=== PATIENT | male | born 1965 | race Hispanic/Latino ===

== ENCOUNTER 2018-10-11 18:26 | Emergency (ER) | payer SELFPAY ==
[2018-10-11] MEDS ORDERED: ONDANSETRON 4 MG/2 ML VIAL ONE (19:00)
[2018-10-11] MEDS ORDERED: FENTANYL CITR 100 MCG/2 ML ONE (19:00)
[2018-10-11] MEDS ORDERED: NA CHLORIDE 0.9% 1,000 ML ONE (19:00)
[2018-10-11 19:06] LABS: Basophils % 0.7 % (0-1.3); Hematocrit 38.7 % (39.6-49.0); Lymphocytes % 20.9 % (15.3-44.8); MPV 8.7 fL (7.6-11.3); RBC Red Blood Cell Count 3.93 M/uL (4.33-5.43)
[2018-10-11 19:10] LABS: Protime INR 1.05
[2018-10-11 19:21] LABS: Albumin 3.3 g/dL (3.4-5.0); Bilirubin Total 0.4 mg/dL (0.2-1.0); Potassium 3.7 mmol/L (3.5-5.1)
[2018-10-11 20:15] LABS: Urine Bacteria 20-50 /HPF (NONE SEEN); Urine Culture Reflex Order REFLEXED; Urine Mucus 1+ /HPF (NONE SEEN)
[2018-10-11 20:15] LABS: Urine Blood TRACE (NEG); Urine Glucose NEGATIVE (NEG); Urine Protein NEGATIVE (NEG); Urine pH 5.5 (5.0-7.0)
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
--- NOTE | 2018-10-12 11:22 | EKG ---
Test Date: 2018-10-11 Test Time: 18:58:08 Dining Services Director: SWG MEASUREMENT RESULTS: Intervals: Rate: 55 DC: 158 QRSD: 112 QT: 418 QTc: 399 [place]: P: 32 DC: 158 QRS: -34 T: 6 INTERPRETIVE STATEMENTS: Sinus bradycardia Left axis deviation Possible Lateral infarct, age undetermined Abnormal ECG Compared to ECG 07/13/2015 05:25:38 Left-axis deviation now present Myocardial infarct finding now present Sinus rhythm no longer present Electronically Signed On 10-12-18 11:19:23 CDT by Wenceslao Baez
== END 2018-10-11 21:24 | disposition home or self-care (01) ==
LOC: ER 18:26
DX: S61.031A Puncture wound without foreign body of right thumb without damage to nail, initial encounter (principal); T63.091A Toxic effect of venom of other snake, accidental (unintentional), initial encounter; R11.0 Nausea
CPT/HCPCS: 36415; 80053; 81003; 81015; 82550; 85025; 85379; 85384; 85610; 85730; 87086; 87088; 93005; 96361; 96374; 96375; 99284; J2405; J3010; J7030

== ENCOUNTER 2018-12-26 21:36 | Emergency (ER) | payer OTHER ==
[2018-12-26] MEDS ORDERED: LIDOCAINE 4% PATCH ONE (22:21)
[2018-12-26] MEDS ORDERED: KETOROLAC 30 MG/ML INJ ONE (22:21)
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
[2018-12-27 02:09] VITALS: BP 123/86; TEMP 97; O2SAT 97
== END 2018-12-26 23:37 | disposition home or self-care (01) ==
LOC: ER 21:36
DX: M25.562 Pain in left knee (principal); G89.29 Other chronic pain; F17.210 Nicotine dependence, cigarettes, uncomplicated
CPT/HCPCS: 96372; 99283

== ENCOUNTER 2020-06-10 15:06 | Inpatient (IN) | payer OTHER ==
[2020-06-10 22:39] LABS: Absolute Lymphocytes (CBC) 0.7 K/uL (0.7-4.9); Basophils % 0.1 % (0-1.3); Hematocrit 44.6 % (39.6-49.0); MPV 9.1 fL (7.6-11.3)
[2020-06-10] MEDS ORDERED: MORPHINE 4 MG/ML SYR ONE (22:39)
[2020-06-10] MEDS ORDERED: NA CHLORIDE 0.9% 1,000 ML ONE (22:39)
[2020-06-10] MEDS ORDERED: ACETAMINOPHEN 500 MG TAB ONE (22:39)
[2020-06-10] MEDS ORDERED: ONDANSETRON 4 MG/2 ML VIAL ONE (22:39)
[2020-06-10 22:50] LABS: ALT/SGPT 20 U/L (12-78); AST/SGOT 17 U/L (15-37); Albumin 2.7 g/dL (3.4-5.0); Alkaline Phosphatase 162 U/L (45-117); BUN Blood Urea Nitrogen 18 mg/dL (7-18); Bicarbonate 26 mmol/L (21-32); Bilirubin Direct 0.4 mg/dL (0-0.2); Bilirubin Total 0.8 mg/dL (0.2-1.0); Glucose Level 122 mg/dL (74-106); Lipase 119 U/L (73-393); Potassium 3.8 mmol/L (3.5-5.1); Protein, Total 8.3 g/dL (6.4-8.2); Sodium Level 135 mmol/L (136-145)
[2020-06-10 23:30] LABS: Blood Morphology Comment NOT SEEN (NOT SEEN); Platelet Estimate ADEQ
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
[2020-06-11 00:24] LABS: Urine Blood 2+ (Negative); Urine Glucose Negative (Negative); Urine Protein 2+ (Negative); Urine Specific Gravity <=1.005 (1.005-1.030); Urine pH 5.5 (5.0-7.0)
[2020-06-11] MEDS ORDERED: PIPER/TAZO/NS 3.375gm 3.375 GM/100 ML BAG ONE ×5 (00:25→17:14)
[2020-06-11 01:53] VITALS: BMI 35.9
[2020-06-11] MEDS: NA CHLORIDE 0.9% 1,000 ML IV SCH ×4 (02:01→20:29)
--- NOTE | 2020-06-11 03:31 | P.HP ---
Certification for Inpatient Patient admitted to: Inpatient With expected LOS: >2 Midnights Patient will require the following post-hospital care: None Practitioner: I am a practitioner with admitting privileges, knowledge of patient current condition, hospital course, and medical plan of care. Services: Services provided to patient in accordance with Admission requirements found in Title 42 Section 412.3 of the Code of Federal Regulations Patient History Date of Service: 06/11/20 Reason for admission: perforated diverticulitis History of Present Illness: Mr. 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 He said the pain has been excruciating and he has been unable to move since then. Pain radiates to his back and feels worse when he is lying on his back. Relief with pain medication and sitting upright. Reports night sweats, chills, bloating, nausea and vomiting. He smokes 1/2ppd. WBC 17.6. Alk Phos 162. CT scan suspicious for perforated diverticulitis. Allergies No Known Allergies Allergy (Verified 06/11/20 01:53) - Past Medical/Surgical History Has patient received pneumonia vaccine in the past: No Diabetic: No -: Chronic Knee Pain -: Knee Surgery -: Ankle Surgery - Family History Mother -: Heart disease Father -: Heart disease - Social History Smoking Status: Light Tobacco smoker (1-9 cigarettes/day) Alcohol use: No CD- Drugs: No Caffeine use: No Place of Residence: Home Review of Systems General: Chills, Sweats, As per HPI Eyes: Unremarkable ENT: Unremarkable Respiratory: Unremarkable Cardiovascular: Unremarkable Gastrointestinal: Nausea, Vomiting, Abdominal Pain, As per HPI Musculoskeletal: Unremarkable Integumentary: Unremarkable Neurological: Unremarkable Lymphatics: Unremarkable Physical Examination - Vital Signs Temperature: 98.4 F Blood Pressure: 142/81 Pulse: 89 Respirations: 18 Pulse Ox (%): 99 - Physical Exam General: Alert, In no apparent distress, Oriented x3, Cooperative HEENT: Atraumatic, Normocephalic, PERRLA, Mucous membr. moist/pink, EOMI, Sclerae nonicteric Neck: Supple, 2+ carotid pulse no bruit, JVD not distended, No Thyromegaly, No LAD Respiratory: Clear to auscultation bilaterally, Normal air movement Cardiovascular: No edema, Normal pulses, Regular rate/rhythm, Normal S1 S2, No gallops, No rubs, No murmurs Capillary refill: <2 Seconds Gastrointestinal: Normal bowel sounds, No ascites, No tenderness, No masses, No rebound, No guarding Musculoskeletal: No clubbing, No swelling, No contractures, No erythema, No tenderness, No warmth Integumentary: No rashes, No breakdown, No significant lesion, No tenderness/swelling, No erythema, No warmth, No cyanosis Neurological: Normal speech, Normal strength at 5/5 x4 extr, Normal tone, Sensation intact, Cranial nerves 3-12 intact, Normal affect Lymphatics: No axilla or inguinal lymphadenopathy - Studies Laboratory Data (last 24 hrs) 06/10/20 22:00: WBC 17.70 H, Hgb 14.3, Hct 44.6, Plt Count 257 06/10/20 22:00: Sodium 135 L, Potassium 3.8, BUN 18, Creatinine 0.85, Glucose 122 H, Total Bilirubin 0.8, AST 17, ALT 20, Alkaline Phosphatase 162 H, Lipase 119 Assessment and Plan - Plan Assessment perforated diverticulitis BMI >35 tobacco use disorder Plan Adri consulted NPO, Zosyn q6hr, Zofran and morphine PRN, IVF0 Urinalysis pending, 2+ blood on dipstick A1c, lipid panel, tsh/t4 pending Discharge Plan: Home Plan to discharge in: 48 Hours - Advance Directives Does patient have a Living Will: No Does patient have a Durable POA for Healthcare: No - Code Status/Comfort Care Code Status Assessed: Yes (full code ) Critical Care: No Time Spent Managing Pts Care (In Minutes): 70
[2020-06-11] MEDS ORDERED: NA CHLORIDE 0.9% 1,000 ML ONE ×2 (03:46→12:45)
[2020-06-11] MEDS: PIPER/TAZO/NS 3.375gm 3.375 GM/100 ML BAG IVPB SCH ×3 (05:51→17:03)
[2020-06-11 06:22] LABS: Absolute Lymphocytes (CBC) 0.9 K/uL (0.7-4.9); Basophils % 0.5 % (0-1.3); Hematocrit 36.6 % (39.6-49.0); Lymphocytes % 5.3 % (15.3-44.8); MPV 8.8 fL (7.6-11.3); RBC Red Blood Cell Count 3.92 M/uL (4.33-5.43)
[2020-06-11 06:47] LABS: ALT/SGPT 16 U/L (12-78); AST/SGOT 15 U/L (15-37); Albumin 2.1 g/dL (3.4-5.0); Alkaline Phosphatase 127 U/L (45-117); BUN Blood Urea Nitrogen 18 mg/dL (7-18); Bicarbonate 26 mmol/L (21-32); Bilirubin Total 0.7 mg/dL (0.2-1.0); Glucose Level 102 mg/dL (74-106); HDL Cholesterol 10 mg/dL (40-60); LDL Cholesterol, Calculated 62 (<130); Phosphorus 2.8 mg/dL (2.5-4.9); Potassium 3.4 mmol/L (3.5-5.1); Protein, Total 6.4 g/dL (6.4-8.2); Sodium Level 138 mmol/L (136-145)
--- NOTE | 2020-06-11 10:28 | CON ---
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 He said he has had excruciating pain since then, but able to move since then. It radiated through the back, predominantly on the le ft side of his abdomen. It radiated through the entire abdomen shortly after his initial onset. He reported night sweats, chills, bloating, nausea, vomiting, but no similar episodes before or in the p ast. His last colonoscopy was over 20 years ago. He continues to have gas and bowel movement as of yesterday. His pain is mildly improved since being brought to the hospital. Past Medical History: Significant for tobacco use, chronic knee pain. Past Surgical History: Includes only knee surgery and ankle surgery. Social History: Smoking; he smokes half a pack to a pack per day. He denies alcohol or recreational drug use. He does use methadone. He has a history of chronic pain medication abuse. Home Medications: He cannot recall. Review of Systems: A 10-point review of systems other than HPI, denies. Physical Examination: Vital Signs: At the time of my examination; his vital signs were a BMI of 36, his blood pressure 125 /63, pulse 68, respiratory rate 17, temperature 98.1. General: He is awake, alert, oriented. Psychiatric: He is appropriate. Conversive. He appears in no apparent distress. HEENT: Normocephalic. His sclerae are anicteric. His mucous membranes are moist. His dentition is very poor with multiple teeth missing and broken. Neck: Supple without JVD. Chest: Normal expansion and excursion. Cardiovascular: Regular rate and rhythm. Pulmonary: Clear to auscultation bilaterally. Abdomen: Soft with global tenderness to palpation, worse in the left lower quadrant and suprapubic a aggie near the midline. He has mild rebound, mild voluntary guarding, and no peritonitis. Extremities: No clubbing, cyanosis, or edema. Skin: Warm and dry. Laboratory Data: Reveals a white blood count of 16.6, hemoglobin is 12.0, hematocrit 36.6, platelet count is 222. Neutrophils are 87%. His sodium is 138, potassium 3.4, chloride 105, carbon dioxide 2 6, BUN is 18, creatinine 0.64, glucose is 102. His calcium is 8.0, phosphorus 2.8, magnesium 2.0, to daysi bilirubin 0.7, direct bilirubin 0.4 on admission. AST 15, ALT 16, alkaline phosphatase 127. His lipase is 119 on admission. His urine had 2+ blood and ketones and protein on evaluation. He had a CT scan performed of the abdomen and pelvis, which was read by the [facility] as per forated acute sigmoid colonic diverticulitis, a [id number] amount of intraperitoneal free air, and formation of 2 nearby gas and fluid containing collections measuring 6.3 and 7.3 cm, both of the se mostly contained gas. Assessment And Plan: This is a 55-year-old male, who presents with signs and symptoms of perforated diverticulitis. 1.IV fluid hydration. 2.Antibiotic coverage with Zosyn 3.375 IV q.6. 3.Continue medical management, electrolyte correction. 4.Continue medical management for his history of drug abuse and methadone usage. 5.I have evaluated the patient and have indicated the patient would benefit from IV therapy and pote ntial interventional radiologic drainage of these collections should they progress and should his sym ptoms not improve significantly. If this is not an option, I have also explained that the patient co uld potentially require surgery should his symptoms worsen and that would entail an exploratory lapar otomy, possible bowel resection, possible colostomy creation and indicated procedures. The patient agrees to proceed with the above stated roma nDella PLEITEZ/GREY Voice ID: [id number] Report ID: [id number]
--- NOTE | 2020-06-11 11:52 | RAD REPORT ---
EXAM DESCRIPTION: CT ABDOMEN PELVIS WITH IV CONTRAST CLINICAL HISTORY: ABD PAIN. COMPARISON: None. TECHNIQUE: CT of the abdomen and pelvis was performed following intravenous administration of iodina jhonny contrast. Arterial phase images through the abdomen, and portal venous phase images through the a bdomen and pelvis were obtained. Oral contrast was not administered. Axial, coronal, and sagittal sof t tissue window reconstructions were created and sent to PACS. This exam was performed according to our departmental dose-optimization program, which includes autom ated exposure control, adjustment of the mA and/or kV according to patient size and/or use of iterati ve reconstruction technique. FINDINGS: Thoracic: No significant abnormality. Hepatobiliary: Punctate hypodense lesion in the superior left hepatic lobe, possibly a cyst. No aliza rning hepatic lesion identified. The hepatic and portal veins are patent. The gallbladder is unremark able. No biliary ductal dilatation. Pancreas: Unremarkable. Spleen: Unremarkable. Gastrointestinal: There is an inflamed diverticulum in the proximal sigmoid colon with mild surroundi ng fat stranding, and a small to moderate amount of free air extending into the anterior upper abdome n. There are two gas and fluid containing collections which contain mostly gas, which are located in the left mid abdomen (5.4 x 6.3 cm), and in the midline central abdomen (7.3 x 4.5 cm). No evidence o f bowel obstruction. The appendix is normal. Adrenals: No abnormality identified in either adrenal gland. Renal: No concerning parenchymal abnormality in either kidney. No hydronephrosis or urolithiasis. Bladder/Reproductive: Unremarkable appearance of the urinary bladder by CT technique. Vascular/Lymphatics: No lymphadenopathy identified by CT size criteria. Abdominal aorta is normal in caliber. Trace calcific atherosclerosis. The major visceral vessels are patent. Musculoskeletal: No concerning osseous lesion identified. Disc degenerative changes in the lower lumb ar spine. Fluid / peritoneum: No significant free fluid. No free intraperitoneal air identified. IMPRESSION Perforated acute sigmoid colonic diverticulitis a small to moderate amount of intraperito leesa free air, and formation of two nearby gas and fluid containing collections, measuring 6.3 cm and 7.3 cm (both of these mostly contains gas). THIS REPORT CONTAINS FINDINGS THAT MAY BE CRITICAL TO PATIENT CARE: The findings were verbally discu ssed via telephone conference with Dr. Jose Angel Randolph on 06/10/2020 11:49 PM CDT. The results were ack nowledged and understood. Electronically signed by: Jolynn Garcia MD 06/10/2020 11:53 PM CDT Due to temporary technical issues with the PACS/Fluency reporting system, reports are being signed by the in house radiologist without review as a courtesy to ensure prompt reporting. The interpreting r adiologist is fully responsible for the content of the report.
[2020-06-11] MEDS ORDERED: MORPHINE 2 MG/ML SYR ONE (13:16)
[2020-06-11] MEDS: MORPHINE 2 MG/ML SYR IV PRN ×2 (13:20→21:50)
--- NOTE | 2020-06-11 16:39 | P.PN ---
Subjective Date of Service: 06/11/20 Chief Complaint: perforated diverticulitis Subjective: Improving Physical Examination - Vital Signs Temperature: 98.7 F Blood Pressure: 131/66 Pulse: 87 Respirations: 17 Pulse Ox (%): 97 - Studies Laboratory Data (last 24 hrs) 06/10/20 22:00: WBC 17.70 H, Hgb 14.3, Hct 44.6, Plt Count 257 06/10/20 22:00: Sodium 135 L, Potassium 3.8, BUN 18, Creatinine 0.85, Glucose 122 H, Total Bilirubin 0.8, AST 17, ALT 20, Alkaline Phosphatase 162 H, Lipase 119 Assessment & Plan Discharge Plan: Home Plan to discharge in: Greater than 2 days Physician Review Additional Text: Physical exam: Patient alert, cooperative. Still with mild pain. Heart: Regular rate and rhythm heart Lungs: Clear to auscultation Abdomen: Tender to the abdominal region. Impression: Perforated acute sigmoid colonic diverticulitis with small to moderate amount of enteral peritoneal free air and formation of 2 nearby gas and fluid containing collections measuring 6.3 cm and 7.3 cm mostly containing gas Prediabetes Plan: Patient remains n.p.o. at this time. Continue antibiotic therapy. Continue DVT prophylaxis. Continue pain medication. Case discussed with surgery. Continue to monitor the patient closely. Serial exams to follow. If worse patient may require surgical intervention. Patient still may require intervention including interventional radiology but this will be determined in the next couple of days. Patient will likely require repeat CT scan to further evaluate. Patient with prediabetes. We will monitor this closely. Continue to reassess. We will discuss case further with surgery tomorrow. Time Spent Managing Pts Care (In Minutes): 55
[2020-06-11] MEDS: ENOXAPARIN 40 MG/0.4 ML SQ SCH (17:00)
[2020-06-11] MEDS ORDERED: ENOXAPARIN 40 MG/0.4 ML SQ ONE (17:14)
[2020-06-11] MEDS ORDERED: PIPER/TAZO/NS 3.375gm 6.750 GM/200 ML BAG ONE (20:17)
[2020-06-11 22:04] LABS: Urine Appearance CLOUDY (Clear); Urine Blood 2+ (Negative); Urine Color DK YELLOW (Yellow); Urine Glucose NEGATIVE (Negative); Urine Protein 2+ (Negative); Urine Specific Gravity >=1.030 (1.005-1.030)
[2020-06-11 22:06] LABS: Urine Bilirubin 1+ (Negative); Urine Microscopic Reflex ORDER UMIC
[2020-06-11 22:15] LABS: Urine Bacteria <20 /HPF (NONE SEEN); Urine Mucus 1+ /HPF (NONE SEEN)
[2020-06-12] MEDS: PIPER/TAZO/NS 3.375gm 3.375 GM/100 ML BAG IVPB SCH ×5 (00:38→18:30)
[2020-06-12] MEDS: MORPHINE 2 MG/ML SYR IV PRN ×4 (04:21→22:37)
[2020-06-12 04:48] LABS: Absolute Lymphocytes (CBC) 0.8 K/uL (0.7-4.9); Basophils % 0.3 % (0-1.3); Hematocrit 35.8 % (39.6-49.0); MPV 8.8 fL (7.6-11.3); RBC Red Blood Cell Count 3.88 M/uL (4.33-5.43)
[2020-06-12] MEDS: NA CHLORIDE 0.9% 1,000 ML IV SCH ×3 (05:02→20:19)
[2020-06-12 05:13] LABS: ALT/SGPT 20 U/L (12-78); AST/SGOT 26 U/L (15-37); Albumin 2.1 g/dL (3.4-5.0); Alkaline Phosphatase 158 U/L (45-117); BUN Blood Urea Nitrogen 18 mg/dL (7-18); Bicarbonate 28 mmol/L (21-32); Bilirubin Total 0.8 mg/dL (0.2-1.0); Glucose Level 88 mg/dL (74-106); HDL Cholesterol 10 mg/dL (40-60); LDL Cholesterol, Calculated 77 (<130); Phosphorus 2.7 mg/dL (2.5-4.9); Potassium 3.3 mmol/L (3.5-5.1); Protein, Total 6.5 g/dL (6.4-8.2); Sodium Level 141 mmol/L (136-145)
[2020-06-12] MEDS: KCL 20 MEQ/100 mL IVPB 20 MEQ/100 ML BAG IV SCH ×2 (08:18→11:00)
--- NOTE | 2020-06-12 10:02 | RAD REPORT ---
EXAM DESCRIPTION: CT - Abdomen Pelvis W Contrast - 06/12/2020 9:20 am CLINICAL HISTORY: follow up perforated diverticulitis COMPARISON: Abdomen Pelvis W Contrast dated 06/10/2020; CT ABD PELVIS W CONTRAST dated 09/09/2008 TECHNIQUE: Biphasic, helical CT imaging of the abdomen and pelvis was performed following 100 ml non -ionic IV contrast. No oral contrast administered. All CT scans are performed using dose optimization technique as appropriate and may include automated exposure control or mA/KV adjustment according to patient size. FINDINGS: No suspicious findings in the lung bases. The liver, spleen, and pancreas show no suspicious findings. Gallbladder and biliary tree are also wi thout suspicious finding. Symmetric renal function is seen with no hydronephrosis or suspicious renal mass. No pyelonephritis o r acute parenchymal process. Gallbladder is fully contracted. No gross abnormality seen. No adrenal a bnormalities. No stomach or small bowel abnormality seen. No appendicitis findings. Cecum through descending colon continues to show no acute finding. Sigmoid diverticulosis is present. Diverticulitis changes of the sigmoid colon seen June 10 are still present. The amount of free intraperitoneal air has increased. A 9 centimeter sized thin-walled air fluid collection is present in the anterior left mid abdomen adj acent to multiple small bowel loops. There is a second 7 x 5 cm air in fluid thin-walled collection i n the anterior mid abdomen surrounded by small bowel loops. Both of these collections are similar in size to June 10. No new air-fluid collection seen. No suspicious bony findings. IMPRESSION: Increasing quantity of free intraperitoneal air since the June 10 study. Thin-walled air fluid collections in the anterior mid abdomen and left anterior mid abdomen are stabl e from prior imaging. The sigmoid diverticulitis changes are similar to 06/10/2020 imaging.
[2020-06-12] MEDS ORDERED: Ringers Lactate 1,000 ML IV ONE ×2 (12:31→16:12)
[2020-06-12] MEDS: BUPIVACAINE 0.25% PF 30 ML VIAL ONE ×2 (13:52→14:22)
[2020-06-12] MEDS ORDERED: propofoL 200 MG/20 ML VIAL IV ONE (13:59)
[2020-06-12] MEDS ORDERED: LIDOCAINE 1% MPF 5 ML VIAL ONE (14:00)
[2020-06-12] MEDS ORDERED: FENTANYL CITR 250 MCG/5 ML ONE (14:01)
[2020-06-12] MEDS ORDERED: ROCURONIUM 50 MG/5 ML VIAL IV ONE ×2 (14:02→15:24)
[2020-06-12] MEDS ORDERED: SUCCINYLCHOLINE 20 MG/ML (10 ML) IV ONE (14:07)
[2020-06-12] MEDS ORDERED: ONDANSETRON 4 MG/2 ML VIAL ONE ×2 (14:50→17:14)
[2020-06-12] MEDS ORDERED: KETOROLAC 30 MG/ML INJ ONE (14:50)
[2020-06-12] MEDS ORDERED: FENTANYL CITR 100 MCG/2 ML ONE (15:24)
--- NOTE | 2020-06-12 15:48 | P.PN ---
Subjective Date of Service: 06/12/20 Chief Complaint: perforated diverticulitis Subjective: Worsening Physical Examination - Vital Signs Temperature: 96.6 F Blood Pressure: 157/83 Pulse: 93 Respirations: 20 Pulse Ox (%): 96 Assessment & Plan Discharge Plan: Home Plan to discharge in: Greater than 2 days Physician Review Additional Text: Physical exam: Patient had more abdominal pain and distention overnight. Heart: Regular rate and rhythm heart Lungs: Clear to auscultation Abdomen: Moderate distention noted. Abdominal pain noted. Extremities: Good range of motion to upper lower extremities. Impression: Perforated acute sigmoid colonic diverticulitis with small to moderate amount of enteral peritoneal free air and formation of 2 nearby gas and fluid containing collections measuring 6.3 cm and 7.3 cm mostly containing gas Prediabetes Plan: More pain and distention noted. Repeat CT scan shows more intraperitoneal air. Continue IV antibiotic therapy. Continue IV pain medication. Case discussed with surgery. Surgical intervention will be required. Surgery plans for intervention today. Await after intervention. Continue current plan of care. We will continue to monitor closely. Time Spent Managing Pts Care (In Minutes): 55
[2020-06-12] MEDS ORDERED: GLYCOPYRROLATE 0.2 MG/ML SYR ONE (16:00)
[2020-06-12] MEDS ORDERED: NEOSTIGMINE 1 MG/ML -5 ML ONE (16:02)
[2020-06-12] MEDS ORDERED: EPHEDRINE SULF 50 MG/ML VIAL ONE (16:10)
--- NOTE | 2020-06-12 16:19 | P.OP ---
Preoperative diagnosis: Perforated Sigmoid Diverticulitis Postoperative diagnosis: Perforated Sigmoid Diverticulitis Primary procedure: Exploratory Laparotomy Secondary procedure: Hartmanns Procedure Anesthesia: GETA Estimated blood loss: 75cc Specimen: none Findings: Mutliple intra-abdominal abscesses with perforation of sigmoid Complications: None Drain(s): Nasogastric, Urinary catheter, RADHA drain (10 mm Flat) Transferred to: Recovery Room Condition: Good
[2020-06-12] MEDS: HYDROMORPHONE HCL 1 MG/ML INJ ONE ×6 (16:58→17:41)
[2020-06-12] MEDS: ENOXAPARIN 40 MG/0.4 ML SQ SCH (17:00)
[2020-06-12] MEDS ORDERED: HYDROMORPHONE HCL 1 MG/ML INJ ONE (17:52)
--- NOTE | 2020-06-12 19:44 | OP ---
Date of Procedure: 06/12/2020 Surgeon: Jhonny Rush MD, Preoperative Diagnosis: Perforated sigmoid diverticulitis. Postoperative Diagnosis: Perforated sigmoid diverticulitis. Procedures Performed: 1.Exploratory laparotomy and Meenu procedure. 2.Abdominal washout and colostomy creation with maturation. Anesthesia: General endotracheal. Estimated Blood Loss: 75 mL. Specimen: None. Findings: Multiple intraabdominal abscesses, perforation of sigmoid colon noted and stage IV feculen t peritonitis. Complications: None. Drains: Nasogastric, urinary catheter, and a 10 mm flat RADHA drain placed in the abdomen. Disposition: The patient was transferred to recovery room in good condition. Brief History Of Present Illness: The patient is a 55-year-old male, who came to the hospital with a bdominal pain that got progressively worse. CT imaging performed in the emergency room showed eviden ce of sigmoid diverticulitis with perforation. He had a moderate amount of free air. He was treated with IV antibiotics and serial exams. On subsequent examination, he was noted to be more distended and as such, a repeat CT scan was performed and personally reviewed by myself. I found that the cheryl ent had a large amount of free intraabdominal gas and what appeared to be increased fluid collection consistent with intraabdominal abscess and worsening peritonitis. As such, I spoke with our radiolog ist to see if the patient was amenable to percutaneous drainage, which was felt to be too high risk d ue to the intestinal proximity. As such, I discussed the surgical options with the patient and opted for an open exploratory laparotomy. I discussed risks, benefits, and alternatives and discussed jeannine t I would likely place a colostomy in the patient as the patient had feculent peritonitis likely give n his worsening clinical picture. Informed consent was obtained and the patient had all his question s answered and agreed to proceed. Procedure In Detail: After informed consent was obtained, the patient was brought to the operating r oom, prepped and draped in the usual sterile fashion after adequate anesthesia achieved. I performed a midline laparotomy incision down through the subcutaneous tissues with a 10-blade. I then used el ectrocautery to dissect through subcutaneous fat and expose the midline linea alba and fascia. This was grasped, elevated, and entered sharply. Dissection continued out through the preperitoneal fat t o expose the peritoneum. This was grasped, elevated, and sharply entered at this time safely without any injury. Immediately encountered was a large amount of gas. At this point, the abdomen was open ed in its entirety through the midline laparotomy incision. At this point, an exploration was initia jhonny and multiple intraabdominal abscesses were encountered with gas and purulent fluid. Exploration continued down to the left lower quadrant where feculent peritonitis was noted and a small opening in the sigmoid colon. At this point, I opted to wash the abdomen out to remove all feculent material a nd ultimately irrigated out the abdomen until it was completely clear at this point. I located a pro ximal piece of sigmoid colon, which was soft and pliable. I created a small mesenteric window after dissecting down the white line of Toldt on the left colic gutter up to near the splenic flexure. Aft er this was mobilized, I created the window as described above using electrocautery through the mesen kori and ultimately fired the TA-60 green load across the sigmoid colon at this time. The colon was then divided and clipped with [place] clamps to ensure its sealing at this time to allow for manipula tion. I mobilized both medial and lateral medially and laterally after deploying the Bookwalter and after mobilizing the colon and placing it in a tension-free manner to the abdominal wall. I opted to perform a colostomy and matured at the end of the procedure after the exploration was complete. Sig nificant intraabdominal adhesions were countered down in the pelvis and as such, I opted not to aggre ssively expose this area. The patient has a various large amount of intraperitoneal adiposity includ ing a very large pendulous omentum as well as very large epiploic appendages making dissection challe nging throughout the procedure due to repeated adipose obstruction. After the colon was mobilized ad equately, I located an area on the left lower abdomen and grasped, elevated the skin and cut a colost denise site through the subcutaneous tissues using a 10-blade scalpel. After this, I dissected down and removed the donut of adipose tissue as the patient has a very thick adipose abdominal wall. At this point, I exposed the fascia overlying the rectus muscle and dissected through the anterior rectus sh eath using a cruciate incision of electrocautery. I then the muscles bluntly using a combi nation of hemostats and Riddhi clamps to expose the peritoneum in the posterior rectus sheath. The po sterior rectus sheath and peritoneum were sharply entered using Metzenbaum scissors and hemostasis wa s achieved by widening the cruciate incision using electrocautery. At this point, 3 fingers were the n passed through the colonic abdominal wall, colostomy site and the fascia. At this point, I brought an Allis clamp through and grasped the end of the proximal colon and brought out through the future colostomy site in the left lower quadrant incision. At this point, I inspected the intraperitoneal c avity and found that there was no tension to the colostomy at this point. I then irrigated the abdom en once again and sucked out all effluent after irrigating the abdomen multiple times and suctioned o ut all the effluent. I placed a 10 mm flat RADHA drain in the pelvis where the largest abscess was enco untered and curled it cranially toward the second abscess cavity near the site of perforation on the sigmoid colon, Meenu pouch area. At this point, the drain was secured to the skin and the abdomen was inspected at this point. I then placed an abdominal FISH into the abdomen and closed the abdome n with a running #1 looped PDS suture with good apposition of the tissues. The FISH was removed just prior to complete closure and the abdomen was closed at this point. The skin was copiously irrigate d multiple times until completely clear and closed with interrupted michael at this time. I then tur luis enrique to mature the colostomy in the left lower quadrant and brought the colostomy up to the surface. There was some redundant colon at this point, which had a somewhat dusky appearance. As such, I rese cted this using Metzenbaum scissors until non-ischemic pink tissue was appreciated. The colon was op ened at this point and secured to the skin using a combination of interrupted 3-0 Vicryl and 3-0 nylo n sutures circumferentially around with good apposition of the tissues. I then digitally tested the colostomy and found good passage through the abdominal fascia. Then, an ostomy appliance was applied . The ostomy was pink and viable at this point at the end of the procedure and the patient had a melony rile dressing placed over top. The patient tolerated the procedure well without evidence of complica tion and transferred to PACU in good condition. All counts were correct at the end of the case. PRICILLA/GREY Voice ID: [id number] Report ID: [id number]
[2020-06-12] MEDS: HYDROMORPHONE HCL 1 MG/ML INJ IV PRN (20:18)
[2020-06-12] MEDS: INSULIN -REGULAR HUMAN 50 UNIT/0.5 ML ML SQ SCH (21:00)
[2020-06-12] MEDS: ONDANSETRON 4 MG/2 ML VIAL IV PRN (23:47)
[2020-06-13] MEDS: HYDROMORPHONE HCL 1 MG/ML INJ IV PRN ×3 (00:42→21:24)
[2020-06-13] MEDS: PIPER/TAZO/NS 3.375gm 3.375 GM/100 ML BAG IVPB SCH ×3 (01:00→15:56)
[2020-06-13] MEDS ORDERED: LORazepam 2 MG/ML VIAL IV ONE (03:42)
[2020-06-13] MEDS: NICOTINE 14 MG/PAT TD SCH ×2 (03:42→09:33)
[2020-06-13] MEDS ORDERED: LORazepam 2 MG/ML VIAL ONE (04:02)
[2020-06-13] MEDS ORDERED: NICOTINE 14 MG/PAT TD ONE (04:02)
[2020-06-13] MEDS: MORPHINE 2 MG/ML SYR IV PRN ×4 (04:22→23:11)
[2020-06-13] MEDS: NA CHLORIDE 0.9% 1,000 ML IV SCH ×3 (04:29→23:15)
[2020-06-13 05:30] LABS: Absolute Lymphocytes (CBC) 0.9 K/uL (0.7-4.9); Basophils % 0.3 % (0-1.3); Hematocrit 39.2 % (39.6-49.0); Lymphocytes % 6.1 % (15.3-44.8); MPV 8.6 fL (7.6-11.3); RBC Red Blood Cell Count 4.25 M/uL (4.33-5.43)
[2020-06-13 05:36] LABS: BUN Blood Urea Nitrogen 19 mg/dL (7-18); Bicarbonate 27 mmol/L (21-32); Glucose Level 130 mg/dL (74-106); Magnesium 2.1 mg/dL (1.8-2.4); Phosphorus 2.9 mg/dL (2.5-4.9); Potassium 3.4 mmol/L (3.5-5.1); Sodium Level 141 mmol/L (136-145)
[2020-06-13] MEDS: INSULIN -REGULAR HUMAN 50 UNIT/0.5 ML ML SQ SCH ×4 (07:30→21:00)
[2020-06-13] MEDS: KCL 20 MEQ/100 mL IVPB 20 MEQ/100 ML BAG IV SCH ×2 (09:34→12:15)
[2020-06-13] MEDS: ONDANSETRON 4 MG/2 ML VIAL IV PRN (12:15)
--- NOTE | 2020-06-13 12:25 | P.PN ---
Subjective Date of Service: 06/13/20 Chief Complaint: perforated diverticulitis Subjective: Improving (Patient feels better, sitting in chair.) Physical Examination - Vital Signs Temperature: 97.3 F Blood Pressure: 126/69 Pulse: 110 Respirations: 18 Pulse Ox (%): 96 - Physical Exam General: Alert, In no apparent distress, Cooperative Respiratory: Clear to auscultation bilaterally, Normal air movement Gastrointestinal: Other (soft, mild appropriate TTP, ND, obese, colostomy viable, minimal fluid in bag, RADHA serous) Assessment And Plan - Current Problems (Diagnosis) (1) Perforation of sigmoid colon due to diverticulitis Current Visit: Yes Status: Acute Plan: 55 year old super morbid obese man s/p Exploratory laparotomy, Hartmanns procedure for perforated sigmoid diverticulitis - continue current pain regime - continue IV hydration - incentive spirometry - serial abdominal exams, await bowel function, RADHA serous - DC oliveros - ambulate with assist - abdominal binder - continue NPO, will likely DC in AM - continue Zosyn - continue medical management - ok to start lovenox Physician Review Additional Text: Physical exam: Patient had more abdominal pain and distention overnight. Heart: Regular rate and rhythm heart Lungs: Clear to auscultation Abdomen: Moderate distention noted. Abdominal pain noted. Extremities: Good range of motion to upper lower extremities. Impression: Perforated acute sigmoid colonic diverticulitis with small to moderate amount of enteral peritoneal free air and formation of 2 nearby gas and fluid containing collections measuring 6.3 cm and 7.3 cm mostly containing gas Prediabetes Plan: More pain and distention noted. Repeat CT scan shows more intraperitoneal air. Continue IV antibiotic therapy. Continue IV pain medication. Case discussed with surgery. Surgical intervention will be required. Surgery plans for intervention today. Await after intervention. Continue current plan of care. We will continue to monitor closely.
--- NOTE | 2020-06-13 12:53 | EKG ---
Test Date: 2020-06-12 Test Time: 12:14:42 Correctional Counselor: ALDEN MEASUREMENT RESULTS: Intervals: Rate: 82 NV: 144 QRSD: 106 QT: 404 QTc: 472 [place]: P: 20 NV: 144 QRS: -33 T: 19 INTERPRETIVE STATEMENTS: Normal sinus rhythm Left axis deviation Abnormal ECG Compared to ECG 10/11/2018 18:58:08 Sinus bradycardia no longer present Myocardial infarct finding no longer present Electronically Signed On 06-13-20 12:52:12 CDT by Wenceslao Baez
--- NOTE | 2020-06-13 15:29 | P.PN ---
Subjective Date of Service: 06/13/20 Chief Complaint: perforated diverticulitis Subjective: Improving, Doing well Physical Examination - Vital Signs Temperature: 97.3 F Blood Pressure: 126/69 Pulse: 110 Respirations: 18 Pulse Ox (%): 96 Assessment & Plan Discharge Plan: Home Plan to discharge in: Greater than 2 days Physician Review Additional Text: Physical exam: Patient doing well postoperatively. Heart: Regular rate and rhythm heart Lungs: Clear to auscultation Abdomen: Binder in place. Colostomy in place. Postsurgical changes noted. Postsurgical pain noted Extremities: Good range of motion to upper lower extremities. Impression: Perforated acute sigmoid colonic diverticulitis with small to moderate amount of enteral peritoneal free air and formation of 2 nearby gas and fluid containing collections measuring 6.3 cm and 7.3 cm mostly containing gas status post exploratory laparotomy, Coffman's procedure Prediabetes Plan: Patient doing well postoperatively. Continue with IV hepatic therapy, pain control. Continue DVT prophylaxis. Encourage incentive spirometer. Continue binder. Continue n.p.o. at this time. Await further recommendations from surgery. Will monitor closely. We will teach on colostomy care. Likely home in the next 3 to 5 days. Time Spent Managing Pts Care (In Minutes): 55
[2020-06-13] MEDS: ENOXAPARIN 40 MG/0.4 ML SQ SCH (17:00)
[2020-06-14] MEDS: PIPER/TAZO/NS 3.375gm 3.375 GM/100 ML BAG IVPB SCH ×3 (00:34→16:52)
[2020-06-14] MEDS: HYDROMORPHONE HCL 1 MG/ML INJ IV PRN ×4 (03:00→22:17)
[2020-06-14] MEDS: MORPHINE 2 MG/ML SYR IV PRN ×2 (05:46→12:00)
[2020-06-14] MEDS: NA CHLORIDE 0.9% 1,000 ML IV SCH ×2 (05:47→12:29)
[2020-06-14 06:03] LABS: Absolute Lymphocytes (CBC) 1.1 K/uL (0.7-4.9); Basophils % 0.4 % (0-1.3); Lymphocytes % 8.2 % (15.3-44.8); MPV 8.8 fL (7.6-11.3); RBC Red Blood Cell Count 4.02 M/uL (4.33-5.43)
[2020-06-14 06:15] LABS: BUN Blood Urea Nitrogen 16 mg/dL (7-18); Bicarbonate 30 mmol/L (21-32); Glucose Level 121 mg/dL (74-106); Magnesium 2.5 mg/dL (1.8-2.4); Phosphorus 1.8 mg/dL (2.5-4.9); Potassium 3.1 mmol/L (3.5-5.1); Sodium Level 142 mmol/L (136-145)
[2020-06-14] MEDS: INSULIN -REGULAR HUMAN 50 UNIT/0.5 ML ML SQ SCH ×4 (07:30→21:00)
[2020-06-14] MEDS: KCL 20 MEQ/100 mL IVPB 20 MEQ/100 ML BAG IV SCH ×4 (08:33→23:00)
[2020-06-14] MEDS: NICOTINE 14 MG/PAT TD SCH (08:36)
[2020-06-14] MEDS ORDERED: POTASSIUM PHOS IN 0.9 % NACL 15 MMOL/250 ML BAG IV ONE (09:00)
[2020-06-14] MEDS ORDERED: SODIUM CHLORIDE 0.9% 10ML INJ IV PRN (11:27)
--- NOTE | 2020-06-14 15:47 | P.PN ---
Subjective Date of Service: 06/14/20 Chief Complaint: perforated diverticulitis Subjective: Improving, Doing well Physical Examination - Vital Signs Temperature: 97.5 F Blood Pressure: 135/78 Pulse: 93 Respirations: 18 Pulse Ox (%): 96 Assessment & Plan Discharge Plan: Home Plan to discharge in: 72 Hours Physician Review Additional Text: Physical exam: Patient doing well postoperatively. Heart: Regular rate and rhythm heart Lungs: Clear to auscultation Abdomen: Binder in place. Colostomy in place. Postsurgical changes noted. Postsurgical pain noted Extremities: Good range of motion to upper lower extremities. Impression: Perforated acute sigmoid colonic diverticulitis with small to moderate amount of enteral peritoneal free air and formation of 2 nearby gas and fluid containing collections measuring 6.3 cm and 7.3 cm mostly containing gas status post exploratory laparotomy, Coffman's procedure Prediabetes Plan: Patient doing well postoperatively. Continue with IV antibiotic therapy, pain control. Continue DVT prophylaxis. Encourage incentive spirometer. Continue binder. Will discuss with surgery on when he plans to adjust and advance diet. Await further recommendations from surgery. Will monitor closely. Wound care to evaluate colostomy and teach on colostomy care. Likely home in the next 3 to 5 days. Time Spent Managing Pts Care (In Minutes): 55
[2020-06-14] MEDS: NACHLORIDE 0.45% 1,000 ML IV SCH (16:52)
[2020-06-14] MEDS: ENOXAPARIN 40 MG/0.4 ML SQ SCH (16:53)
[2020-06-14] MEDS: PANTOPRAZOLE 40 MG INJ IVP SCH (21:31)
[2020-06-15] MEDS: PIPER/TAZO/NS 3.375gm 3.375 GM/100 ML BAG IVPB SCH ×4 (01:00→17:00)
[2020-06-15] MEDS: NACHLORIDE 0.45% 1,000 ML IV SCH ×2 (02:00→09:49)
[2020-06-15] MEDS: HYDROMORPHONE HCL 1 MG/ML INJ IV PRN ×4 (03:21→20:40)
[2020-06-15 06:09] LABS: Absolute Lymphocytes (CBC) 1.4 K/uL (0.7-4.9); Basophils % 0.4 % (0-1.3); Hematocrit 34.9 % (39.6-49.0); Lymphocytes % 11.2 % (15.3-44.8); MPV 8.4 fL (7.6-11.3); RBC Red Blood Cell Count 3.81 M/uL (4.33-5.43)
[2020-06-15 06:24] LABS: BUN Blood Urea Nitrogen 17 mg/dL (7-18); Bicarbonate 30 mmol/L (21-32); Glucose Level 95 mg/dL (74-106); Magnesium 2.4 mg/dL (1.8-2.4); Phosphorus 2.2 mg/dL (2.5-4.9); Sodium Level 143 mmol/L (136-145)
[2020-06-15 06:27] LABS: Potassium 2.9 mmol/L (3.5-5.1)
[2020-06-15] MEDS: INSULIN -REGULAR HUMAN 50 UNIT/0.5 ML ML SQ SCH ×4 (07:30→20:39)
[2020-06-15] MEDS ORDERED: POTASSIUM PHOS IN 0.9 % NACL 15 MMOL/250 ML BAG IV ONE ×2 (09:00→23:26)
[2020-06-15] MEDS: PANTOPRAZOLE 40 MG INJ IVP SCH ×2 (09:47→20:40)
[2020-06-15] MEDS: NICOTINE 14 MG/PAT TD SCH (09:47)
--- NOTE | 2020-06-15 10:01 | P.PN ---
Subjective Date of Service: 06/15/20 Chief Complaint: perforated diverticulitis Subjective: Improving (patient is hungry) Physical Examination - Vital Signs Temperature: 96.8 F Blood Pressure: 169/77 Pulse: 74 Respirations: 19 Pulse Ox (%): 91 - Physical Exam General: Alert, In no apparent distress, Cooperative Gastrointestinal: Other (soft, mild appropriate TTP, incision clean, colostomy viable, skin excoriation noted inferior to colostomy RADHA serous) Assessment And Plan - Current Problems (Diagnosis) (1) Perforation of sigmoid colon due to diverticulitis Current Visit: Yes Status: Acute Plan: 55 year old super morbid obese man s/p Exploratory laparotomy, Hartmanns procedure for perforated sigmoid diverticulitis - continue current pain regime - continue IV hydration - incentive spirometry - serial abdominal exams, await bowel function, RADHA serous - DC oliveros - ambulate with assist - abdominal binder - continue NPO - continue Zosyn - continue medical management - lovenox Physician Review Additional Text: Physical exam: Patient doing well postoperatively. Heart: Regular rate and rhythm heart Lungs: Clear to auscultation Abdomen: Binder in place. Colostomy in place. Postsurgical changes noted. Postsurgical pain noted Extremities: Good range of motion to upper lower extremities. Impression: Perforated acute sigmoid colonic diverticulitis with small to moderate amount of enteral peritoneal free air and formation of 2 nearby gas and fluid containing collections measuring 6.3 cm and 7.3 cm mostly containing gas status post exploratory laparotomy, Coffman's procedure Prediabetes Plan: Patient doing well postoperatively. Continue with IV antibiotic therapy, pain control. Continue DVT prophylaxis. Encourage incentive spirometer. Continue binder. Will discuss with surgery on when he plans to adjust and advance diet. Await further recommendations from surgery. Will monitor closely. Wound care to evaluate colostomy and teach on colostomy care. Likely home in the next 3 to 5 days.
--- NOTE | 2020-06-15 11:52 | P.PN ---
Subjective Date of Service: 06/15/20 Chief Complaint: perforated diverticulitis Subjective: Improving Physical Examination - Vital Signs Temperature: 96.8 F Blood Pressure: 169/77 Pulse: 74 Respirations: 19 Pulse Ox (%): 91 Assessment & Plan Discharge Plan: Home Plan to discharge in: Greater than 2 days Physician Review Additional Text: Physical exam: Patient doing well postoperatively. NG tube in place. Heart: Regular rate and rhythm heart Lungs: Clear to auscultation Abdomen: Binder in place. Colostomy in place. Postsurgical changes noted. Postsurgical pain noted Extremities: Good range of motion to upper lower extremities. Impression: Perforated acute sigmoid colonic diverticulitis with small to moderate amount of enteral peritoneal free air and formation of 2 nearby gas and fluid containing collections measuring 6.3 cm and 7.3 cm mostly containing gas status post exploratory laparotomy, Coffman's procedure Prediabetes Plan: Patient doing well postoperatively. Continue IV antibiotic therapy. Continue pain control. Continue DVT prophylaxis. Continue incentive spirometer and abdominal binder. Spoke with surgery. Surgery plans to remove NG tube tomorrow and start clear liquids. Patient reports passage of gas and stool. Encourage ambulation. Will order physical therapy. Continue wound care recommendations for colostomy care. Will need to teach on colostomy care as well. Anticipate discharge in the next 3 to 5 days. Time Spent Managing Pts Care (In Minutes): 55
[2020-06-15] MEDS: NACHLORIDE 0.45% 1,000 ML with POTASSIUM CL 10 MEQ IV SCH ×2 (13:11)
[2020-06-15] MEDS ORDERED: ACETIC ACID 0.25% IRRIG IRR ONE (13:30)
[2020-06-15] MEDS: ENOXAPARIN 40 MG/0.4 ML SQ SCH (17:00)
[2020-06-15 21:48] LABS: BUN Blood Urea Nitrogen 17 mg/dL (7-18); Bicarbonate 27 mmol/L (21-32); Glucose Level 89 mg/dL (74-106); Phosphorus 2.5 mg/dL (2.5-4.9); Potassium 3.4 mmol/L (3.5-5.1); Sodium Level 144 mmol/L (136-145)
[2020-06-15] MEDS ORDERED: NA CHLORIDE 0.9% 250 ML ONE (23:38)
[2020-06-16] MEDS ORDERED: POTASSIUM PHOS IN 0.9 % NACL 15 MMOL/250 ML BAG IV ONE
[2020-06-16] MEDS: PIPER/TAZO/NS 3.375gm 3.375 GM/100 ML BAG IVPB SCH ×2 (01:20→09:45)
[2020-06-16] MEDS: NACHLORIDE 0.45% 1,000 ML with POTASSIUM CL 10 MEQ IV SCH ×4 (01:24→17:09)
[2020-06-16] MEDS: HYDROMORPHONE HCL 1 MG/ML INJ IV PRN ×2 (01:42→09:46)
[2020-06-16] MEDS: INSULIN -REGULAR HUMAN 50 UNIT/0.5 ML ML SQ SCH ×4 (07:30→20:53)
[2020-06-16 08:27] LABS: Absolute Lymphocytes (CBC) 1.5 K/uL (0.7-4.9); Basophils % 0.3 % (0-1.3); Lymphocytes % 12.9 % (15.3-44.8); MPV 8.6 fL (7.6-11.3); RBC Red Blood Cell Count 3.93 M/uL (4.33-5.43)
[2020-06-16 08:41] LABS: BUN Blood Urea Nitrogen 17 mg/dL (7-18); Bicarbonate 29 mmol/L (21-32); Glucose Level 82 mg/dL (74-106); Magnesium 2.2 mg/dL (1.8-2.4); Phosphorus 3.2 mg/dL (2.5-4.9); Potassium 3.4 mmol/L (3.5-5.1); Sodium Level 141 mmol/L (136-145)
[2020-06-16] MEDS: NICOTINE 14 MG/PAT TD SCH (09:45)
[2020-06-16] MEDS: PANTOPRAZOLE 40 MG INJ IVP SCH ×2 (09:45→20:52)
--- NOTE | 2020-06-16 10:43 | P.PN ---
Subjective Date of Service: 06/16/20 Chief Complaint: perforated diverticulitis Subjective: Improving (pain much improved, colostomy functional bag full x 2) Physical Examination - Vital Signs Temperature: 98.2 F Blood Pressure: 137/73 Pulse: 88 Respirations: 20 Pulse Ox (%): 99 - Physical Exam General: Alert, In no apparent distress, Cooperative Respiratory: Clear to auscultation bilaterally, Normal air movement Gastrointestinal: Other (soft, mild appropriate TTP, ND, incision clean, colostmy bag filled with stool, GEOVANNA removed @ bedside today) Assessment And Plan - Current Problems (Diagnosis) (1) Perforation of sigmoid colon due to diverticulitis Current Visit: Yes Status: Acute Plan: 55 year old super morbid obese man s/p Exploratory laparotomy, Hartmanns procedure for perforated sigmoid diverticulitis - continue current pain regime - continue IV hydration - incentive spirometry - geovanna removed - DC oliveros - ambulate with assist - abdominal binder - DC NGT, start clears - dc zosyn - continue medical management - lovenox Physician Review Additional Text: Physical exam: Patient doing well postoperatively. NG tube in place. Heart: Regular rate and rhythm heart Lungs: Clear to auscultation Abdomen: Binder in place. Colostomy in place. Postsurgical changes noted. Postsurgical pain noted Extremities: Good range of motion to upper lower extremities. Impression: Perforated acute sigmoid colonic diverticulitis with small to moderate amount of enteral peritoneal free air and formation of 2 nearby gas and fluid containing collections measuring 6.3 cm and 7.3 cm mostly containing gas status post ex ploratory laparotomy, Coffman's procedure Prediabetes Plan: Patient doing well postoperatively. Continue IV antibiotic therapy. Continue pain control. Continue DVT prophylaxis. Continue incentive spirometer and abdominal binder. Spoke with surgery. Surgery plans to remove NG tube tomorrow and start clear liquids. Patient reports passage of gas and stool. Encourage ambulation. Will order physical therapy. Continue wound care recommendations for colostomy care. Will need to teach on colostomy care as well. Anticipate discharge in the next 3 to 5 days.
--- NOTE | 2020-06-16 11:11 | P.PN ---
Subjective Date of Service: 06/16/20 Chief Complaint: perforated diverticulitis Subjective: Improving, Doing well Physical Examination - Vital Signs Temperature: 98.2 F Blood Pressure: 137/73 Pulse: 88 Respirations: 20 Pulse Ox (%): 99 Assessment & Plan Discharge Plan: Home Plan to discharge in: 48 Hours Physician Review Additional Text: Physical exam: Patient doing well postoperatively. NG tube in place. Heart: Regular rate and rhythm heart Lungs: Clear to auscultation Abdomen: Binder in place. Colostomy in place. Postsurgical changes noted. Postsurgical pain noted Extremities: Good range of motion to upper lower extremities. Impression: Perforated acute sigmoid colonic diverticulitis with small to moderate amount of enteral peritoneal free air and formation of 2 nearby gas and fluid containing collections measuring 6.3 cm and 7.3 cm mostly containing gas status post exploratory laparotomy, Coffman's procedure Prediabetes Plan: Patient continues to do well postoperatively. Spoke with surgery at length. Surgery plans to remove NG tube and RADHA tube today. Surgery also plans to start clears. Surgery recommends to discontinue IV antibiotic therapy. Continue pain control. Continue incentive spirometer, abdominal binder and DVT prophylaxis. Continue ambulation. Possible discharge as early as tomorrow if tolerating diet but likely in the next 48 hours. Otherwise continue to monitor closely. Time Spent Managing Pts Care (In Minutes): 55
[2020-06-16] MEDS ORDERED: POTASSIUM CL SA 10 MEQ TAB PO ONE (14:00)
[2020-06-16] MEDS: HYDROCODONE/APAP 7.5/325 MG TAB PO PRN ×2 (15:10→20:53)
[2020-06-16] MEDS: ENOXAPARIN 40 MG/0.4 ML SQ SCH (17:09)
[2020-06-17] MEDS: HYDROMORPHONE HCL 1 MG/ML INJ IV PRN ×2 (00:50→20:42)
[2020-06-17] MEDS: NACHLORIDE 0.45% 1,000 ML with POTASSIUM CL 10 MEQ IV SCH ×6 (06:17→21:56)
[2020-06-17 06:30] LABS: Absolute Lymphocytes (CBC) 1.7 K/uL (0.7-4.9); Basophils % 0.5 % (0-1.3); Hematocrit 35.4 % (39.6-49.0); Lymphocytes % 16.8 % (15.3-44.8); MPV 9.1 fL (7.6-11.3); RBC Red Blood Cell Count 3.88 M/uL (4.33-5.43)
[2020-06-17 06:45] LABS: BUN Blood Urea Nitrogen 11 mg/dL (7-18); Bicarbonate 27 mmol/L (21-32); Glucose Level 88 mg/dL (74-106); Phosphorus 2.5 mg/dL (2.5-4.9); Potassium 3.3 mmol/L (3.5-5.1); Sodium Level 139 mmol/L (136-145)
[2020-06-17] MEDS: INSULIN -REGULAR HUMAN 50 UNIT/0.5 ML ML SQ SCH ×4 (07:30→20:41)
[2020-06-17] MEDS: PANTOPRAZOLE 40 MG INJ IVP SCH ×2 (08:27→20:40)
[2020-06-17] MEDS: NICOTINE 14 MG/PAT TD SCH (08:28)
[2020-06-17] MEDS: HYDROCODONE/APAP 7.5/325 MG TAB PO PRN ×3 (08:40→17:39)
[2020-06-17] MEDS ORDERED: POTASS/SODIUM PHOSPHATE 1 PKT POWD.PACK PO ONE (09:00)
[2020-06-17] MEDS ORDERED: POTASSIUM 25 MEQ EFFERV TAB PO ONE (09:00)
[2020-06-17] MEDS: POTASS/SODIUM PHOSPHATE 1 PKT POWD.PACK PO SCH ×2 (09:35→10:25)
--- NOTE | 2020-06-17 11:05 | P.PN ---
Subjective Date of Service: 06/17/20 Chief Complaint: perforated diverticulitis Subjective: Improving, Doing well Physical Examination - Vital Signs Temperature: 97.1 F Blood Pressure: 134/68 Pulse: 81 Respirations: 20 Pulse Ox (%): 99 Assessment & Plan Discharge Plan: Home Plan to discharge in: 72 Hours Physician Review Additional Text: Physical exam: Patient doing well postoperatively. NG tube in place. Heart: Regular rate and rhythm heart Lungs: Clear to auscultation Abdomen: Binder in place. Colostomy in place. Postsurgical changes noted. Postsurgical pain noted Extremities: Good range of motion to upper lower extremities. Impression: Perforated acute sigmoid colonic diverticulitis with small to moderate amount of enteral peritoneal free air and formation of 2 nearby gas and fluid containing collections measuring 6.3 cm and 7.3 cm mostly containing gas status post exploratory laparotomy, Coffman's procedure Prediabetes Plan: Patient continues to do well postoperatively. Patient tolerating clears. NG tube removed yesterday. Spoke with surgery at length. Surgery plans to revise colostomy. This will be done tomorrow. Keep the patient n.p.o. after midnight. Continue current plan of care. Continue incentive spirometer, abdominal binding and DVT prophylaxis. Encourage ambulation. We will check and make sure patient will be able to get colostomy supplies and teaching. Anticipate discharge likely in the next 48 to 72 hours post revision. I will turn the service over to the hospitalist team tomorrow. I will go over the plan of care with him. Time Spent Managing Pts Care (In Minutes): 55
[2020-06-17] MEDS: ENOXAPARIN 40 MG/0.4 ML SQ SCH (17:00)
[2020-06-18] MEDS: HYDROMORPHONE HCL 1 MG/ML INJ IV PRN ×4 (02:36→19:36)
[2020-06-18 06:28] LABS: Absolute Lymphocytes (CBC) 1.4 K/uL (0.7-4.9); Basophils % 0.4 % (0-1.3); Lymphocytes % 13.7 % (15.3-44.8); MPV 8.4 fL (7.6-11.3); RBC Red Blood Cell Count 3.86 M/uL (4.33-5.43)
[2020-06-18 06:34] LABS: BUN Blood Urea Nitrogen 6 mg/dL (7-18); Bicarbonate 30 mmol/L (21-32); Glucose Level 105 mg/dL (74-106); Magnesium 2.1 mg/dL (1.8-2.4); Phosphorus 3.4 mg/dL (2.5-4.9); Potassium 3.8 mmol/L (3.5-5.1); Sodium Level 141 mmol/L (136-145)
[2020-06-18] MEDS: INSULIN -REGULAR HUMAN 50 UNIT/0.5 ML ML SQ SCH ×4 (07:30→20:32)
[2020-06-18] MEDS: KCL 20 MEQ/100 mL IVPB 20 MEQ/100 ML BAG IV SCH ×2 (08:01→08:27)
[2020-06-18] MEDS: NICOTINE 14 MG/PAT TD SCH (08:02)
[2020-06-18] MEDS: PANTOPRAZOLE 40 MG INJ IVP SCH ×2 (08:02→20:39)
--- NOTE | 2020-06-18 08:29 | P.PN ---
Subjective Date of Service: 06/17/20 Chief Complaint: perforated diverticulitis Patient feels well, colostomy functional. Physical Examination - Vital Signs Temperature: 97.8 F Blood Pressure: 129/74 Pulse: 84 Respirations: 19 Pulse Ox (%): 97 - Physical Exam General: Alert, In no apparent distress, Cooperative Gastrointestinal: Soft and benign, Other (colostomy has retracted somewhat, and appears mildly ischemic, good output. ) Assessment And Plan - Current Problems (Diagnosis) (1) Perforation of sigmoid colon due to diverticulitis Current Visit: Yes Status: Acute Plan: 55 year old super morbid obese man s/p Exploratory laparotomy, Hartmanns procedure for perforated sigmoid diverticulitis - I have discussed return to OR for revision of colostomy as it appears ischemic and somewhat retracted, and while it is very functional, I have concern that it may have complication in the future and therefore I have recommended revision of colostomy in AM. - Risks, benefits, alternatives discussed, patient agrees to proceed. Physician Review Additional Text: Physical exam: Patient doing well postoperatively. NG tube in place. Heart: Regular rate and rhythm heart Lungs: Clear to auscultation Abdomen: Binder in place. Colostomy in place. Postsurgical changes noted. Postsurgical pain noted Extremities: Good range of motion to upper lower extremities. Impression: Perforated acute sigmoid colonic diverticulitis with small to moderate amount of enteral peritoneal free air and formation of 2 nearby gas and fluid containing collections measuring 6.3 cm and 7.3 cm mostly containing gas status post exploratory laparotomy, Coffman's procedure Prediabetes Plan: Patient continues to do well postoperatively. Patient tolerating clears. NG tube removed yesterday. Spoke with surgery at length. Surgery plans to revise colostomy. This will be done tomorrow. Keep the patient n.p.o. after midnight. Continue current plan of care. Continue incentive spirometer, abdominal binding and DVT prophylaxis. Encourage ambulation. We will check and make sure patient will be able to get colostomy supplies and teaching. Anticipate discharge likely in the next 48 to 72 hours post revision. I will turn the service over to the hospitalist team tomorrow. I will go over the plan of care with him.
[2020-06-18] MEDS ORDERED: NA CHLORIDE 0.9% 1,000 ML ONE ×3 (09:29→14:03)
[2020-06-18] MEDS ORDERED: FENTANYL CITR 250 MCG/5 ML ONE (10:31)
[2020-06-18] MEDS ORDERED: propofoL 200 MG/20 ML VIAL IV ONE (10:31)
[2020-06-18] MEDS ORDERED: LIDOCAINE 1% MPF 5 ML VIAL ONE (10:31)
[2020-06-18] MEDS ORDERED: ROCURONIUM 50 MG/5 ML VIAL IV ONE ×3 (10:31→12:30)
[2020-06-18] MEDS ORDERED: MIDAZOLAM HCL 2 MG/2 ML INJ ONE ×2 (10:31→13:50)
[2020-06-18] MEDS ORDERED: BUPIVACAINE 0.25% PF 30 ML VIAL ONE (10:52)
[2020-06-18] MEDS: PIPER/TAZO/NS 4.5gm 4.5 GM/100 ML BAG IV ONE ×2 (10:55→11:45)
[2020-06-18] MEDS ORDERED: EPHEDRINE SULF 50 MG/ML VIAL ONE ×2 (11:35→14:01)
[2020-06-18] MEDS ORDERED: NS 0.9% VIAL 10 ML ONE (11:35)
[2020-06-18] MEDS ORDERED: ONDANSETRON 4 MG/2 ML VIAL ONE (11:37)
[2020-06-18] MEDS ORDERED: KETOROLAC 30 MG/ML INJ ONE (11:37)
[2020-06-18] MEDS ORDERED: Phenylephrine HCl 10 MG/ML 1 ML VIAL ONE (11:43)
[2020-06-18] MEDS ORDERED: HETASTARCH/NACL (HESPAN) 500 ML IV ONE (12:39)
[2020-06-18] MEDS ORDERED: MORPHINE 10 MG/ML VIAL ONE (13:22)
[2020-06-18] MEDS ORDERED: GLYCOPYRROLATE 0.2 MG/ML SYR ONE (13:24)
[2020-06-18] MEDS ORDERED: SODIUM HYPOCHLORITE 0.25% 473 ML ONE (13:25)
--- NOTE | 2020-06-18 13:26 | P.OP ---
Preoperative diagnosis: Colostomy Ischemia Postoperative diagnosis: Colostomy Ischemia Primary procedure: Exploratory Laparotomy Secondary procedure: Revision of Colostomy Anesthesia: GETA Estimated blood loss: 50cc Specimen: colostomy tip Findings: ischemia to tip of colostomy Complications: None Drain(s): Nasogastric, Urinary catheter Transferred to: Recovery Room Condition: Good
[2020-06-18] MEDS ORDERED: NEOSTIGMINE 1 MG/ML -5 ML ONE (13:39)
[2020-06-18] MEDS: HYDROMORPHONE HCL 1 MG/ML INJ ONE ×4 (13:54→14:20)
[2020-06-18] MEDS ORDERED: PROMETHAZINE INJ 25 MG/ML AMP ONE (14:10)
[2020-06-18] MEDS ORDERED: SUCCINYLCHOLINE 20 MG/ML (10 ML) IV ONE (14:24)
--- NOTE | 2020-06-18 15:05 | OP ---
Date of Procedure: 06/18/2020 Surgeon: Brandt Rush MD, Preoperative Diagnosis: Colostomy ischemia. Postoperative Diagnosis: Colostomy ischemia. Procedures Performed: 1.Exploratory laparotomy. 2.Revision of colostomy. Anesthesia: General endotracheal. Estimated Blood Loss: 50 mL. Specimen: Colostomy tip. Findings: Ischemia to the tip of colostomy with slight retraction. Complications: None. Drains: Nasogastric and urinary catheter, both removed at the end of the procedure. Disposition: The patient was transferred to the recovery room in good condition. Procedure In Detail: After informed consent was obtained, the patient was brought to the operating r oom, prepped and draped in the usual sterile fashion after adequate anesthesia achieved. I oversewed the colostomy prior to prepping and draping with a silk running suture as there were ischemic change s at the tip. At this point, I snipped the sutures circumferentially around the colostomy. At this point, only about distal cm was ischemic apparently. I opened the abdominal incision by removing the previously placed michael, dissected down bluntly to the previous 0 loop PDS which was opened after locating and sniffing the suture. The area was opened at this point. Irrigated copiously until comp letely clear and then I proceeded to move the omentum superiorly to access the colostomy site. At th is point, I circumferentially dissected around the colostomy site and continued to mobilize the colon on the left colic gutter near the splenic flexure, which was very high. The patient has severe and significant intraabdominal adiposity making dissection of any kind complicated. The epiploic appenda ges were very large, pendulous, and because of his recent surgery and recent intraabdominal abscesses made dissection somewhat challenging. I then continued to mobilize the colon and opted to move the colostomy site as the previous colostomy site appeared somewhat distal as I felt that a proximal relo cation of the colostomy would be beneficial for a more tension free colostomy creation. At this poin t, I brought the previous colostomy, which had been sewn closed prior back into the abdomen. I then closed the colostomy site internally using a #1 Vicryl suture in a running fashion. I then placed a gauze soaked in Betadine into the colostomy subcutaneous tissues and continued the mobilization of th e colon and found a better location superior to the previous colostomy site. I left a good skin brid ge of approximately 2-3 cm to allow for placing of the wafer in the colostomy creation. At this poin t, I removed the Betadine-soaked gauze from the previous colostomy site, irrigated and cleansed out t he wound, and then closed the skin with interrupted michael. At this point, I opted to open a small disk superior as described for the new colostomy site in the left upper quadrant. At this point, I g rasped the skin with a Terence clamp and using a 15 blade, dissected through the skin and subcutaneous tissues. I then dissected down to the subcutaneous fat removing the fat between this colostomy exit site and the anterior rectus sheath. This was removed and sent off the back table. I then opened t he fascia of the anterior rectus sheath using electrocautery in a cruciate type incision. I then spr ead the muscles of the rectus muscle laterally using hemostats and grasped the peritoneum at this poi nt protecting the tissues underneath by placing my hand underneath. I then opened this plane using e lectrocautery with a cruciate type incision once again, placed 3 fingers through the entire site to a llow for proper passage and I brought a Vivienne through and grasped the tip of the colostomy, brought it out ensuring that the tenia were not twisted or torqued. At this point, approximately 3 cm of th e tissue, I brought slightly more to for approximately 4 cm after mobilizing slightly more on the vas cular pedicle without taking any of the vascular structures. At this point, I removed the Grant an d allowed the colostomy to rest on the skin surface to ensure this was a tension free closure. I the n copiously irrigated the abdomen once again and suctioned out until completely dry. No hemostatic m aneuvers were required. I then brought the omentum back in the normal anatomic position and once aga in irrigated and suctioned out the patient. At this point, I opted to close the patient's abdomen. At this point, I closed the abdomen using a running #1 looped PDS in a running fashion with good appo sition of the tissues after placing abdominal FISH into the abdomen. It was removed prior to closure . All counts were correct at this point. I then copiously irrigated the skin and subcutaneous tissu es multiple times until completely clear. I opted to leave the abdomen open and packed it with Dakin 0.25% and Kerlix into the subcutaneous position for ultimate placement of wound VAC in the future. At this point, I opted to mature the colostomy as the abdomen was closed and a dressing was placed on top. I then grasped, elevated the colostomy at this point, and snipped the residual ischemic tissue until I was down to good pink viable colon, removing approximately 1.5 to 2 cm of residual colon lorraine ving the colon towards the skin level and I rested it without any tension and retraction at this poin t. I then opted to secure the colostomy circumferentially around using a combination of 3-0 nylon stewart tures and 3-0 Vicryl sutures. I then digitized the tract and found it to be functional at this point through the fascia in a tension-free manner. At this point, sterile dressing placed over the top an d ostomy appliance applied. The patient tolerated the procedure well without evidence of complicatio n and transferred to PACU in good condition. All counts were correct at the end of the case. PRICILLA/GREY Voice ID: [id number] Report ID: [id number]
[2020-06-18] MEDS: NACHLORIDE 0.45% 1,000 ML with POTASSIUM CL 10 MEQ IV SCH ×2 (17:15)
[2020-06-18] MEDS: ENOXAPARIN 40 MG/0.4 ML SQ SCH (17:16)
[2020-06-18] MEDS: PIPER/TAZO/NS 3.375gm 3.375 GM/100 ML BAG IVPB SCH (17:16)
[2020-06-18] MEDS: HYDROCODONE/APAP 7.5/325 MG TAB PO PRN ×2 (17:17→20:42)
[2020-06-19] MEDS: HYDROMORPHONE HCL 1 MG/ML INJ IV PRN ×6 (00:05→21:19)
[2020-06-19] MEDS: PIPER/TAZO/NS 3.375gm 3.375 GM/100 ML BAG IVPB SCH ×3 (00:06→15:13)
[2020-06-19] MEDS: HYDROCODONE/APAP 10/325 TAB PO PRN ×5 (01:11→19:59)
[2020-06-19 05:31] LABS: Absolute Lymphocytes (CBC) 1.2 K/uL (0.7-4.9); Basophils % 0.4 % (0-1.3); Hematocrit 34.8 % (39.6-49.0); Lymphocytes % 5.2 % (15.3-44.8); MPV 8.8 fL (7.6-11.3); RBC Red Blood Cell Count 3.85 M/uL (4.33-5.43)
[2020-06-19 05:45] LABS: Magnesium 1.7 mg/dL (1.8-2.4); Phosphorus 3.3 mg/dL (2.5-4.9)
[2020-06-19 06:56] LABS: Blood Morphology Comment NOT SEEN (NOT SEEN); Platelet Estimate INCR
[2020-06-19] MEDS: INSULIN -REGULAR HUMAN 50 UNIT/0.5 ML ML SQ SCH ×4 (07:30→21:00)
[2020-06-19] MEDS: PANTOPRAZOLE 40 MG INJ IVP SCH ×2 (08:43→21:16)
[2020-06-19] MEDS: NICOTINE 14 MG/PAT TD SCH (08:44)
[2020-06-19] MEDS ORDERED: MAGNESIUM SULFATE 1 gm IVPB 1 GM/100 ML BAG IV ONE (09:00)
[2020-06-19] MEDS: NACHLORIDE 0.45% 1,000 ML with POTASSIUM CL 10 MEQ IV SCH ×4 (15:07→23:12)
[2020-06-19] MEDS: ENOXAPARIN 40 MG/0.4 ML SQ SCH (17:44)
[2020-06-19] MEDS: ENSURE CLEAR 200 ML CAN PO SCH (21:15)
[2020-06-20] MEDS: HYDROCODONE/APAP 10/325 TAB PO PRN ×5 (00:19→18:50)
[2020-06-20] MEDS: PIPER/TAZO/NS 3.375gm 3.375 GM/100 ML BAG IVPB SCH ×3 (00:20→16:05)
[2020-06-20] MEDS: HYDROMORPHONE HCL 1 MG/ML INJ IV PRN ×5 (01:30→20:56)
[2020-06-20] MEDS: NACHLORIDE 0.45% 1,000 ML with POTASSIUM CL 10 MEQ IV SCH ×2 (03:00)
[2020-06-20 05:54] LABS: Absolute Lymphocytes (CBC) 1.3 K/uL (0.7-4.9); Basophils % 0.3 % (0-1.3); Lymphocytes % 8.1 % (15.3-44.8); MPV 8.5 fL (7.6-11.3); RBC Red Blood Cell Count 3.57 M/uL (4.33-5.43)
[2020-06-20 06:18] LABS: ALT/SGPT 26 U/L (12-78); AST/SGOT 19 U/L (15-37); Albumin 1.8 g/dL (3.4-5.0); Alkaline Phosphatase 81 U/L (45-117); BUN Blood Urea Nitrogen 5 mg/dL (7-18); Bicarbonate 26 mmol/L (21-32); Bilirubin Total 0.6 mg/dL (0.2-1.0); Glucose Level 128 mg/dL (74-106); Magnesium 2.1 mg/dL (1.8-2.4); Phosphorus 2.4 mg/dL (2.5-4.9); Potassium 3.7 mmol/L (3.5-5.1); Protein, Total 6.2 g/dL (6.4-8.2); Sodium Level 140 mmol/L (136-145)
[2020-06-20] MEDS: INSULIN -REGULAR HUMAN 50 UNIT/0.5 ML ML SQ SCH ×4 (07:30→21:00)
--- NOTE | 2020-06-20 08:22 | P.PN ---
Subjective Date of Service: 06/19/20 Chief Complaint: perforated diverticulitis Patient feels well, colostomy pink, minimal clear output. Physical Examination - Vital Signs Temperature: 97.6 F Blood Pressure: 104/53 Pulse: 90 Respirations: 18 Pulse Ox (%): 95 - Physical Exam General: Alert, In no apparent distress, Oriented x3, Cooperative Respiratory: Clear to auscultation bilaterally Cardiovascular: Regular rate/rhythm Gastrointestinal: Other (soft, mild appropriate TTP, ND, colostomy pink and viable, minimal clear output, WVAC in place in midline wound) Assessment And Plan - Current Problems (Diagnosis) (1) Perforation of sigmoid colon due to diverticulitis Current Visit: Yes Status: Acute Plan: 55 year old super morbid obese man s/p Exploratory laparotomy, Hartmanns procedure for perforated sigmoid diverticulitis s/p revision of colostomy on 06/18/20 for ischemia to colostomy tip. - continue current pain regime - continue full liquid diet, await more bowel function - continue WVAC changes to midline wound every other day - ambulate with assist - weight loss regime reviewed in future - patient will need outpatient colonoscopy - continue medical management Physician Review Additional Text: Physical exam: Patient doing well postoperatively. NG tube in place. Heart: Regular rate and rhythm heart Lungs: Clear to auscultation Abdomen: Binder in place. Colostomy in place. Postsurgical changes noted. Postsurgical pain noted Extremities: Good range of motion to upper lower extremities. Impression: Perforated acute sigmoid colonic diverticulitis with small to moderate amount of enteral peritoneal free air and formation of 2 nearby gas and fluid containing collections measuring 6.3 cm and 7.3 cm mostly containing gas status post exploratory laparotomy, Coffman's procedure Prediabetes Plan: Patient continues to do well postoperatively. Patient tolerating clears. NG tube removed yesterday. Spoke with surgery at length. Surgery plans to revise colostomy. This will be done tomorrow. Keep the patient n.p.o. after midnight. Continue current plan of care. Continue incentive spirometer, abdominal binding and DVT prophylaxis. Encourage ambulation. We will check and make sure patient will be able to get colostomy supplies and teaching. Anticipate discharge likely in the next 48 to 72 hours post revision. I will turn the service over to the hospitalist team tomorrow. I will go over the plan of care with him.
[2020-06-20] MEDS: POTASS/SODIUM PHOSPHATE 1 PKT POWD.PACK PO SCH ×3 (08:44→10:15)
[2020-06-20] MEDS: PANTOPRAZOLE 40 MG INJ IVP SCH ×2 (08:45→20:56)
[2020-06-20] MEDS: NICOTINE 14 MG/PAT TD SCH (08:46)
[2020-06-20] MEDS: ENSURE CLEAR 200 ML CAN PO SCH ×2 (08:47→20:57)
[2020-06-20] MEDS ORDERED: POTASSIUM 25 MEQ EFFERV TAB PO ONE (09:00)
--- NOTE | 2020-06-20 11:09 | P.PN ---
Subjective Date of Service: 06/18/20 Patient is scheduled to the OR later today. Patient is going to have revision of his colostomy. Some the necrotic tissue was noted and this will need to be debrided. Will reassess after surgery. Medically stable for surgical intervention. Review of Systems 10-point ROS is otherwise unremarkable Physical Examination - Vital Signs Temperature: 97.6 F Blood Pressure: 104/53 Pulse: 90 Respirations: 18 Pulse Ox (%): 97 - Physical Exam General: Alert, In no apparent distress, Oriented x3, Obese Respiratory: Clear to auscultation bilaterally, Normal air movement Cardiovascular: Regular rate/rhythm, Normal S1 S2 Gastrointestinal: Normal bowel sounds, Soft and benign, Non-distended, Other (Patient with a colostomy) Musculoskeletal: No clubbing, No swelling, No tenderness Neurological: Sensation intact, Cranial nerves 3-12 intact - Studies Medications List Reviewed: Yes Assessment & Plan - Problems (Diagnosis) (1) Status post colostomy Current Visit: Yes Status: Acute (2) Perforation of sigmoid colon due to diverticulitis Current Visit: Yes Status: Acute (3) Leukocytosis Current Visit: Yes Status: Acute - Plan 1. Continue with IV hydration 2. Continue with IV antibiotics 3. Continue with pain control 4. NPO 5. General surgery consultation appreciated; 6. Serial H&H, and we will monitor CBC, BMP, LFTs and lipase along with electrolytes. 7. GI and DVT prophylaxis Discharge Plan: Home - Advance Directives Does patient have a Living Will: No Does patient have a Durable POA for Healthcare: No - Code Status/Comfort Care Code Status Assessed: Yes Code Status: Full Code Critical Care: No Time Spent Managing PTS Care (In Minutes): 35
--- NOTE | 2020-06-20 11:12 | P.PN ---
Date of Service: 06/19/20 Subjective Postop day 1. And patient is doing well. Patient denies any significant complaints. Patient still with some discomfort and we will continue with antibiotic therapy. Review of Systems 10-point ROS is otherwise unremarkable Physical Examination - Vital Signs Reviewed - Physical Exam General: Alert, In no apparent distress, Oriented x3, Obese Respiratory: Clear to auscultation bilaterally, Normal air movement Cardiovascular: Regular rate/rhythm, Normal S1 S2 Gastrointestinal: Normal bowel sounds, Soft and benign, Non-distended, Other (Patient with a colostomy) Musculoskeletal: No clubbing, No swelling, No tenderness Neurological: Sensation intact, Cranial nerves 3-12 intact - Studies Medications List Reviewed: Yes Assessment & Plan - Problems (Diagnosis) (1) Status post colostomy Current Visit: Yes Status: Acute (2) Perforation of sigmoid colon due to diverticulitis Current Visit: Yes Status: Acute (3) Leukocytosis Current Visit: Yes Status: Acute - Plan Continue with plan of care as mentioned below 1. Continue with gentle IV hydration 2. Continue with IV antibiotics 3. Continue with pain control 4. Started on clear liquid diet 5. General surgery consultation appreciated; 6. Continue monitoring colostomy and monitoring labs closely 7. GI and DVT prophylaxis Discharge Plan: Home
--- NOTE | 2020-06-20 11:13 | P.PN ---
Date of Service: 06/20/20 Subjective Postop day 2. Him patient continues to do well. Leukocytosis has resolved. Patient denies any other clinical complaints. Awaiting for clots me output to increase. Spoke with General surgery in anticipated discharge is over the next 24-48 hr. Review of Systems 10-point ROS is otherwise unremarkable Physical Examination - Vital Signs Reviewed - Physical Exam General: Alert, In no apparent distress, Oriented x3, Obese Respiratory: Clear to auscultation bilaterally, Normal air movement Cardiovascular: Regular rate/rhythm, Normal S1 S2 Gastrointestinal: Normal bowel sounds, Soft and benign, Non-distended, Other (Patient with a colostomy) Musculoskeletal: No clubbing, No swelling, No tenderness Neurological: Sensation intact, Cranial nerves 3-12 intact - Studies Medications List Reviewed: Yes Assessment & Plan - Problems (Diagnosis) (1) Status post colostomy Current Visit: Yes Status: Acute (2) Perforation of sigmoid colon due to diverticulitis Current Visit: Yes Status: Acute (3) Leukocytosis Current Visit: Yes Status: Acute - Plan Continue with plan of care as mentioned below 1. Continue with hydration but may Hep-Lock IV in the morning. 2. Change antibiotics to oral in a.m. 3. Continue with pain control 4. Advanced diet as tolerated 5. General surgery consultation appreciated; 6. Continue monitoring colostomy and monitoring labs closely 7. GI and DVT prophylaxis Discharge Plan: Home
[2020-06-20] MEDS: ENOXAPARIN 40 MG/0.4 ML SQ SCH (16:05)
[2020-06-21] MEDS: HYDROCODONE/APAP 10/325 TAB PO PRN ×4 (01:08→20:41)
[2020-06-21] MEDS: PIPER/TAZO/NS 3.375gm 3.375 GM/100 ML BAG IVPB SCH ×3 (01:52→14:44)
[2020-06-21] MEDS: NACHLORIDE 0.45% 1,000 ML with POTASSIUM CL 10 MEQ IV SCH ×4 (02:00→21:49)
[2020-06-21] MEDS: HYDROMORPHONE HCL 1 MG/ML INJ IV PRN ×4 (02:15→21:55)
[2020-06-21] MEDS: INSULIN -REGULAR HUMAN 50 UNIT/0.5 ML ML SQ SCH ×4 (07:30→20:51)
[2020-06-21 07:32] LABS: BUN Blood Urea Nitrogen 4 mg/dL (7-18); Bicarbonate 28 mmol/L (21-32); Glucose Level 113 mg/dL (74-106); Potassium 3.9 mmol/L (3.5-5.1); Sodium Level 141 mmol/L (136-145)
[2020-06-21 07:48] LABS: Absolute Lymphocytes (CBC) 1.1 K/uL (0.7-4.9); Basophils % 0.6 % (0-1.3); Hematocrit 31.4 % (39.6-49.0); Lymphocytes % 9.8 % (15.3-44.8); MPV 8.7 fL (7.6-11.3); RBC Red Blood Cell Count 3.36 M/uL (4.33-5.43)
[2020-06-21] MEDS: NICOTINE 14 MG/PAT TD SCH (08:12)
[2020-06-21] MEDS: PANTOPRAZOLE 40 MG INJ IVP SCH ×2 (08:58→20:41)
[2020-06-21] MEDS ORDERED: POTASSIUM 25 MEQ EFFERV TAB PO ONE (09:00)
[2020-06-21] MEDS: ENSURE CLEAR 200 ML CAN PO SCH ×2 (09:00→20:50)
[2020-06-21] MEDS: ENOXAPARIN 40 MG/0.4 ML SQ SCH (17:00)
[2020-06-22] MEDS: PIPER/TAZO/NS 3.375gm 3.375 GM/100 ML BAG IVPB SCH ×3 (00:49→17:00)
[2020-06-22] MEDS: HYDROCODONE/APAP 10/325 TAB PO PRN ×3 (00:59→17:51)
[2020-06-22] MEDS: NACHLORIDE 0.45% 1,000 ML with POTASSIUM CL 10 MEQ IV SCH ×2 (04:48)
[2020-06-22] MEDS: HYDROMORPHONE HCL 1 MG/ML INJ IV PRN ×2 (04:57→10:00)
[2020-06-22 05:41] LABS: Absolute Lymphocytes (CBC) 1.3 K/uL (0.7-4.9); Basophils % 0.9 % (0-1.3); Lymphocytes % 13.4 % (15.3-44.8); MPV 8.3 fL (7.6-11.3); RBC Red Blood Cell Count 3.23 M/uL (4.33-5.43)
[2020-06-22 05:53] LABS: BUN Blood Urea Nitrogen 4 mg/dL (7-18); Bicarbonate 28 mmol/L (21-32); Glucose Level 111 mg/dL (74-106); Magnesium 2.1 mg/dL (1.8-2.4); Sodium Level 139 mmol/L (136-145)
[2020-06-22] MEDS: INSULIN -REGULAR HUMAN 50 UNIT/0.5 ML ML SQ SCH ×3 (07:30→16:30)
[2020-06-22] MEDS: NICOTINE 14 MG/PAT TD SCH (09:00)
[2020-06-22] MEDS: PANTOPRAZOLE 40 MG INJ IVP SCH (09:00)
[2020-06-22] MEDS: ENSURE CLEAR 200 ML CAN PO SCH (09:00)
--- NOTE | 2020-06-22 09:17 | P.PN ---
Date of Service: 06/21/20 Subjective Postop day 3. Patient doing well with no new complaints. Continues to gradually improve Review of Systems 10-point ROS is otherwise unremarkable Physical Examination - Vital Signs Reviewed - Physical Exam General: Alert, In no apparent distress, Oriented x3, Obese Respiratory: Clear to auscultation bilaterally, Normal air movement Cardiovascular: Regular rate/rhythm, Normal S1 S2 Gastrointestinal: Normal bowel sounds, Soft and benign, Non-distended, Other (Patient with a colostomy) Musculoskeletal: No clubbing, No swelling, No tenderness Neurological: Sensation intact, cranial nerves 2-12 are intact Assessment & Plan - Problems (Diagnosis) (1) Status post colostomy Current Visit: Yes Status: Acute (2) Perforation of sigmoid colon due to diverticulitis Current Visit: Yes Status: Acute (3) Leukocytosis Current Visit: Yes Status: Acute - Plan Continue with plan of care as mentioned below 1. Hep-Lock IV 2. Change to oral antibiotic 3. Continue with pain control 4. Advanced diet as tolerated; as long as patient has colostomy is functioning properly can possibly be discharged 5. General surgery assistance & their recommendations are appreciated 6. Continue monitoring colostomy and monitoring labs closely 7. GI and DVT prophylaxis Discharge Plan: Home
--- NOTE | 2020-06-22 09:31 | P.DS ---
Discharge Date: 06/22/20 Disposition: ROUTINE DISCHARGE Discharge Condition: GOOD Reason for Admission: perforated diverticulitis Consultations: General surgeon - Problems (1) Status post colostomy Current Visit: Yes Status: Acute (2) Perforation of sigmoid colon due to diverticulitis Current Visit: Yes Status: Acute (3) Leukocytosis Current Visit: Yes Status: Acute Brief History of Present Illness: Mr. Angel joshi 55 yo M here today with 10/10 abdominal pain beginning after bending down to excelsior picker a heavy log. He said the pain has been excruciating and he has been unable to move since then. Pain radiates to his back and feels worse when he is lying on his back. Relief with pain medication and sitting upright. Reports night sweats, chills, bloating, nausea and vomiting. He smokes 1/2ppd. WBC 17.6. Alk Phos 162. CT scan suspicious for perforated diverticulitis. Hospital Course: Patient has done well during hospital stay. Patient is clinically doing much better. Vital Signs/Physical Exam: Temp Pulse Resp BP Pulse Ox 96.9 F 76 19 125/74 96 06/22/20 04:00 06/22/20 04:00 06/22/20 05:27 06/22/20 04:00 06/22/20 05:27 General: Alert, In no apparent distress, Oriented x3 Laboratory Data at Discharge: WBC 9.80 K/uL (4.3-10.9) D 06/22/20 05:22 Hgb 10.0 g/dL (13.6-17.9) L 06/22/20 05:22 Hct 30.0 % (39.6-49.0) L 06/22/20 05:22 Plt Count 481 K/uL (152-406) H 06/22/20 05:22 Sodium 139 mmol/L (136-145) 06/22/20 05:22 Potassium 4.0 mmol/L (3.5-5.1) 06/22/20 05:22 BUN 4 mg/dL (7-18) L 06/22/20 05:22 Creatinine 0.80 mg/dL (0.55-1.3) 06/22/20 05:22 Glucose 111 mg/dL (74-106) H 06/22/20 05:22 Phosphorus 2.4 mg/dL (2.5-4.9) L 06/20/20 05:41 Magnesium 2.1 mg/dL (1.8-2.4) 06/22/20 05:22 Total Bilirubin 0.6 mg/dL (0.2-1.0) 06/20/20 05:41 AST 19 U/L (15-37) 06/20/20 05:41 ALT 26 U/L (12-78) 06/20/20 05:41 Alkaline Phosphatase 81 U/L (45-117) 06/20/20 05:41 Triglycerides 171 mg/dL (<150) H 06/12/20 04:03 Cholesterol 121 mg/dL (<200) 06/12/20 04:03 HDL Cholesterol 10 mg/dL (40-60) L 06/12/20 04:03 Cholesterol/HDL Ratio 12.10 06/12/20 04:03 Lipase 119 U/L (73-393) 06/10/20 22:00 Home Medications: Methadone HCl 40 mg PO DAILY 06/11/20 Multivitamin [Multiple Vitamins] 1 tab PO DAILY 06/11/20 Ensure Clear 237 ml PO BID #60 can 06/22/20 levoFLOXacin [Levaquin] 500 mg PO DAILY #7 tab 06/22/20 metroNIDAZOLE [Flagyl] 500 mg PO Q8H #20 tablet 06/22/20 New Medications: Ensure Clear 237 ml PO BID #60 can metroNIDAZOLE [Flagyl] 500 mg PO Q8H #20 tablet levoFLOXacin [Levaquin] 500 mg PO DAILY #7 tab Physician Discharge Instructions: PROBLEM: Perforated Diverticulitis GOAL: Clear understanding of disease process INSTRUCTIONS: Diet: Soft diet Activity: Fall precautions If you have any questions regarding your stay call [phone] If your symptoms worsen call 911 or go to the ED. OK TO DC IV AND DC HOME FOLLOW-UP WITH PRIMARY CARE PROVIDER IN 1-2 WEEKS FOLLOW-UP WITH SURGERY IN 1-2 WEEKS RETURN TO THE ER IF symptoms worsen CALL or TEXT DR. PATEL AT [phone] IF ANY QUESTIONS REGARDING HOSPITAL STAY. PLEASE CALL THE FLOOR AT [phone] IF ANY MEDICATION OR NURSING QUESTIONS. Diet: Soft diet Activity: Fall precautions Followup: Brandt Rush MD [ACTIVE - CAN ADMIT] - OOT,OOT [Primary Care Provider] - Time spent managing pt's care (in minutes): 35
[2020-06-22] MEDS: ENOXAPARIN 40 MG/0.4 ML SQ SCH (17:00)
[2020-06-22 17:39] VITALS: O2SAT 96
[2020-06-22 20:40] VITALS: BP 133/70; TEMP 98.5
[2020-06-22] MEDS ORDERED: SODIUM HYPOCHLORITE 0.25% 473 ML TOP SCH (21:00)
== END 2020-06-22 20:15 | disposition home health service (06) | DRG 346 ==
LOC: ER 15:06 → ERHOLD 06-11 00:52 → UNDOADMIN 06-11 00:52 → ERHOLD 06-11 01:15 → 2ND 06-11 19:59
PROVIDERS: ADMIT Family Medicine; ATTEND Hospitalist
PROC: 0DSN0ZZ Reposition Sigmoid Colon, Open Approach (ICD-10-PCS; principal; 2020-06-12 14:30)
PROC: 0DSN0ZZ Reposition Sigmoid Colon, Open Approach (ICD-10-PCS; 2020-06-18)
DX: K57.20 Diverticulitis of large intestine with perforation and abscess without bleeding (principal); G89.29 Other chronic pain; F17.210 Nicotine dependence, cigarettes, uncomplicated; D72.829 Elevated white blood cell count, unspecified; R73.03 Prediabetes; E66.01 Morbid (severe) obesity due to excess calories; Z68.35 Body mass index [BMI] 35.0-35.9, adult; Z79.899 Other long term (current) drug therapy; Z20.822 Contact with and (suspected) exposure to COVID-19
CPT/HCPCS: 36415; 74177; 80048; 80053; 80061; 80076; 81003; 81015; 82947; 83036; 83605; 83690; 83735; 84100; 84132; 84145; 84439; 84443; 85025; 93005; 94010; 94760; 96361; 96365; 96366; 96375; 97110; 97116; 97161; 97164; 97530; 99251; 99285; C9113; J0330; J1170; J1650; J2250; J2270; J2370; J2405; J2543; J2550; J2704; J2710; J3010; J3475; J3480; J7030; J7050; J7120; Q9967; U0003

== ENCOUNTER 2020-07-13 10:25 | Emergency (ER) | payer OTHER ==
[2020-07-13 11:51] LABS: Basophils % 0.8 % (0-1.3); Hematocrit 38.1 % (39.6-49.0); Lymphocytes % 15.5 % (15.3-44.8); MPV 7.8 fL (7.6-11.3); RBC Red Blood Cell Count 4.07 M/uL (4.33-5.43)
[2020-07-13] MEDS ORDERED: FENTANYL CITR 100 MCG/2 ML ONE ×2 (12:02→14:07)
[2020-07-13 12:03] LABS: Albumin 3.5 g/dL (3.4-5.0); Bilirubin Direct 0.2 mg/dL (0-0.2); Bilirubin Total 0.5 mg/dL (0.2-1.0); Potassium 3.8 mmol/L (3.5-5.1); Protein, Total 8.1 g/dL (6.4-8.2)
[2020-07-13] MEDS ORDERED: ONDANSETRON 4 MG/2 ML VIAL ONE (12:03)
--- NOTE | 2020-07-13 13:15 | RAD REPORT ---
EXAM DESCRIPTION: CT - Abdomen Pelvis W Contrast - 07/13/2020 12:53 pm CLINICAL HISTORY: Abdominal pain COMPARISON: May 2020 TECHNIQUE: Computed axial tomography of the abdomen pelvis was obtained. 100 cc Isovue-300 was admin istered intravenously. Oral contrast was not requested which limits evaluation of bowel. All CT scans are performed using dose optimization technique as appropriate and may include automated exposure control or mA/KV adjustment according to patient size. FINDINGS: The liver, spleen, pancreas, adrenal and kidneys appear unremarkable. Left lower quadrant colostomy. Postsurgical changes involve the left colon. 2 centimeter fluid collection adjacent to the left lateral abdominal wall lower abdomen. It does not contain air No free air. Normal appendix. Small inguinal hernias contain fat IMPRESSION: Left lower quadrant colostomy. Postsurgical changes involve the left: 2 centimeter fluid collection lateral left lower quadrant may represent a small hematoma or small abs cess.
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
[2020-07-13 14:07] VITALS: TEMP 99.5
[2020-07-13 14:09] VITALS: O2SAT 96
[2020-07-13 14:11] VITALS: BP 121/89
== END 2020-07-13 13:57 | disposition home or self-care (01) ==
LOC: ER 10:25
DX: S31.604A Unspecified open wound of abdominal wall, left lower quadrant with penetration into peritoneal cavity, initial encounter (principal); Z98.890 Other specified postprocedural states; Z93.3 Colostomy status
CPT/HCPCS: 85025; 80048; 36415; 80076; 83690; 74177; 96375; 96374; 99284; Q9967; J3010 ×2; J2405

== ENCOUNTER 2020-07-16 10:14 | Inpatient (IN) | payer OTHER ==
[2020-07-16 11:27] LABS: Absolute Lymphocytes (CBC) 1.2 K/uL (0.7-4.9); Basophils % 1.1 % (0-1.3); Hematocrit 41.1 % (39.6-49.0); Lymphocytes % 19.9 % (15.3-44.8); MPV 8.3 fL (7.6-11.3); RBC Red Blood Cell Count 4.38 M/uL (4.33-5.43)
--- NOTE | 2020-07-16 11:33 | RAD REPORT ---
EXAM DESCRIPTION: CT - Abdomen Pelvis W Contrast - 07/16/2020 11:18 am CLINICAL HISTORY: Abdominal pain COMPARISON: July 13, 2020 TECHNIQUE: Computed axial tomography of the abdomen pelvis was obtained. 100 cc Isovue-300 was admin istered intravenously. Oral contrast was not requested which limits evaluation of bowel. All CT scans are performed using dose optimization technique as appropriate and may include automated exposure control or mA/KV adjustment according to patient size. FINDINGS: The liver, spleen, pancreas, adrenal and kidneys appear unremarkable. Left lower quadrant colostomy. Postsurgical changes involve the left colon. 2 centimeter fluid collection adjacent to the left lateral abdominal wall lower abdomen. It does not contain air Mildly dilated loops of jejunum. Ileum normal caliber. No free air. Normal appendix. Small inguinal hernias contain fat IMPRESSION: Left lower quadrant colostomy. Mildly dilated loops of jejunum probably an ileus. An early partial small bowel obstruction could als o have this appearance but is probably less likely. If patient's symptoms persist followup abdominal plain film series would be recommended 2 centimeter fluid collection within the lateral left lower abdomen unchanged
[2020-07-16 11:35] LABS: Bilirubin Direct 0.2 mg/dL (0-0.2); Bilirubin Total 0.5 mg/dL (0.2-1.0); Potassium 3.5 mmol/L (3.5-5.1); Protein, Total 8.5 g/dL (6.4-8.2)
[2020-07-16] MEDS ORDERED: NA CHLORIDE 0.9% 1,000 ML ONE (11:44)
[2020-07-16] MEDS ORDERED: MORPHINE 4 MG/ML SYR ONE (11:44)
[2020-07-16] MEDS ORDERED: ONDANSETRON 4 MG/2 ML VIAL ONE (11:44)
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
--- NOTE | 2020-07-16 16:26 | P.HP ---
Certification for Inpatient Patient admitted to: Observation With expected LOS: <2 Midnights Patient will require the following post-hospital care: None Practitioner: I am a practitioner with admitting privileges, knowledge of patient current condition, hospital course, and medical plan of care. Services: Services provided to patient in accordance with Admission requirements found in Title 42 Section 412.3 of the Code of Federal Regulations <AlexandersonamAleksanderfredrick Rollins - Last Filed: 07/16/20 19:13> Patient History Date of Service: 07/16/20 Reason for admission: Abdominal Pain History of Present Illness: Patient is a 55-year-old male with a past medical history significant for nicotine dependence, chronic knee pain, Status post colectomy and colostomy bag who presents with complaint of this abdominal pain onset yesterday. Patient rated pain as 10/10 and described the pain as stabbing in quality. Patient reports associated signs and symptoms of nausea, vomiting and generalized weakness. Patient denies any other signs and symptoms. Symptoms are aggravated or relieved by nothing. Patient decided to present to the hospital due to worsening symptoms. - Past Medical/Surgical History Diabetic: No -: Chronic Knee Pain -: Knee Surgery -: Ankle Surgery - Family History Mother -: Heart disease Father -: Heart disease - Social History Smoking Status: Current every day smoker Smoking therapy provided: Yes Patient receptive to therapy: Yes Alcohol use: No CD- Drugs: No Caffeine use: No Place of Residence: Home <AlexandersonamAleksanderfredrick Rollins - Last Filed: 07/16/20 19:13> Date of Service: 07/16/20 <Carola Berger - Last Filed: 07/23/20 04:57> Allergies No Known Allergies Allergy (Verified 07/16/20 22:24) Home Medications: Hydrocodone 10/APAP 325 [[place] 10/325] 1 tab PO Q6H PRN #30 tab 07/18/20 Levofloxacin [Levaquin] 500 mg PO DAILY #7 tablet 07/18/20 metroNIDAZOLE [Flagyl] 500 mg PO Q8H #21 tablet 07/18/20 Review of Systems General: Weakness Eyes: Unremarkable ENT: Unremarkable Respiratory: Unremarkable Cardiovascular: Unremarkable Gastrointestinal: Nausea, Vomiting, Abdominal Pain Genitourinary: Unremarkable Musculoskeletal: Unremarkable Integumentary: Unremarkable Neurological: Unremarkable <David Crockett E - Last Filed: 07/16/20 19:13> Physical Examination - Physical Exam General: Alert, In no apparent distress, Oriented x3 HEENT: Atraumatic, PERRLA, Mucous membr. moist/pink, EOMI, Sclerae nonicteric Neck: Supple, 2+ carotid pulse no bruit, No LAD, Without JVD or thyroid abnormality Respiratory: Clear to auscultation bilaterally, Normal air movement Cardiovascular: No edema, Regular rate/rhythm, Normal S1 S2 Capillary refill: Brisk Gastrointestinal: Normal bowel sounds, No tenderness Musculoskeletal: No tenderness Integumentary: No rashes Neurological: Normal gait, Normal speech, Normal strength at 5/5 x4 extr, Normal tone, Normal affect Lymphatics: No axilla or inguinal lymphadenopathy - Studies Laboratory Data (last 24 hrs) 07/16/20 11:08: WBC 6.00, Hgb 13.5 L, Hct 41.1, Plt Count 259 07/16/20 11:08: Sodium 140, Potassium 3.5, BUN 4 L, Creatinine 1.07, Glucose 121 H, Total Bilirubin 0.5, AST 22, ALT 20, Alkaline Phosphatase 94, Lipase 120 <David Crockett E - Last Filed: 07/16/20 19:13> Assessment and Plan - Plan --SBO. As noted on CT imaging. Surgeon consulted. Will keep patient NPO. Continue IV hydration. Will await further recommendations from surgeon. --Abdominal pain. Likely secondary to SBO Status post colectomy with colostomy bag. Wound care per protocol. Surgeon on board. Further management per surgeon. --Acute pain\Chronic Knee pain . Will manage pain with current pain medication regimen. --Nausea and vomiting. Antiemetics on board. --Nicotine dependence. Patient placed on nicotine patch and counseled on tobacco cessation. --DVT prophylaxis with SCDs. Discharge Plan: Home Plan to discharge in: 48 Hours - Advance Directives Does patient have a Living Will: No Does patient have a Durable POA for Healthcare: No - Code Status/Comfort Care Code Status Assessed: Yes Code Status: Full Code Critical Care: No <David Crockett - Last Filed: 07/16/20 19:13> Date of Service: 07/16/20 Subjective: Patient is clinically doing well. Patient's pain is better controlled. Patient's symptoms are improving. Will get General surgery consultation to assistance in patient's care as well. Physical Examination Vitals: Afebrile vital signs are stable Physical exam : Cardiovascular: Regular rate rhythm no murmurs Lungs: Clear bilaterally Abdomen: Patient with colostomy bag intact: Wound midline is clean dry if and good healing tissue Extremities: No clubbing no cyanosis and no edema Diagnostic data has been reviewed ASST: 1. Abdominal pain 2. History of abdominal wound and colostomy placement PLAN: 1. Continue with current plan of care 2. Wound care 3. Pain control 4. Advanced diet as tolerated 5. GI and DVT prophylaxis <Carola Berger - Last Filed: 07/23/20 04:57>
[2020-07-16] MEDS ORDERED: ALBUTEROL 2.5 MG/3 ML NEB SOL NEB PRN (18:46)
[2020-07-16] MEDS ORDERED: ACETAMINOPHEN 650MG/RECT SUPP PR PRN (18:46)
[2020-07-16] MEDS: D5 0.9 NS 1,000 ML IV SCH (19:21)
[2020-07-16] MEDS: MORPHINE 4 MG/ML SYR IV PRN (21:52)
[2020-07-17 00:53] LABS: Urine Appearance CLEAR (Clear); Urine Bilirubin NEGATIVE (Negative); Urine Blood NEGATIVE (Negative); Urine Color DK YELLOW (Yellow); Urine Glucose NEGATIVE (Negative); Urine Protein NEGATIVE (Negative); Urine Specific Gravity 1.025 (1.005-1.030); Urine Urobilinogen 0.2 mg/dL (0.2-1.0)
[2020-07-17 01:02] LABS: Urine Microscopic Reflex NO UMIC
[2020-07-17] MEDS: ONDANSETRON 4 MG (ODT) TAB PO PRN (01:45)
[2020-07-17 04:30] LABS: Absolute Lymphocytes (CBC) 1.4 K/uL (0.7-4.9); Basophils % 0.8 % (0-1.3); Hematocrit 36.5 % (39.6-49.0); Lymphocytes % 25.2 % (15.3-44.8); MPV 8.2 fL (7.6-11.3); RBC Red Blood Cell Count 3.87 M/uL (4.33-5.43)
[2020-07-17] MEDS: MORPHINE 4 MG/ML SYR IV PRN ×3 (04:39→17:43)
[2020-07-17 04:44] LABS: Magnesium 1.9 mg/dL (1.8-2.4); Potassium 4.1 mmol/L (3.5-5.1)
[2020-07-17] MEDS: D5 0.9 NS 1,000 ML IV SCH ×2 (09:19→21:26)
[2020-07-17] MEDS: HYDROCODONE/APAP 5/325 MG TAB PO PRN ×2 (14:49→20:45)
[2020-07-18] MEDS: D5 0.9 NS 1,000 ML IV SCH ×2 (00:57→10:46)
[2020-07-18 05:30] VITALS: BMI 40.5
[2020-07-18] MEDS: ONDANSETRON 4 MG (ODT) TAB PO PRN (07:29)
[2020-07-18] MEDS ORDERED: SODIUM HYPOCHLORITE 0.5% 473 ML TOP PRN (07:50)
[2020-07-18] MEDS ORDERED: HYDROCODONE/APAP 5/325 MG TAB PO PRN (08:14)
--- NOTE | 2020-07-18 08:14 | P.PN ---
Subjective Date of Service: 07/18/20 Chief Complaint: Abdominal Pain Subjective: Improving (Patient started on clear liquids, notes spillage of full colostomy bag over abdomen. large amount of gas and stool in bag, no emesis.) Physical Examination - Vital Signs Temperature: 97.5 F Blood Pressure: 119/68 Pulse: 85 Respirations: 18 Pulse Ox (%): 99 - Physical Exam General: Alert, In no apparent distress, Cooperative Respiratory: Clear to auscultation bilaterally, Normal air movement Cardiovascular: Regular rate/rhythm Gastrointestinal: Soft and benign, Non-distended, No ascites, No tenderness, No masses, No rebound, No guarding, Other (Midline wound is clean and granulating well, colostomy appliance improperly applied, wound below colostomy contaminated by improper colostomy application, no peritonitis, no guarding.) Assessment And Plan - Current Problems (Diagnosis) (1) Enteritis Current Visit: Yes Status: Acute Plan: - full liquid diet - continue IV hydration - continue antibiotic coverage - wean soon - ambulate with assist - incentive spirometry - continue medical management - LTAC eval vs [facility]
--- NOTE | 2020-07-18 09:20 | CON ---
Date of Consultation: 07/17/2020 Brief History Of Present Illness: The patient is a 55-year-old male known to me from previous admiss ion where he came to the hospital with perforated sigmoid diverticulitis, was taken to the operating room for a Meenu's procedure with colostomy creation. He had a revision of his colostomy during t he same admission and has been discharged subsequently. He had been doing well at home with normal b owel function. He is tolerating diet and ongoing wound care for midline and infra-colostomy wound. He had been noncompliant with his wound care, but home health was ultimately arranged to help with [place] wound care. He had some issues with respect to the colostomy and that he had limited understandin g on how to take care of this colostomy and that made it challenging to keep his wounds clean. He pr esents with approximately 2 to 3 days history of gross global abdominal pain with nausea and vomiting and some weakness and fatigue. He came to the hospital with the above-stated complaints. Past Medical History: Significant for nicotine dependence, chronic knee pain. Past Surgical History: Colostomy creation, colostomy revision. Family History: Significant for heart disease in his mother and father. Home Medications: Include methadone, multivitamin, Ensure, Levaquin, Flagyl. Allergies: NO KNOWN DRUG ALLERGIES. Social History: He currently smokes everyday, approximately a pack per day. He smokes marijuana rec reationally. Denies any other recreational drug use. Denies alcohol usage. Review of Systems: Ten-point review of systems other than HPI, denies. Physical Examination: Vital Signs: At the time of my examination, his blood pressure of 131/86, heart rate was 99, respira tory rate 18, temperature 97.6, SpO2 98% on room air. General: He is awake, alert, and oriented. Psychiatric: Appropriate. Conversive. HEENT: Normocephalic. Sclerae anicteric. Mucous membranes are moist. Oropharynx clear. Neck: Supple without JVD. Chest: Normal expansion and excursion. Cardiovascular: Regular rate and rhythm. Pulmonary: Clear to auscultation bilaterally. Abdomen: Soft with global mild tenderness to palpation. No rebound or guarding. No focal peritonit is. His midline surgical wound is healing quite well and granulating well. His colostomy is functio nal, pink, viable with stool in the bag and gas. The wound below his colostomy is clean and dry at t his point. Laboratory Data: He had a laboratory exam, which revealed a white blood cell count of 5.5, hemoglobi n 12.2, hematocrit 36.4, platelet count was 228. His sodium 143, potassium 4.1, chloride 111, carbon dioxide 24, BUN 3, creatinine 0.9, glucose was 114. His lipase is 120 on admission. His urinalysis was negative on admission. He had imaging performed as well, which included a CT of the abdomen and pelvis on 07/16, which is officially read as left lower quadrant colostomy; mildly dilated loops of jejunum, probably an ileus; an early partial small bowel obstruction could also have this appearance, but is probably less likely; 2 cm fluid collection within the left lateral lower abdomen is unchange d. Assessment And Plan: This is a 55-year-old male, who comes in with signs of ileus versus enteritis. 1.IV fluid hydration. 2.Antibiotic coverage. 3.Serial abdominal exams. 4.Continue ongoing wound care. 5.The patient may benefit from LTAC/care home facility for his ongoing wound care and limited understanding. As such, I recommend continue serial exams and treatment as above, and continue medic al management per primary team. I explained the risks, benefits, and alternatives of the above state d plan. The patient agrees to proceed as indicated. Thank you for this interesting consult. PRICILLA/GREY Voice ID: [id number] Report ID: [id number]
[2020-07-18 10:09] VITALS: O2SAT 95
[2020-07-18] MEDS ORDERED: MORPHINE 4 MG/ML SYR IV ONE (14:25)
[2020-07-18 14:47] VITALS: BP 140/82; TEMP 98.3
--- NOTE | 2020-07-23 04:55 | P.DS ---
Discharge Date: 07/18/20 Disposition: ROUTINE DISCHARGE Discharge Condition: GOOD Reason for Admission: Abdominal Pain Consultations: General surgeon Brief History of Present Illness: Patient is a 55-year-old male with a past medical history significant for nicotine dependence, chronic knee pain, Status post colectomy and colostomy bag who presents with complaint of this abdominal pain onset yesterday. Patient rated pain as 10/10 and described the pain as stabbing in quality. Patient reports associated signs and symptoms of nausea, vomiting and generalized weakness. Patient denies any other signs and symptoms. Symptoms are aggravated or relieved by nothing. Patient decided to present to the hospital due to worsening symptoms. Hospital Course: Patient has done well during hospital stay. Clinically, patient's pain is resolved. Patient is tolerating diet. Patient has got wound care. Patient be discharged with outpatient follow with General surgery. Return to the emergency room if symptoms worsen. Vital Signs/Physical Exam: Temp Pulse Resp BP Pulse Ox 98.3 F 75 18 140/82 99 07/18/20 14:00 07/18/20 14:00 07/18/20 15:14 07/18/20 14:00 07/18/20 15:14 General: Alert, In no apparent distress, Oriented x3 Laboratory Data at Discharge: WBC 5.50 K/uL (4.3-10.9) 07/17/20 03:51 Hgb 12.2 g/dL (13.6-17.9) L 07/17/20 03:51 Hct 36.5 % (39.6-49.0) L 07/17/20 03:51 Plt Count 228 K/uL (152-406) 07/17/20 03:51 Sodium 143 mmol/L (136-145) 07/17/20 03:51 Potassium 4.1 mmol/L (3.5-5.1) 07/17/20 03:51 BUN 3 mg/dL (7-18) L 07/17/20 03:51 Creatinine 0.90 mg/dL (0.55-1.3) 07/17/20 03:51 Glucose 114 mg/dL (74-106) H 07/17/20 03:51 Magnesium 1.9 mg/dL (1.8-2.4) 07/17/20 03:51 Total Bilirubin 0.5 mg/dL (0.2-1.0) 07/16/20 11:08 AST 22 U/L (15-37) 07/16/20 11:08 ALT 20 U/L (12-78) 07/16/20 11:08 Alkaline Phosphatase 94 U/L (45-117) 07/16/20 11:08 Triglycerides 113 mg/dL (<150) 07/17/20 03:51 Cholesterol 134 mg/dL (<200) 07/17/20 03:51 HDL Cholesterol 39 mg/dL (40-60) L 07/17/20 03:51 Cholesterol/HDL Ratio 3.44 07/17/20 03:51 Lipase 120 U/L (73-393) 07/16/20 11:08 Home Medications: Hydrocodone 10/APAP 325 [[place] 10/325] 1 tab PO Q6H PRN #30 tab 07/18/20 Levofloxacin [Levaquin] 500 mg PO DAILY #7 tablet 07/18/20 metroNIDAZOLE [Flagyl] 500 mg PO Q8H #21 tablet 07/18/20 New Medications: metroNIDAZOLE [Flagyl] 500 mg PO Q8H #21 tablet Levofloxacin [Levaquin] 500 mg PO DAILY #7 tablet Hydrocodone 10/APAP 325 [[place] 10/325] 1 tab PO Q6H PRN #30 tab PRN Reason: Pain Physician Discharge Instructions: OK TO DC IV AND DC HOME FOLLOW-UP WITH PRIMARY CARE PROVIDER IN 1-2 WEEKS FOLLOW-UP WITH General surgery, Dr. Rush, IN 1-2 WEEKS RETURN TO THE ER IF symptoms worsen CALL or TEXT DR. PATEL AT [phone] IF ANY QUESTIONS REGARDING HOSPITAL STAY. PLEASE CALL THE FLOOR AT [phone] IF ANY MEDICATION OR NURSING QUESTIONS. Diet: Regular Activity: Fall precautions Followup: Brandt Rush MD [ACTIVE - CAN ADMIT] - Chantel Lira FNPC [Primary Care Provider] - Time spent managing pt's care (in minutes): 35
--- NOTE | 2020-07-23 04:59 | P.PN ---
Date of Service: 07/17/20 Subjective: Patient continues to improve with no new complaints. Appreciate General surgery input. Patient will get started on a clear liquid diet and if patient tolerates a then anticipate discharge in the next 24-48 hr. Physical Examination Vitals: Afebrile vital signs are stable Physical exam : Cardiovascular: Regular rate rhythm no murmurs Lungs: Clear bilaterally Abdomen: Patient with colostomy bag intact: Wound midline is clean dry if and good healing tissue Extremities: No clubbing no cyanosis and no edema Diagnostic data has been reviewed ASST: 1. Abdominal pain 2. History of abdominal wound and colostomy placement 3. Osteoarthritis PLAN: 1. Clear liquid diet and we will advances tolerated 2. Wound care; wound healing Center will be consulted 3. Pain control 4. Out of bed and ambulate 5. GI and DVT prophylaxis
== END 2020-07-18 16:27 | disposition home health service (06) | DRG 390 ==
LOC: ER 10:14 → ERHOLD 14:20 → 2ND 17:37
PROVIDERS: ADMIT Hospitalist; ATTEND Hospitalist
DX: K56.609 Unspecified intestinal obstruction, unspecified as to partial versus complete obstruction (principal); G89.29 Other chronic pain; M25.569 Pain in unspecified knee; F17.210 Nicotine dependence, cigarettes, uncomplicated; M19.90 Unspecified osteoarthritis, unspecified site; K52.9 Noninfective gastroenteritis and colitis, unspecified; Z93.3 Colostomy status; Z91.19 Patient's noncompliance with other medical treatment and regimen; Z79.899 Other long term (current) drug therapy; Z20.822 Contact with and (suspected) exposure to COVID-19
CPT/HCPCS: 36415; 74177; 80048; 80061; 80076; 81003; 83690; 83735; 85025; 96374; 96375; 99285; J2405; J7030; J7042; Q9967; U0003

== ENCOUNTER 2020-08-12 12:22 | Emergency (ER) | payer OTHER ==
[2020-08-12] MEDS ORDERED: MORPHINE 4 MG/ML SYR ONE ×2 (13:25→13:51)
[2020-08-12] MEDS ORDERED: NA CHLORIDE 0.9% 1,000 ML ONE ×2 (13:25→13:51)
[2020-08-12] MEDS ORDERED: NA CHLORIDE 0.9% 500 ML ONE ×2 (13:25→13:51)
[2020-08-12] MEDS ORDERED: ONDANSETRON 4 MG/2 ML VIAL ONE ×2 (13:25→13:51)
[2020-08-12 14:12] LABS: Urine Blood Trace-intact (Negative); Urine Glucose Negative (Negative); Urine Protein Negative (Negative)
[2020-08-12 14:57] LABS: Absolute Lymphocytes (CBC) 1.2 K/uL (0.7-4.9); Basophils % 0.9 % (0-1.3); Hematocrit 40.9 % (39.6-49.0); Lymphocytes % 15.4 % (15.3-44.8); MPV 8.3 fL (7.6-11.3); RBC Red Blood Cell Count 4.31 M/uL (4.33-5.43)
[2020-08-12 15:19] LABS: ALT/SGPT 15 U/L (12-78); AST/SGOT 13 U/L (15-37); Albumin 3.1 g/dL (3.4-5.0); Alkaline Phosphatase 95 U/L (45-117); BUN Blood Urea Nitrogen 5 mg/dL (7-18); Bicarbonate 31 mmol/L (21-32); Bilirubin Direct 0.1 mg/dL (0-0.2); Bilirubin Total 0.4 mg/dL (0.2-1.0); Glucose Level 95 mg/dL (74-106); Lipase 203 U/L (73-393); Potassium 4.1 mmol/L (3.5-5.1); Protein, Total 7.6 g/dL (6.4-8.2); Sodium Level 142 mmol/L (136-145)
--- NOTE | 2020-08-12 15:24 | RAD REPORT ---
EXAM DESCRIPTION: CT - Abdomen Pelvis W Contrast - 08/12/2020 3:03 pm CLINICAL HISTORY: Abdominal pain. COMPARISON: June 2000 TECHNIQUE: Computed axial tomography of the abdomen and pelvis was obtained. 100 cc Isovue-300 is ad ministered intravenously. Oral contrast was given. All CT scans are performed using dose optimization technique as appropriate and may include automated exposure control or mA/KV adjustment according to patient size. FINDINGS: Chronic appearing lung opacities Subcentimeter low-density lesion within the liver too small to characterize by CT criteria but probab ly cyst. Spleen, pancreas, adrenals and kidneys unremarkable Normal appendix Left hemicolectomy with Meenu's pouch. Small fluid collection within left lower quadrant has resol [place]. Diverticula stem from the colon without evidence of diverticulitis. Small inguinal hernias. Mild enlargement prostate gland IMPRESSION: No acute abnormality displayed
--- NOTE | 2020-08-12 15:25 | RAD REPORT ---
EXAM DESCRIPTION: Isabel Single View08/12/2020 1:14 pm CLINICAL HISTORY: Abdominal pain COMPARISON: 2015 FINDINGS: Mild chronic appearing lung opacities. The lungs appear clear of acute infiltrate. The heart is normal size IMPRESSION: No acute abnormalities displayed
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
[2020-08-12 16:49] VITALS: TEMP 97.4
[2020-08-12 16:50] VITALS: BP 143/87; O2SAT 97
== END 2020-08-12 16:36 | disposition home or self-care (01) ==
LOC: ER 12:22
DX: R10.819 Abdominal tenderness, unspecified site (principal); E66.9 Obesity, unspecified; F17.210 Nicotine dependence, cigarettes, uncomplicated; Z68.38 Body mass index [BMI] 38.0-38.9, adult
CPT/HCPCS: 85025; 80048; 36415; 80076; 81003; 83690; 74177; 71045; Q9967; J7040 ×2; J7030 ×2; J2405; 96374; 96375; 99284

== ENCOUNTER 2020-08-24 13:20 | Emergency (ER) | payer OTHER ==
--- OUTSIDE RECORDS SUMMARY | 2020-08-24 13:24 | XMS REPORT | Continuity of Care Document ---
:1965 Author Organization [facility] t Address [address] [place] [address] Care Team Providers Name Role Phone Kandi Zuniga Attending Clinician Problems This patient has no known problems. Allergies, Adverse Reactions, Alerts This patient has no known allergies or adverse reactions. Medications This patient has no known medications. Procedures This patient has no known procedures. Encounters Start End Encounter Admission Attending Care Care Encounter Source Date/Time Date/Time Type Type Clinicians Facility Department ID 2020-08-13 2020-08-14 Emergency [facility] [id number] 22:12:00 00:10:00 Ana Skelton [id number] [place] [id number] [place] [id number] Results This patient has no known results.
[2020-08-24 15:44] LABS: Absolute Lymphocytes (CBC) 1.4 K/uL (0.7-4.9); Basophils % 1.1 % (0-1.3); Hematocrit 38.6 % (39.6-49.0); Lymphocytes % 22.1 % (15.3-44.8); MPV 7.8 fL (7.6-11.3); RBC Red Blood Cell Count 4.19 M/uL (4.33-5.43)
[2020-08-24 16:01] LABS: ALT/SGPT 14 U/L (12-78); AST/SGOT 16 U/L (15-37); Albumin 3.2 g/dL (3.4-5.0); Alkaline Phosphatase 88 U/L (45-117); BUN Blood Urea Nitrogen 8 mg/dL (7-18); Bicarbonate 32 mmol/L (21-32); Bilirubin Direct < 0.1 mg/dL (0-0.2); Bilirubin Total 0.2 mg/dL (0.2-1.0); Glucose Level 115 mg/dL (74-106); Lipase 52 U/L (73-393); Potassium 3.5 mmol/L (3.5-5.1); Protein, Total 7.6 g/dL (6.4-8.2); Sodium Level 146 mmol/L (136-145)
[2020-08-24] MEDS ORDERED: ONDANSETRON 4 MG/2 ML VIAL ONE (16:04)
[2020-08-24] MEDS ORDERED: MORPHINE 4 MG/ML SYR ONE ×2 (16:04→18:17)
--- NOTE | 2020-08-24 17:06 | RAD REPORT ---
EXAM DESCRIPTION: CT - Abdomen Pelvis W Contrast - 08/24/2020 4:35 pm CLINICAL HISTORY: Abdominal pain COMPARISON: July 2020 TECHNIQUE: Computed axial tomography of the abdomen pelvis was obtained. 100 cc Isovue-300 was admin istered intravenously. Oral contrast was not requested which limits evaluation of bowel. All CT scans are performed using dose optimization technique as appropriate and may include automated exposure control or mA/KV adjustment according to patient size. FINDINGS: Chronic appearing lung opacities Subcentimeter low-density lesion within the liver too small to characterize by CT criteria but probably cyst. Spleen, pancreas, adrenals and kidneys unremarkable Normal appendix Left hemicolectomy with Meenu's pouch. Diverticula stem from the colon without evidence of diverticulitis. Small inguinal hernias. Mild enlargement prostate gland IMPRESSION: No acute abnormality is displayed.
--- NOTE | 2020-08-24 17:44 | ER ---
Nurse's Notes [facility] Name: Issac Ortiz Sr Age: 55 yrs Sex: Male : 1965 Arrival Date: 08/24/2020 Time: 13:24 Bed 19 Private MD: Diagnosis: Abdominal pain, Generalized Presentation: 08/24 13:46 Chief complaint: Patient states: Pt had abdominal sx in the beginning of June, pt stated vg1 reason for surgery was because " there were holes in the intestines". Pt was seen by home health nurse this morning for routine wound cleaning and pt stated nurse told him to come to ED because his "abdomen seemed swollen." Pt has a wound vac and colostomy bag. Coronavirus screen: Client denies travel out of the [place] in the last 14 days. Ebola Screen: Patient negative for fever greater than or equal to 101.5 degrees Fahrenheit, and additional compatible Ebola Virus Disease symptoms. Initial Sepsis Screen: Does the patient meet any 2 criteria? No. Patient's initial sepsis screen is negative. Does the patient have a suspected source of infection? No. Patient's initial sepsis screen is negative. Risk Assessment: Do you want to hurt yourself or someone else? Patient reports no desire to harm self or others. Onset of symptoms was August 24, 2020. 13:46 Method Of Arrival: Ambulatory vg1 13:46 Acuity: RAGHAV 3 vg1 Triage Assessment: 13:48 General: Appears in no apparent distress. comfortable, Behavior is calm, cooperative. vg1 Pain: Complains of pain in umbilical area, suprapubic area, right lower quadrant and left lower quadrant. GI: Abdomen is round distended, obese. Historical: - Allergies: 13:48 No Known Allergies; vg1 - Home Meds: 13:48 Neurontin Oral [Active]; [place] 10-325 mg Oral tab 1 tab every 4 hours [Active]; vg1 - Immunization history:: Adult Immunizations up to date, Client reports receiving the 2nd dose of the Covid vaccine. - Social history:: Smoking status: Patient denies any tobacco usage or history of. Screenin:50 Abuse screen: Denies threats or abuse. Nutritional screening: No deficits noted. vg1 Tuberculosis screening: No symptoms or risk factors identified. Tuberculosis screening:. Fall Risk No fall in past 12 months (0 pts). No secondary diagnosis (0 pts). IV access (20 points). Ambulatory Aid- None/Bed Rest/Nurse Assist (0 pts). Gait- Normal/Bed Rest/Wheelchair (0 pts) Mental Status- Oriented to own ability (0 pts). Total Wong Fall Scale indicates No Risk (0-24 pts). Assessment: 14:00 General: SEE TRIAGE NOTE. bp 16:00 Reassessment: No changes from previously documented assessment. Patient and/or family bp updated on plan of care and expected duration. Pain level reassessed. Patient is alert, oriented x 3, equal unlabored respirations, skin warm/dry/pink. 18:00 Reassessment: PT D/C HOME AMBULATORY WITH FAMILY, DX WITH GENERALIZED ABDOMINAL PAIN. bp Vital Signs: 13:46 BP 148 / 103; Pulse 103; Resp 18; Temp 98.5(O); Pulse Ox 100% ; Weight 117.93 kg; vg1 Height 5 ft. 10 in. (177.80 cm); Pain 8/10; 14:30 BP 115 / 86; Pulse 93; Resp 17; Pulse Ox 100% ; bp 15:30 BP 129 / 87; Pulse 83; Resp 17; Pulse Ox 100% ; bp 16:30 BP 115 / 86; Pulse 93; Resp 17; Pulse Ox 100% ; bp 18:00 BP 116 / 86; Pulse 87; Resp 15; Temp 98.5; Pulse Ox 100% ; bp 13:46 Body Mass Index 37.31 (117.93 kg, 177.80 cm) vg1 ED Course: 13:24 Patient arrived in ED. bp1 13:38 Manish Dickerson, RN is Primary Nurse. bp 13:48 Triage completed. vg1 13:48 Arm band placed on. vg1 13:50 Patient has correct armband on for positive identification. Bed in low position. Call vg1 light in reach. Side rails up X 1. 13:58 Brody Hill PA is PHCP. jr8 13:58 Francisco Javier Newell MD is Attending Physician. jr8 15:30 Inserted saline lock: 20 gauge in right wrist, using aseptic technique. Blood collected.bp 16:35 CT Abd/Pelvis - IV Contrast Only In Process Unspecified. EDMS 18:00 No provider procedures requiring assistance completed. IV discontinued, intact, bp bleeding controlled, No redness/swelling at site. Pressure dressing applied. Administered Medications: 15:49 Drug: morphine 4 mg Route: IVP; Site: right wrist; bp 18:31 Follow up: Response: Pain is decreased bp 15:50 Drug: Zofran (Ondansetron) 4 mg Route: IVP; Site: right wrist; bp 18:31 Follow up: Response: Nausea is decreased bp 17:45 Drug: morphine 4 mg Route: IVP; Site: right wrist; bp 18:32 Follow up: Response: Pain is decreased bp Outcome: 17:43 Discharge ordered by MD. real 18:00 Discharged to home ambulatory. bp 18:00 Condition: stable 18:00 Discharge instructions given to patient, Instructed on discharge instructions, follow up and referral plans. medication usage, Demonstrated understanding of instructions, follow-up care, medications, Prescriptions given X 1. 18:32 Patient left the ED. bp Signatures: Dispatcher [employer] EDMS Brody Hill PA PA jr8 Manish Dickerson RN RN Amelie Mccann RN RN vg1 Bettie Dupree bp1
--- NOTE | 2020-08-24 17:44 | EDPHYS ---
Physician Documentation [facility] Name: Issac Ortiz Sr Age: 55 yrs Sex: Male : 1965 Arrival Date: 08/24/2020 Time: 13:24 Bed 19 Private MD: ED Physician Francisco Javier Newell HPI: 08/24 17:09 This 55 yrs old Male presents to ER via Ambulatory with complaints of jr8 Abdominal Swelling. 17:09 Onset: The symptoms/episode began/occurred acutely, today. The symptoms do not radiate. jr8 Associated signs and symptoms: none. It is unknown whether or not the patient has had similar symptoms in the past. The patient has not recently seen a physician. Patient was being seen by home health today for routine check up for his wound vac and hemicolectomy. Stated that when he was being evaluated was concerned that he had a more distended abdomen than normal. Patient stated that he did have some mild left upper abdominal pain. Historical: - Allergies: 13:48 No Known Allergies; vg1 - Home Meds: 13:48 Neurontin Oral [Active]; [place] 10-325 mg Oral tab 1 tab every 4 hours [Active]; vg1 - Immunization history:: Adult Immunizations up to date, Client reports receiving the 2nd dose of the Covid vaccine. - Social history:: Smoking status: Patient denies any tobacco usage or history of. ROS: 17:14 Eyes: Negative for injury, pain, redness, and discharge, ENT: Negative for injury, jr8 pain, and discharge, Neck: Negative for injury, pain, and swelling, Cardiovascular: Negative for chest pain, palpitations, and edema, Respiratory: Negative for shortness of breath, cough, wheezing, and pleuritic chest pain, Back: Negative for injury and pain, MS/Extremity: Negative for injury and deformity, Skin: Negative for injury, rash, and discoloration, Neuro: Negative for headache, weakness, numbness, tingling, and seizure. 17:14 Abdomen/GI: Positive for abdominal pain, abdominal distension, Negative for nausea, vomiting, and diarrhea, abdominal cramps. Exam: 17:14 Constitutional: This is a well developed, well nourished patient who is awake, alert, jr8 and in no acute distress. Cardiovascular: Regular rate and rhythm with a normal S1 and S2. No gallops, murmurs, or rubs. Normal PMI, no JVD. No pulse deficits. Respiratory: Lungs have equal breath sounds bilaterally, clear to auscultation and percussion. No rales, rhonchi or wheezes noted. No increased work of breathing, no retractions or nasal flaring. Back: No spinal tenderness. No costovertebral tenderness. Full range of motion. Skin: Warm, dry with normal turgor. Normal color with no rashes, no lesions, and no evidence of cellulitis. MS/ Extremity: Pulses equal, no cyanosis. Neurovascular intact. Full, normal range of motion. Neuro: Awake and alert, GCS 15, oriented to person, place, time, and situation. Cranial nerves II-XII grossly intact. Motor strength 5/5 in all extremities. Sensory grossly intact. Cerebellar exam normal. Normal gait. 17:14 Abdomen/GI: Inspection: obese Bowel sounds: active, all quadrants, Palpation: abdomen is soft and non-tender, in all quadrants, Indicators: McBurney's point is not tender, Gallardo's sign is negative, Liver: tenderness, is not appreciated. Vital Signs: 13:46 BP 148 / 103; Pulse 103; Resp 18; Temp 98.5(O); Pulse Ox 100% ; Weight 117.93 kg; vg1 Height 5 ft. 10 in. (177.80 cm); Pain 8/10; 14:30 BP 115 / 86; Pulse 93; Resp 17; Pulse Ox 100% ; bp 15:30 BP 129 / 87; Pulse 83; Resp 17; Pulse Ox 100% ; bp 16:30 BP 115 / 86; Pulse 93; Resp 17; Pulse Ox 100% ; bp 18:00 BP 116 / 86; Pulse 87; Resp 15; Temp 98.5; Pulse Ox 100% ; bp 13:46 Body Mass Index 37.31 (117.93 kg, 177.80 cm) vg1 MDM: 13:58 Patient medically screened. jr8 17:14 Data reviewed: vital signs, nurses notes, lab test result(s), radiologic studies, CT jr8 scan. Data interpreted: Pulse oximetry: on room air is 100 %. Interpretation: normal. Counseling: I had a detailed discussion with the patient and/or guardian regarding: the historical points, exam findings, and any diagnostic results supporting the discharge/admit diagnosis, lab results, radiology results, the need for outpatient follow up, a family practitioner, to return to the emergency department if symptoms worsen or persist or if there are any questions or concerns that arise at home. 17:43 Special discussion: Based on the patient's Hx, exam, and Dx evaluation, there is no jr8 indication for emergent surgery or inpatient Tx. It is understood by the patient/guardian that if the Sx's persist or worsen they need to return immediately for re-evaluation. 17:47 ED course: Last fill was 07/18/20. Acceptable to give limited supply of meds. Explained jr8 to him that he needs to f/u with FP and GS. Patient good with this . 08/24 14:38 Order name: Basic Metabolic Panel; Complete Time: 16:21 08/24 14:38 Order name: CBC with Diff; Complete Time: 15:54 08/24 14:38 Order name: Hepatic Function; Complete Time: 16:21 08/24 14:38 Order name: Lipase; Complete Time: 16:21 08/24 15:28 Order name: CT Abd/Pelvis - IV Contrast Only; Complete Time: 17:08 08/24 14:38 Order name: IV Saline Lock; Complete Time: 15:49 08/24 14:38 Order name: Labs collected and sent; Complete Time: 15:49 jr8 Administered Medications: 15:49 Drug: morphine 4 mg Route: IVP; Site: right wrist; bp 18:31 Follow up: Response: Pain is decreased bp 15:50 Drug: Zofran (Ondansetron) 4 mg Route: IVP; Site: right wrist; bp 18:31 Follow up: Response: Nausea is decreased bp 17:45 Drug: morphine 4 mg Route: IVP; Site: right wrist; bp 18:32 Follow up: Response: Pain is decreased bp Disposition: 19:07 Co-signature as Attending Physician, Francisco Javier Newell MD I agree with the assessment and kdr plan of care. Disposition Summary: 08/24/20 17:43 Discharge Ordered Location: Home jr8 Problem: new jr8 Symptoms: have improved jr8 Condition: Stable jr8 Diagnosis - Abdominal pain, Generalized jr8 Followup: jr8 - With: Private Physician - When: 2 - 3 days - Reason: Recheck today's complaints, Continuance of care, Re-evaluation by your physician Discharge Instructions: - Discharge Summary Sheet jr8 - Abdominal Pain, Adult jr8 Forms: - Medication Reconciliation Form jr8 - Thank You Letter jr8 - Antibiotic Education jr8 - Prescription Opioid Use jr8 Prescriptions: - acetaminophen-codeine 300-15 mg Oral tablet - take 2 tablet by ORAL route every 6 hours As needed as needed; 16 tablet; jr8 Refills: 0, Product Selection Permitted Signatures: Dispatcher [employer] EDLA Francisco Javier Newell MD MD kdr Roszak, Josh, PA PA jr8 Manish Dickerson, RN RN Amelie Mccann RN RN vg1 Corrections: (The following items were deleted from the chart) 17:14 17:09 Patient was being seen by home health today for routine check up for his wound jr8 vac and hemicolectomy. Stated that when he was being evaluated was concerned that he had a more distended abdomen than normal. Patient stated that he did have some mild left upper abdomen . jr8
[2020-08-24 18:48] VITALS: TEMP 98.5; O2SAT 100
[2020-08-24 18:56] VITALS: BP 116/86
== END 2020-08-24 18:32 | disposition home or self-care (01) ==
LOC: ER 13:20
DX: R10.84 Generalized abdominal pain (principal)
CPT/HCPCS: 85025; 80048; 36415; 80076; 83690; 74177; 96375; 96374; 99284; Q9967; J2405

== ENCOUNTER 2020-08-26 16:36 | Inpatient (IN) | payer OTHER ==
--- OUTSIDE RECORDS SUMMARY | 2020-08-26 16:37 | XMS REPORT | Continuity of Care Document ---
:1965 Author Organization [facility] t Address [address] [place] [address] Care Team Providers Name Role Phone Kandi [...] Clinicians Facility Department ID 2020-08-13 2020-08-14 Emergency [facility] [id number] 22:12:00 00:10:00 Ana Skelton [id number] [place] [id number] [place] [id number] [id number] Results This patient has no known results.
[2020-08-26] MEDS ORDERED: FLUMAZENIL 0.1 MG/ML (5 mL VIAL) IV ONE (16:59)
[2020-08-26] MEDS ORDERED: NALOXONE HCL 2 MG/2 ML VIAL ONE (16:59)
[2020-08-26] MEDS ORDERED: RSI MEDICATION KIT IV ONE (17:00)
[2020-08-26 17:06] LABS: Absolute Lymphocytes (CBC) 0.6 K/uL (0.7-4.9); Basophils % 0.5 % (0-1.3); Lymphocytes % 5.2 % (15.3-44.8); MPV 8.1 fL (7.6-11.3); RBC Red Blood Cell Count 4.03 M/uL (4.33-5.43)
[2020-08-26 17:15] LABS: Protime INR 1.13
[2020-08-26 17:25] LABS: Urine Blood 2+ (Negative); Urine Glucose Negative (Negative); Urine Protein 1+ (Negative); Urine Specific Gravity >=1.030 (1.005-1.030); Urine pH 5.5 (5.0-7.0)
[2020-08-26 17:41] LABS: ALT/SGPT 25 U/L (12-78); Albumin 3.2 g/dL (3.4-5.0); Alkaline Phosphatase 103 U/L (45-117); BUN Blood Urea Nitrogen 14 mg/dL (7-18); Bicarbonate 26 mmol/L (21-32); Bilirubin Total 0.3 mg/dL (0.2-1.0); Glucose Level 189 mg/dL (74-106); Lipase 169 U/L (73-393); NT PRO-BNP 4610 pg/mL (<125); Protein, Total 8.1 g/dL (6.4-8.2); Sodium Level 137 mmol/L (136-145); Troponin (Emerg Dept Use Only) 0.36 ng/mL (0.0-0.045)
[2020-08-26 17:48] LABS: Barbiturates NEGATIVE (NEGATIVE); Benzodiazepines POSITIVE (NEGATIVE); Cocaine NEGATIVE (NEGATIVE); METHAMPHETAM NEGATIVE (NEGATIVE); Methadone POSITIVE (NEGATIVE); Opiates POSITIVE (NEGATIVE); Phencyclidine NEGATIVE (NEGATIVE); THC Cannibis POSITIVE (NEGATIVE)
[2020-08-26 17:48] LABS: AST/SGOT 47 U/L (15-37); Bilirubin Direct < 0.1 mg/dL (0-0.2); Creatine Phosphokinase 646 U/L (39-308); Magnesium 2.4 mg/dL (1.8-2.4)
[2020-08-26 18:13] LABS: Arterial Blood Carboxyhemoglob 2.4 % (0-1.5); Blood Gas Oxyhemoglobin 89.4 % (94-97); Blood O2 Saturation 92.5 % (92-98.5)
[2020-08-26] MEDS ORDERED: NA CHLORIDE 0.9% 100 ML ONE (18:34)
[2020-08-26] MEDS ORDERED: PIPERACIL/TAZO 3.375 GM VIAL IV ONE (18:34)
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
--- NOTE | 2020-08-26 18:37 | EDPHYS ---
Physician Documentation [facility] Name: Issac Ortiz Sr Age: 55 yrs Sex: Male : 1965 Arrival Date: 08/26/2020 Time: 16:38 Bed 4 Private MD: ED Physician Jluis Hines HPI: 08/26 17:04 This 55 yrs old Male presents to ER via EMS with complaints of Unresponsive. tw4 17:04 The patient presents with decreased mental status, decreased responsiveness. Onset: The tw4 symptoms/episode began/occurred today. Associated signs and symptoms: The patient has no apparent associated signs or symptoms. Current symptoms: In the emergency department the patient's symptoms are unchanged from the initial presentation. The patient has not experienced similar symptoms in the past. Historical: - Allergies: 16:38 No Known Allergies; aa5 - PMHx: 16:38 Chronic pain; ACCIDENT - FELL THRU ROOF; Diverticulitis; aa5 - PSHx: 16:38 Colostomy; aa5 - Immunization history:: Adult Immunizations unknown. - Social history:: Smoking status: unknown. ROS: 17:04 Constitutional: Negative for fever, chills, and weight loss, Eyes: Negative for injury, tw4 pain, redness, and discharge, Cardiovascular: Negative for chest pain, palpitations, and edema, Respiratory: Negative for shortness of breath, cough, wheezing, and pleuritic chest pain, Abdomen/GI: Negative for abdominal pain, nausea, vomiting, diarrhea, and constipation, Back: Negative for injury and pain, MS/Extremity: Negative for injury and deformity, Skin: Negative for injury, rash, and discoloration. 17:04 Neuro: Positive for altered mental status, Negative for dizziness, gait disturbance, headache. Exam: 17:04 Constitutional: This is a well developed, well nourished patient who is awake, alert, tw4 and in no acute distress. Head/Face: Normocephalic, atraumatic. Chest/axilla: Normal chest wall appearance and motion. Nontender with no deformity. No lesions are appreciated. Cardiovascular: Regular rate and rhythm with a normal S1 and S2. No gallops, murmurs, or rubs. Normal PMI, no JVD. No pulse deficits. Respiratory: Lungs have equal breath sounds bilaterally, clear to auscultation and percussion. No rales, rhonchi or wheezes noted. No increased work of breathing, no retractions or nasal flaring. Back: No spinal tenderness. No costovertebral tenderness. Full range of motion. 17:04 Abdomen/GI: Inspection: distension, that is severe, Bowel sounds: diminished, scar with wound vac, colostomy. 18:36 An electrocardiogram was deferred on this patient tw4 Vital Signs: 16:38 BP 121 / 76; Pulse 95; Resp 20 S; Pulse Ox 100% on Non-rebreather mask; aa5 17:30 BP 117 / 83; Pulse 89; Resp 23; Pulse Ox 100% on 5 lpm NC; jl7 18:08 BP 148 / 106; Pulse 89; Resp 26; Temp 97.9; Pulse Ox 97% on BiPAP; jl7 20:14 BP 144 / 68; Pulse 90; Resp 20; Pulse Ox 100% on NC; ea 20:46 BP 135 / 75; Pulse 86; Resp 20; Pulse Ox 97% on NC; ea MDM: 16:47 Patient medically screened. tw4 17:04 Data reviewed: vital signs, nurses notes. Data interpreted: Pulse oximetry: tw4 Interpretation: normal. 08/26 16:48 Order name: Acetaminophen; Complete Time: 17:53 tr6 08/26 16:48 Order name: Basic Metabolic Panel; Complete Time: 17:53 tr6 08/26 17:54 Interpretation: GLUC 189; CRE 1.31; GFR 57. tw4 08/26 16:48 Order name: CBC with Diff tr6 08/26 17:54 Interpretation: Normal except: MCV 96.7; HCT 39.0; HGB 12.3; RBC 4.03; MCHC 31.5; EIRC% tw4 88.7. 08/26 16:48 Order name: ETOH Level; Complete Time: 17:53 6 08/26 16:48 Order name: Hepatic Function; Complete Time: 17:53 tr 08/26 17:54 Interpretation: Normal except: ALB 3.2; GLOB 4.9; A/G 0.7; AST 47. tw4 08/26 16:48 Order name: PT-INR; Complete Time: 17:53 [facility] 08/26 17:54 Interpretation: Normal except: PT 13.0. tw4 08/26 16:48 Order name: Ptt, Activated; Complete Time: 17:53 [facility] 08/26 16:48 Order name: Salicylate; Complete Time: 17:53 [facility] 08/26 17:54 Interpretation: Normal except: JENNA 2.3. [facility] 08/26 16:48 Order name: Urine Drug Screen; Complete Time: 17:53 [facility] 08/26 17:55 Interpretation: Normal except: BZO POSITIVE; OPI POSITIVE; THC POSITIVE; METH POSITIVE. [facility] 08/26 16:48 Order name: BMP [facility] 08/26 16:48 Order name: Blood Culture Adult (2) [facility] 08/26 16:48 Order name: CPK; Complete Time: 17:53 [facility] 08/26 17:55 Interpretation: Abnormal: CPK 646. [facility] 08/26 16:48 Order name: D-Dimer; Complete Time: 17:53 [facility] 08/26 16:48 Order name: Lipase; Complete Time: 17:53 [facility] 08/26 16:48 Order name: Magnesium; Complete Time: 17:53 [facility] 08/26 16:48 Order name: NT PRO-BNP; Complete Time: 17:53 [facility] 08/26 16:48 Order name: Troponin (emerg Dept Use Only); Complete Time: 17:53 [facility] 08/26 16:48 Order name: XRAY CXR (1 view) [facility] 08/26 17:25 Order name: Urine Dipstick-Ancillary; Complete Time: 17:53 [facility] 08/26 17:55 Order name: CT Chest For PE Angio [facility] 08/26 17:58 Order name: ABG [facility] 08/26 17:58 Order name: ABG Arterial Blood Gas [facility] 08/26 18:42 Order name: SARS-COV-2 RT PCR [facility] 08/26 20:46 Order name: CBC Smear Scan [facility] 08/26 16:48 Order name: EKG; Complete Time: 16:49 [facility] 08/26 16:48 Order name: EKG - Nurse/Tech; Complete Time: 16:51 [facility] 08/26 16:48 Order name: IV Saline Lock; Complete Time: 16:48 [facility] 08/26 16:48 Order name: Labs collected and sent; Complete Time: 16:48 [facility] 08/26 16:48 Order name: Suicide Screening ([place]); Complete Time: 16:51 tr08/26 16:48 Order name: Urine Dipstick-Ancillary (obtain specimen); Complete Time: 17:25 08/26 16:48 Order name: EKG; Complete Time: 16:49 08/26 16:48 Order name: Cardiac monitoring; Complete Time: 16:50 08/26 16:48 Order name: EKG - Nurse/Tech; Complete Time: 16:51 08/26 16:48 Order name: IV Saline Lock; Complete Time: 16:51 08/26 16:48 Order name: Labs collected and sent; Complete Time: 16:51 08/26 16:48 Order name: O2 Per Protocol; Complete Time: 16:51 08/26 16:48 Order name: O2 Sat Monitoring; Complete Time: 16:51 08/26 18:08 Order name: Abdomen 1 View (KUB) XRAY kj1 EC:36 Rate is 96 beats/min. Rhythm is regular. Left axis deviation noted. LA interval is tw4 normal. QRS interval is normal. QT interval is normal. No Q waves. T waves are Normal. No ST changes noted. Clinical impression: incomplete RBBB. Interpreted by me. Reviewed by me. Administered Medications: 16:42 Drug: Flumazenil 0.2 mg Route: IVP; Site: left antecubital; aa5 18:08 Follow up: Response: No adverse reaction jl7 16:43 Drug: NARcan (naloxone) 2 mg Route: IVP; Site: left antecubital; aa5 18:08 Follow up: Response: No adverse reaction jl7 18:52 Drug: Zosyn (piperacillin-tazobactam) 3.375 grams Route: IVPB; Infused Over: 60 mins; jl7 Site: right hand; 20:00 Follow up: Response: No adverse reaction; IV Status: Completed infusion ea Disposition Summary: 08/26/20 18:35 Hospitalization Ordered Hospitalization Status: Inpatient Admission tw4 Provider: Sher Bhatia 4 Location: Telemetry/MedSurg (Inpatient) tw4 Condition: Fair tw4 Problem: new tw4 Symptoms: have improved tw4 Bed/Room Type: Standard 4 Room Assignment: 224(08/26/20 20:34) Diagnosis - Poisoning by benzodiazepines, accidental (unintentional) tw4 - Poisoning by other narcotics, accidental (unintentional), sequela tw4 - Hypoxemia tw4 - Altered mental status, unspecified tw4 Forms: - Medication Reconciliation Form tw4 - SBAR form tw4 Signatures: Dispatcher [employer] EDMS Shy Maynard, RN RN aa5 Georgette Bonner, RN RN cg Sumeet Osman RN RN jl7 Jluis Hines MD MD tw4 Giselle Chow RN RN tr6 Carrie Shah RN ea Corrections: (The following items were deleted from the chart) 16:49 16:49 Basic Metabolic Panel ordered. EDMS EDMS 16:49 16:49 CBC+H.LAB.BRZ ordered. EDMS EDMS 16:49 16:49 HEPATIC FUNCTION+C.LAB.BRZ ordered. EDMS EDMS 16:49 16:49 PROTIME (+INR)+COAG.LAB.BRZ ordered. EDMS EDMS 16:49 16:49 PTT, ACTIVATED+COAG.LAB.BRZ ordered. EDMS EDMS 17:37 17:19 CORONAVIRUS+MR.LAB.BRZ ordered. EDMS EDMS 20:34 18:35 tw4 cg
--- NOTE | 2020-08-26 20:05 | RAD REPORT ---
EXAM DESCRIPTION: CT - Chest For Pe Angio - 08/26/2020 7:49 pm CLINICAL HISTORY: Shortness breath COMPARISON: None. TECHNIQUE: Dynamically enhanced axial 3 mm thick images of the chest were obtained during administra tion of <100> mL Isovue 370 IV contrast. Coronal and oblique reconstruction images were generated and reviewed. Exam utilizes a protocol for optimal evaluation of pulmonary arterial tree. Maximum intensity projections 3D imaging was utilized All CT scans are performed using dose optimization technique as appropriate and may include automated exposure control or mA/KV adjustment according to patient size. FINDINGS: A pulmonary embolus is not seen. A thoracic aortic aneurysm is not noted. A pleural effusion is not seen. A pericardial effusion is not seen. Calcified hilar lymph nodes Right lung peribronchial thickening. Mild reticular lung opacities bilaterally IMPRESSION: Negative for a pulmonary embolism. Right lung peribronchial thickening with mild reticular lung opacities bilaterally. These could be ch ronic or indicate pneumonitis or atypical infection
--- NOTE | 2020-08-26 20:06 | RAD REPORT ---
EXAM DESCRIPTION: Isabel Single View08/26/2020 5:52 pm CLINICAL HISTORY: Shortness of breath COMPARISON: July 2020 FINDINGS: Mild bilateral interstitial lung opacities. The heart is mildly enlarged IMPRESSION: Mild bilateral interstitial lung opacities may indicate pneumonitis or atypical infectio n
[2020-08-26 20:45] LABS: Blood Morphology Comment NOTED (NOT SEEN); Platelet Estimate ADEQ; White Blood Cell Scan OK (OK)
[2020-08-26 20:46] LABS: Poikilocytosis 1+
[2020-08-26] MEDS ORDERED: ONDANSETRON 4 MG/2 ML VIAL IV PRN (21:53)
[2020-08-26] MEDS ORDERED: ACETAMINOPHEN 500 MG TAB PO PRN (21:53)
[2020-08-26] MEDS ORDERED: NA CHLORIDE 0.9% 1,000 ML IV SCH (21:53)
--- NOTE | 2020-08-26 21:55 | RAD REPORT ---
EXAM DESCRIPTION: RAD - Abdomen 1 View (KUB) - 08/26/2020 9:48 pm CLINICAL HISTORY: Abdomen pain. FINDINGS: Air is present within nondilated large and small bowel in a nonspecific fashion. Free air is not seen beneath the diaphragm.
--- NOTE | 2020-08-26 22:50 | P.HP ---
Certification for Inpatient Patient admitted to: Inpatient Patient will require the following post-hospital care: None Practitioner: I am a practitioner with admitting privileges, knowledge of patient current condition, hospital course, and medical plan of care. Services: Services provided to patient in accordance with Admission requirements found in Title 42 Section 412.3 of the Code of Federal Regulations Patient History Date of Service: 08/26/20 Primary Care Provider: DEREK EMJÍA NP Reason for admission: Respiratory failure History of Present Illness: 55-year-old male with history of chronic pain, colonic diverticulitis with complications requiring ostomy, wound VAC to the midline abdomen presents to the emergency department for altered mental status. reports that patient states out in the living room on a hospital bed and when she saw him this morning is sounded as if he was slurring his speech more than normal. Later in the day she noticed that he had become incontinent of urine which was very unlike him. EMS was called to evaluate patient is found to be profoundly hypoxic with saturations in the 30s on room air. Patient has been known to use opioids and benzos for his chronic pain both prescribed A and recreationally, EMS administered Narcan with minimal affect. When patient arrived in the emergency department he was given Romazicon with work immediately, patient awoke, confused about his surroundings. Patient was still mildly hypoxic and requiring BiPAP, ABG demonstrates hypercapnia, hypoxia other labs significant for what was 11.7 D-dimer 2400 creatinine 1.3 GFR 57 glucose 189 CPK 646 troponin 0.36 BNP 4610 drug screen positive for opiates, methadone, benzodiazepines, THC. CT PE protocol with right-sided peribronchial thickening no PE. Patient improved greatly throughout his emergency department stay, at this time patient on nasal cannula saturating well oriented x4 speech clear area. ED wishes to admit for further evaluation. Allergies No Known Allergies Allergy (Verified 07/16/20 22:24) - Past Medical/Surgical History Diabetic: No -: Chronic Knee Pain -: Diverticulitis -: Opioid/benzo abuse -: Knee Surgery -: Ankle Surgery -: colostomy -: Abdominal surgery requiring wound VAC Psychosocial/ Personal History: Patient lives at home with his , has home health/hospital bed - Family History Mother -: Heart disease Father -: Heart disease - Social History Smoking Status: Current every day smoker Counseled patient to stop smoking for: less than 10 minutes Alcohol use: No CD- Drugs: Yes Caffeine use: No Place of Residence: Home Review of Systems 10-point ROS is otherwise unremarkable Respiratory: Cough, Shortness of Breath Physical Examination - Vital Signs Temperature: 97.9 F Blood Pressure: 135/75 Pulse: 86 Respirations: 20 - Physical Exam General: Alert, In no apparent distress, Oriented x3, Obese HEENT: Atraumatic, Other (Mucous membranes dry) Neck: Supple Respiratory: Diminished (Bilaterally) Cardiovascular: No edema, Normal S1 S2 Capillary refill: <2 Seconds Gastrointestinal: Normal bowel sounds, No tenderness, No masses, No rebound, No guarding, Other (Midline abdominal incision with wound VAC dressing in place without any surrounding cellulitis/erythema/tenderness. Ostomy also in place left lower quadrant) Musculoskeletal: No contractures, No erythema, No tenderness Integumentary: No significant lesion, No tenderness/swelling, No erythema Neurological: Normal speech, Normal strength at 5/5 x4 extr, Normal tone, Sensation intact - Studies Laboratory Data (last 24 hrs) 08/26/20 16:50: PT 13.0 H, INR 1.13, APTT 29.4 08/26/20 16:50: WBC 11.70 H D, Hgb 12.3 L, Hct 39.0 L, Plt Count 332 08/26/20 16:50: Sodium 137, Potassium 5.0, BUN 14, Creatinine 1.31 H, Glucose 189 H, Magnesium 2.4 D, Total Bilirubin 0.3, AST 47 H, ALT 25, Alkaline Phosphatase 103, Lipase 169 Assessment and Plan - Plan Assessment Acute hypoxic, hypercapnic respiratory failure secondary to accidental benzodiazepine/opioid overdose complicated with possible right-sided aspiration pneumonia Elevated troponin History of diverticulitis with complications requiring an ostomy and midline abdominal incision with wound VAC in place Chronic pain Hyperglycemia Obesity Tobacco abuse Plan Acute hypoxic, hypercapnic respiratory failure secondary to accidental benzodiazepine/opioid overdose complicated with possible right-sided aspiration pneumonia: Continue with supplemental oxygen as needed, mental status has improved greatly, patient oriented x4 this time maintaining his own airway well. Continue with p.r.n. BiPAP, pulse oximetry, daily room air saturations. Continue Zosyn, will obtain pro calcitonin with morning labs. CT with right- sided peribronchial thickening. Patient reports that he has chronic pain for which she has been taking Tylenol with codeine/Ativan/Xanax reports he occasionally takes benzodiazepines from friends. Patient counseled on need to discontinue use of non prescribed medications and be more careful with his prescribed medications. ABG with morning labs. DVT prophylaxis Lovenox 40 mg subcutaneous once daily. Elevated troponin: Likely demand ischemia, negative for pulmonary embolism, patient denies any chest pain. Will trend troponin levels, if there is significant increase or patient developed chest pain will treat accordingly with full-dose Lovenox/aspirin. Cardiology has been consulted. History of diverticulitis with complications requiring an ostomy and midline abdominal incision with wound VAC in place: This is stable, patient sees general surgery. Patient with home health 3 days a week and hospital bed at home. Patient had CT abdomen pelvis 2 days prior which was negative for any acute findings. KUB pending. Chronic pain: Will provide patient with medication only as needed and limit as possible due to recent suspected overdose. Hyperglycemia: Will obtain A1c with morning labs Obesity : Will Consul on lifestyle changes. Tobacco abuse: Provide Nicoderm patch p.r.n., counseled on need for tobacco cessation. Discharge Plan: Home Plan to discharge in: 48 Hours - Advance Directives Does patient have a Living Will: No Does patient have a Durable POA for Healthcare: No - Code Status/Comfort Care Code Status Assessed: Yes (Full code) Critical Care: No Time Spent Managing Pts Care (In Minutes): 55
[2020-08-26 22:59] VITALS: BMI 31.5
[2020-08-27] MEDS: PIPER/TAZO/NS 3.375gm 3.375 GM/100 ML BAG IVPB SCH ×3 (01:00→16:00)
[2020-08-27] MEDS ORDERED: PIPERACIL/TAZO 3.375 GM VIAL IV ONE (01:11)
[2020-08-27] MEDS ORDERED: NA CHLORIDE 0.9% 100 ML ONE (01:20)
[2020-08-27 03:57] LABS: Urine Appearance CLEAR (Clear); Urine Bilirubin NEGATIVE (Negative); Urine Blood 3+ (Negative); Urine Color YELLOW (Yellow); Urine Glucose NEGATIVE (Negative); Urine Protein NEGATIVE (Negative); Urine Specific Gravity 1.015 (1.005-1.030); Urine Urobilinogen 0.2 mg/dL (0.2-1.0)
[2020-08-27 04:09] LABS: Urine Microscopic Reflex ORDER UMIC
[2020-08-27 04:12] LABS: Basophils % 0.3 % (0-1.3); Hematocrit 36.9 % (39.6-49.0); Lymphocytes % 9.3 % (15.3-44.8); MPV 8.4 fL (7.6-11.3)
[2020-08-27 04:55] LABS: ALT/SGPT 58 U/L (12-78); AST/SGOT 93 U/L (15-37); Albumin 2.9 g/dL (3.4-5.0); Alkaline Phosphatase 73 U/L (45-117); BUN Blood Urea Nitrogen 13 mg/dL (7-18); Bicarbonate 34 mmol/L (21-32); Bilirubin Total 0.3 mg/dL (0.2-1.0); Glucose Level 112 mg/dL (74-106); HDL Cholesterol 37 mg/dL (40-60); LDL Cholesterol, Calculated 76 (<130); Magnesium 2.2 mg/dL (1.8-2.4); Potassium 3.9 mmol/L (3.5-5.1); Sodium Level 141 mmol/L (136-145)
[2020-08-27 04:57] LABS: Troponin I 0.54 ng/mL (0.0-0.045)
[2020-08-27 05:26] LABS: Arterial Blood Carboxyhemoglob 1.2 % (0-1.5); Blood Gas Oxyhemoglobin 93.2 % (94-97); Blood O2 Saturation 95.5 % (92-98.5)
[2020-08-27 05:52] LABS: Urine Bacteria <20 /HPF (NONE SEEN)
--- NOTE | 2020-08-27 05:56 | P.PN ---
Subjective Date of Service: 08/27/20 Primary Care Provider: DEREK MEJÍA NP Chief Complaint: Respiratory failure Subjective: Other (Patient improved. Patient on 3 L per nasal cannula.) Physical Examination - Vital Signs Temperature: 98.4 F Blood Pressure: 104/52 Pulse: 84 Respirations: 18 Pulse Ox (%): 94 - Studies Laboratory Data (last 24 hrs) 08/26/20 16:50: PT 13.0 H, INR 1.13, APTT 29.4 08/26/20 16:50: WBC 11.70 H D, Hgb 12.3 L, Hct 39.0 L, Plt Count 332 08/26/20 16:50: Sodium 137, Potassium 5.0, BUN 14, Creatinine 1.31 H, Glucose 189 H, Magnesium 2.4 D, Total Bilirubin 0.3, AST 47 H, ALT 25, Alkaline P hosphatase 103, Lipase 169 Assessment & Plan Discharge Plan: Home Plan to discharge in: 24 Hours Physician Review Additional Text: CT scan: COMPARISON: None. TECHNIQUE: Dynamically enhanced axial 3 mm thick images of the chest were obtained during administration of <100> mL Isovue 370 IV contrast. Coronal and oblique reconstruction images were generated and reviewed. Exam utilizes a protocol for optimal evaluation of pulmonary arterial tree. Maximum intensity projections 3D imaging was utilized All CT scans are performed using dose optimization technique as appropriate and may include automated exposure control or mA/KV adjustment according to patient size. FINDINGS: A pulmonary embolus is not seen. A thoracic aortic aneurysm is not noted. A pleural effusion is not seen. A pericardial effusion is not seen. Calcified hilar lymph nodes Right lung peribronchial thickening. Mild reticular lung opacities bilaterally IMPRESSION: Negative for a pulmonary embolism. Right lung peribronchial thickening with mild reticular lung opacities bilaterally. These could be chronic or indicate pneumonitis or atypical infection KUB: CLINICAL HISTORY: Abdomen pain. FINDINGS: Air is present within nondilated large and small bowel in a nonspecific fashion. Free air is not seen beneath the diaphragm. Physical exam: General: Alert, In no apparent distress, Oriented x3, Obese. Patient has improved. Previously on BiPAP now on 3 L per nasal cannula. HEENT: Atraumatic, Other (Mucous membranes dry) Neck: Supple Respiratory: Diminished (Bilaterally) Cardiovascular: No edema, Normal S1 S2 Capillary refill: <2 Seconds Gastrointestinal: Normal bowel sounds, No tenderness, No masses, No rebound, No guarding, Other (Midline abdominal incision with wound VAC dressing in place without any surrounding cellulitis/erythema/tenderness. Ostomy also in place left lower quadrant) Musculoskeletal: No contractures, No erythema, No tenderness Integumentary: No significant lesion, No tenderness/swelling, No erythema Neurological: Normal speech, Normal strength at 5/5 x4 extr, Normal tone, Sensation intact Impression: Acute hypoxic, hypercapnic respiratory failure secondary to accidental benzodiazepine/opioid overdose complicated with possible right-sided aspiration pneumonia Elevated troponin likely ischemic demand History of diverticulitis with complications requiring an ostomy and midline ab dominal incision with wound VAC in place Chronic pain Hyperglycemia Obesity Tobacco abuse GERD Plan Acute hypoxic, hypercapnic respiratory failure secondary to accidental b enzodiazepine/opioid overdose complicated with possible right-sided aspiration pneumonia: Patient has improved. Patient has transition from BiPAP to nasal cannula. Continue to wean off. Currently on 3 L per nasal cannula. Continue IV Zosyn. Continue IV fluids. Encourage incentive spirometer. Patient reports that he has chronic pain for which she has been taking Tylenol with code ine/Ativan/Xanax. It is reported that the mentioned he occasionally takes benzodiazepines from friends. Will need to investigate this further. Need to continue to treatment counselor on the need to discontinue nonprescribed medication and to limit narcotics/benzodiazepines. Continue DVT prophylaxis. Recheck chest x-ray tomorrow. Continue to wean off oxygen. Cardiology consulted due to elevated troponin likely from ischemic demand. We will continue to monitor and trend lab. Await recommendations by cardiology. Anticipate improvement over the next 48 hours. Elevated troponin likely ischemic demand: CT negative for pulmonary embolism. Patient with aspiration pneumonia related to above. Continue IV antibiotic therapy. Continue to monitor and trend troponin. Patient on Lovenox and aspirin. Will discuss further with cardiology about plan of care. History of diverticulitis with complications requiring an ostomy and midline abdominal incision with wound VAC in place: This is stable, patient sees general surgery. Patient with home health 3 days a week and hospital bed at home. Patient had CT abdomen pelvis 2 days prior which was negative for any acute findings. KUB pending. Chronic pain: Will provide patient with medication only as needed and limit as possible due to recent suspected overdose. Will adjust medication accordingly. Will provide folic acid and thiamine. Hyperglycemia: Will check A1c to evaluate for underlying diabetes. Obesity BMI 31.6: Will address lifestyle modification education. Tobacco abuse: Provide Nicoderm patch p.r.n., counseled on need for tobacco cessation. GERD: Will add Protonix. DVT prophylaxis: Lovenox CODE STATUS: Full code Advanced care [id number] minutes: Plan for discharge to home Time Spent Managing Pts Care (In Minutes): 55
[2020-08-27] MEDS ORDERED: KCL 20 MEQ/100 mL IVPB 20 MEQ/100 ML BAG IV SCH (06:00)
[2020-08-27] MEDS: ENOXAPARIN 40 MG/0.4 ML SQ SCH (08:00)
[2020-08-27] MEDS: NA CHLORIDE 0.9% 1,000 ML IV SCH (10:00)
[2020-08-27] MEDS: TRAMADOL HCL 50 MG TAB PO PRN (15:12)
--- NOTE | 2020-08-27 16:08 | EKG ---
Test Date: 2020-08-26 Test Time: 16:48:12 Scrap Preparer: RADHA MEASUREMENT RESULTS: Intervals: Rate: 96 WI: 152 QRSD: 114 QT: 376 QTc: 475 [place]: P: 27 WI: 152 QRS: -42 T: 6 INTERPRETIVE STATEMENTS: Sinus rhythm with fusion complexes Left axis deviation Incomplete right bundle branch block Abnormal ECG Compared to ECG 06/12/2020 12:14:42 Fusion complex(es) now present Incomplete right bundle-branch block now present Electronically Signed On 08-27-20 16:04:18 CDT by Wenceslao Baez
[2020-08-28] MEDS: PIPER/TAZO/NS 3.375gm 3.375 GM/100 ML BAG IVPB SCH ×3 (00:32→16:00)
[2020-08-28 04:24] LABS: Absolute Lymphocytes (CBC) 0.8 K/uL (0.7-4.9); Basophils % 0.2 % (0-1.3); Hematocrit 35.7 % (39.6-49.0); Lymphocytes % 8.2 % (15.3-44.8); MPV 8.8 fL (7.6-11.3); RBC Red Blood Cell Count 3.82 M/uL (4.33-5.43)
[2020-08-28 04:26] LABS: ALT/SGPT 57 U/L (12-78); AST/SGOT 66 U/L (15-37); Albumin 2.8 g/dL (3.4-5.0); Alkaline Phosphatase 74 U/L (45-117); BUN Blood Urea Nitrogen 8 mg/dL (7-18); Bicarbonate 32 mmol/L (21-32); Bilirubin Total 0.5 mg/dL (0.2-1.0); Glucose Level 101 mg/dL (74-106); Potassium 3.4 mmol/L (3.5-5.1); Protein, Total 7.1 g/dL (6.4-8.2); Sodium Level 140 mmol/L (136-145)
[2020-08-28] MEDS: NA CHLORIDE 0.9% 1,000 ML IV SCH (04:55)
--- NOTE | 2020-08-28 06:18 | P.DS ---
Admission Date: 08/26/20 Discharge Date: 08/28/20 Primary Care Provider: DEREK MEJÍA TRANSFER COORDINATOR Disposition: ROUTINE DISCHARGE Discharge Condition: GOOD Reason for Admission: Respiratory failure Consultations: Cardiology-Dr. Baez Procedures: COVID: Negative CT scan: COMPARISON: None. TECHNIQUE: Dynamically enhanced axial 3 mm thick images of the chest were obtained during administration of <100> mL Isovue 370 IV contrast. Coronal and oblique reconstruction images were generated and reviewed. Exam utilizes a protocol for optimal evaluation of pulmonary arterial tree. Maximum intensity projections 3D imaging was utilized All CT scans are performed using dose optimization technique as appropriate and may include automated exposure control or mA/KV adjustment according to patient size. FINDINGS: A pulmonary embolus is not seen. A thoracic aortic aneurysm is not noted. A pleural effusion is not seen. A pericardial effusion is not seen. Calcified hilar lymph nodes Right lung peribronchial thickening. Mild reticular lung opacities bilaterally IMPRESSION: Negative for a pulmonary embolism. Right lung peribronchial thickening with mild reticular lung opacities bilaterally. These could be chronic or indicate pneumonitis or atypical infection KUB: CLINICAL HISTORY: Abdomen pain. FINDINGS: Air is present within nondilated large and small bowel in a nonspecific fashion. Free air is not seen beneath the diaphragm. ECHO: MEASUREMENTS (cm) DIASTOLIC (NORMALS) SYSTOLIC (NORMALS) IVSd 1.1 (0.6-1.2) LA Diam 3.9 (1.9-4.0) LVEF 57% LVIDd 4.8 (3.5-5.7) LVIDs 3.4 (2.0-3.5) %FS 30% LVPWd 1.2 (0.6-1.2) Ao Diam 2.9 (2.0-3.7) 2 DIMENSIONAL ASSESSMENT: RIGHT ATRIUM: NORMAL LEFT ATRIUM: NORMAL RIGHT VENTRICLE: NORMAL LEFT VENTRICLE: NORMAL TRICUSPID VALVE: NORMAL MITRAL VALVE: NORMAL PULMONIC VALVE: NORMAL AORTIC VALVE: NORMAL PERICARDIAL EFFUSION: NONE AORTIC ROOT: NORMAL LEFT VENTRICULAR WALL MOTION: NORMAL DOPPLER/COLOR FLOW: MILD TRICUSPID REGURGITATION COMMENTS: MILD TRICUSPID REGURGITATION NORMAL RIGHT VENTRICULAR SYSTOLIC PRESSURE. NORMAL LEFT VENTRICULAR SIZE AND FUNCTION. NO EFFUSION. Follow up CXR: COMPARISON: August 26, 2020 FINDINGS: No significant change in the mild bibasilar lung opacities. Right peribronchial thickening unchanged. Heart remains enlarged Impression: Acute hypoxic, hypercapnic respiratory failure secondary to accidental benzodiazepine/opioid/methadone overdose complicated with right-sided aspiration pneumonia Elevated troponin likely ischemic demand History of diverticulitis with complications requiring an ostomy and midline abdominal incision with wound VAC in place Chronic pain Hyperglycemia with prediabetes Obesity, BMI 31.6 Tobacco abuse GERD Brief History of Present Illness: 55-year-old male with history of chronic pain, colonic diverticulitis with complications requiring ostomy, wound VAC to the midline abdomen presents to the emergency department for altered mental status. reports patient stays in the living room on a hospital bed. She apparently saw the patient incoherent. Patient was also incontinent of urine. EMS was called. EMS evaluated the and found the patient to be hypoxic with saturations in the 30s on room air. Patient has been known to use opioids and benzos for his chronic pain both prescribed and recreationally. EMS administered Narcan with minimal affect. When patient arrived in the emergency department he was given Romazicon which worked immediately. Patient was more alert after this. ABG demonstrates hypercapnia, hypoxia other labs significant for what was 11.7 D-dimer 2400 creatinine 1.3 GFR 57 glucose 189 CPK 646 troponin 0.36 BNP 4610 drug screen positive for opiates, methadone, benzodiazepines, THC. CT PE protocol with right-sided peribronchial thickening no PE. Patient improved greatly throughout his emergency department stay, at this time patient on nasal cannula saturating well oriented x4 speech clear area. Patient was admitted for further evaluation and treatment. Hospital Course: Patient presented with acute hypoxic, hypercapnic respiratory failure secondary to accidental benzodiazepine/opioid/methadone overdose. This was further complicated with right-sided aspiration pneumonia. Patient has chronic pain and uses multiple medications for pain. Patient admits taking his 's medication at times. Patient was treated in the course of his stay. Patient improved. Patient no longer requiring oxygen. Chest x-ray shows improvement. Patient had elevated troponin likely ischemic demand. Patient was seen and evaluated by cardiology. No intervention is recommended at this time. At discharge patient without significant shortness of breath. At discharge patient will continue with Augmentin 500 mg 1 pill twice daily for 7 days for his aspiration pneumonia. Will also be provided albuterol 2 puffs 3 times a day as needed for shortness of breath. Patient educated on chronic pain and other medications including benzodiazepines and methadone. Cessation education on THC also gianni mmended. It is further recommended that the patient keep his medication separate from his . Recommend to use a pillbox to help coordinate and better plan for his medications only. Recommend follow-up with his PCP to further monitor and address. Recommend to recheck chest x-ray in 2 to 4 weeks to monitor resolution. Patient had elevated troponin likely from ischemic demand related to his acute respiratory failure. Patient was seen and evaluated by cardiology. No intervention is planned. Patient with multiple risk factors. Recommend follow- up with cardiology as an outpatient to further evaluate. Patient may require outpatient cardiac stress tests or intervention to further address in the future. Patient with history of diverticulitis with prior complication requiring ostomy and midline abdominal incision currently with wound VAC. Patient will continue with wound VAC in place. Recommend follow-up with general surgery as directed. CT scan of the abdomen unremarkable at this time. Patient with chronic pain. Medications reviewed. Nurses report that he does not take any medications at this time for pain. He is getting some of these medications from his . Recommend to not take any medication for pain or anxiety especially from another person. Recommend to hold all pain medication, benzodiazepine, if with increased sedation. Recommend to use a pillbox to help coordinate his medications. Recommend follow-up with pain management or his PCP to wean off all pain medication and benzodiazepine. Patient with hyperglycemia. Patient with prediabetes. Recommend to recheck hemoglobin A1c every 3 to 6 months to monitor his progress. This can be done with the help of his PCP. Patient with tobacco abuse. Tobacco cessation provided. Will provide nicotine patch. Patient with underlying GERD. Will recommend to continue Protonix 40 mg daily. THC use. Recommend THC cessation. Patient may continue with folic acid 1 mg daily and thiamine 100 mg daily. Patient may have underlying obstructive sleep apnea. Recommend follow-up with pulmonology as an outpatient to further evaluate. Patient may require sleep study to further address and treat. Vital Signs/Physical Exam: Temp Pulse Resp BP Pulse Ox 98.4 F 91 H 19 153/80 H 96 08/28/20 00:00 08/28/20 00:00 08/28/20 00:00 08/28/20 00:00 08/28/20 00:00 General: Alert, In no apparent distress, Oriented x3, Cooperative HEENT: Atraumatic Neck: Supple Respiratory: Clear to auscultation bilaterally, Normal air movement Cardiovascular: Normal pulses, Regular rate/rhythm Gastrointestinal: Normal bowel sounds, No tenderness, No masses, No rebound, No guarding, Other (Ostomy in place. Wound VAC in place.) Musculoskeletal: No erythema, No tenderness, No warmth Integumentary: No tenderness/swelling Neurological: Normal speech, Normal strength at 5/5 x4 extr, Normal tone, Normal affect Laboratory Data at Discharge: WBC 9.30 K/uL (4.3-10.9) D 08/28/20 03:18 Hgb 11.9 g/dL (13.6-17.9) L 08/28/20 03:18 Hct 35.7 % (39.6-49.0) L 08/28/20 03:18 Plt Count 238 K/uL (152-406) 08/28/20 03:18 PT 13.0 SECONDS (9.5-12.5) H 08/26/20 16:50 INR 1.13 08/26/20 16:50 APTT 29.4 SECONDS (24.3-36.9) 08/26/20 16:50 Sodium 140 mmol/L (136-145) 08/28/20 03:18 Potassium 3.4 mmol/L (3.5-5.1) L 08/28/20 03:18 BUN 8 mg/dL (7-18) 08/28/20 03:18 Creatinine 0.72 mg/dL (0.55-1.3) 08/28/20 03:18 Glucose 101 mg/dL (74-106) 08/28/20 03:18 Magnesium 2.0 mg/dL (1.8-2.4) 08/28/20 03:18 Total Bilirubin 0.5 mg/dL (0.2-1.0) 08/28/20 03:18 AST 66 U/L (15-37) H 08/28/20 03:18 ALT 57 U/L (12-78) 08/28/20 03:18 Alkaline Phosphatase 74 U/L (45-117) 08/28/20 03:18 Troponin I 0.54 ng/mL (0.0-0.045) H* 08/27/20 03:26 Triglycerides 80 mg/dL (<150) 08/27/20 03:26 Cholesterol 129 mg/dL (<200) 08/27/20 03:26 HDL Cholesterol 37 mg/dL (40-60) L 08/27/20 03:26 Cholesterol/HDL Ratio 3.49 08/27/20 03:26 Lipase 169 U/L (73-393) 08/26/20 16:50 Home Medications: Albuterol Inhaler [Ventolin Inhaler*] 2 puff IH TID PRN #1 hfa.aer.ad 08/28/20 Amoxicillin/Potassium Clav [Augmentin 500-125 Tablet] 1 each PO BID #14 tablet 08/28/20 Folic Acid 1 mg PO DAILY #90 tablet 08/28/20 Nicotine [Nicoderm] 21 mg TD DAILY #30 patch.td24 08/28/20 Pantoprazole [Protonix Tab*] 40 mg PO DAILYAC #30 tab 08/28/20 Thiamine HCl 100 mg PO DAILY #90 tablet 08/28/20 New Medications: Amoxicillin/Potassium Clav [Augmentin 500-125 Tablet] 1 each PO BID #14 tablet Folic Acid 1 mg PO DAILY #90 tablet Nicotine [Nicoderm] 21 mg TD DAILY #30 patch.td24 Pantoprazole [Protonix Tab*] 40 mg PO DAILYAC #30 tab Thiamine HCl 100 mg PO DAILY #90 tablet Albuterol Inhaler [Ventolin Inhaler*] 2 puff IH TID PRN #1 hfa.aer.ad PRN Reason: Shortness Of Breath Physician Discharge Instructions: Patient presented with acute hypoxic, hypercapnic respiratory failure secondary to accidental benzodiazepine/opioid/methadone overdose. This was further complicated with right-sided aspiration pneumonia. Patient has chronic pain and uses multiple medications for pain. Patient admits taking his 's medication at times. Patient was treated in the course of his stay. Patient improved. Patient no longer requiring oxygen. Chest x-ray shows improvement. Patient had elevated troponin likely ischemic demand. Patient was seen and evaluated by cardiology. No intervention is recommended at this time. At discharge patient without significant shortness of breath. At discharge patient will continue with Augmentin 500 mg 1 pill twice daily for 7 days for his aspiration pneumonia. Will also be provided albuterol 2 puffs 3 times a day as needed for shortness of breath. Patient educated on chronic pain and other medications including benzodiazepines and methadone. Cessation education on THC also recommended. It is further recommended that the patient keep his medication separate from his . Recommend to use a pillbox to help coordinate and better plan for his medications only. Recommend follow-up with his PCP to further monitor and address. Recommend to recheck chest x-ray in 2 to 4 weeks to monitor resolution. Patient had elevated troponin likely from ischemic demand related to his acute respiratory failure. Patient was seen and evaluated by cardiology. No intervention is planned. Patient with multiple risk factors. Recommend follow- up with cardiology as an outpatient to further evaluate. Patient may require ou tpatient cardiac stress tests or intervention to further address in the future. Patient with history of diverticulitis with prior complication requiring ostomy and midline abdominal incision currently with wound VAC. Patient will continue with wound VAC in place. Recommend follow-up with general surgery as directed. CT scan of the abdomen unremarkable at this time. Patient with chronic pain. Medications reviewed. Nurses report that he does not take any medications at this time for pain. He is getting some of these medications from his . Recommend to not take any medication for pain or anxiety especially from another person. Recommend to hold all pain medication, benzodiazepine, if with increased sedation. Recommend to use a pillbox to help coordinate his medications. Recommend follow-up with pain management or his PCP to wean off all pain medication and benzodiazepine. Patient with hyperglycemia. Patient with prediabetes. Recommend to recheck hemoglobin A1c every 3 to 6 months to monitor his progress. This can be done with the help of his PCP. Patient with tobacco abuse. Tobacco cessation provided. Will provide nicotine patch. Patient with underlying GERD. Will recommend to continue Protonix 40 mg daily. THC use. Recommend THC cessation. Patient may continue with folic acid 1 mg daily and thiamine 100 mg daily. Patient may have underlying obstructive sleep apnea. Recommend follow-up with pulmonology as an outpatient to further evaluate. Patient may require sleep study to further address and treat. Diet: AHA Activity: Ad iirs Followup: Unknown,U [Primary Care Provider] - Time spent managing pt's care (in minutes): 55
[2020-08-28] MEDS ORDERED: PANTOPRAZOLE 40MG TABLET PO SCH (06:30)
--- NOTE | 2020-08-28 08:20 | RAD REPORT ---
EXAM DESCRIPTION: Isabel Single View08/28/2020 5:39 am CLINICAL HISTORY: Chest pain COMPARISON: August 26, 2020 FINDINGS: No significant change in the mild bibasilar lung opacities. Right peribronchial thickening unchanged. Heart remains enlarged
--- NOTE | 2020-08-28 08:20 | ECHO ---
HEIGHT: 5 ft 10 in WEIGHT: 220 lb 0 oz DATE OF STUDY: 08/27/[address]: Sher Bhatia DO 2-DIMENSIONAL: YES M.MODE: YES DOPPLER: YES COLOR FLOW: YES TDS: YES PORTABLE: DEFINITY: BUBBLE STUDY: DIAGNOSIS: ACUTE RESPIRATORY FAILURE, ELEVATED TROPONIN CARDIAC HISTORY: CATHERIZATION: NO SURGERY: NO PROSTHETIC VALVE: NO PACEMAKER: NO MEASUREMENTS (cm) DIASTOLIC (NORMALS) SYSTOLIC (NORMALS) IVSd 1.1 (0.6-1.2) LA Diam 3.9 (1.9-4.0) LVEF 57% LVIDd 4.8 (3.5-5.7) LVIDs 3.4 (2.0-3.5) %FS 30% LVPWd 1.2 (0.6-1.2) Ao Diam 2.9 (2.0-3.7) 2 DIMENSIONAL ASSESSMENT: RIGHT ATRIUM: NORMAL LEFT ATRIUM: NORMAL RIGHT VENTRICLE: NORMAL LEFT VENTRICLE: NORMAL TRICUSPID VALVE: NORMAL MITRAL VALVE: NORMAL PULMONIC VALVE: NORMAL AORTIC VALVE: NORMAL PERICARDIAL EFFUSION: NONE AORTIC ROOT: NORMAL LEFT VENTRICULAR WALL MOTION: NORMAL DOPPLER/COLOR FLOW: MILD TRICUSPID REGURGITATION COMMENTS: MILD TRICUSPID REGURGITATION - NORMAL RIGHT VENTRICULAR SYSTOLIC PRESSURE. NORMAL LEFT VENTRICULAR SIZE AND FUNCTION. NO EFFUSION. TECHNOLOGIST: SUMI VELAZQUEZ
[2020-08-28] MEDS: ENOXAPARIN 40 MG/0.4 ML SQ SCH (08:35)
[2020-08-28] MEDS ORDERED: POTASSIUM CL SA 10 MEQ TAB PO ONE ×2 (09:00→12:55)
[2020-08-28] MEDS ORDERED: THIAMINE HCL 100 MG TABLET PO SCH (09:00)
[2020-08-28] MEDS ORDERED: FOLIC ACID 1 MG TABLET PO SCH (09:00)
[2020-08-28 12:46] VITALS: BP 149/87
[2020-08-28 15:09] VITALS: O2SAT 96
[2020-08-28] MEDS: TRAMADOL HCL 50 MG TAB PO PRN (17:02)
[2020-08-28 17:40] VITALS: TEMP 98
--- NOTE | 2020-08-28 20:30 | CON ---
Date of Consultation: 08/27/2020 Reason For Consultation: Acute respiratory failure. History Of Present Illness: Mr. Ortiz is the patient who was admitted to Dr. Bhatia with multiple is sues including acute respiratory failure, drug overdose with opiates, marijuana and amphetamines on h is urinalysis and has improved after using Narcan. Not really have any chest pain. He did have slig htly elevated troponin of 0.54. His D-dimer was 2400. His BNP was 4610. Chest x-ray showed pneumon itis. Creatinine was 1.31. He was hypoxic with a PO2 of 66, pCO2 of 57, pH of 7.34. He came into [facility] mostly unresponsive. Past Medical History: Include chronic pain. Medications: At home are none. Allergies: NONE. Review of Systems: Negative. Social History: Negative. Family History: Noncontributory. Physical Examination: General: He was alert, oriented x3 when I saw him. Vital Signs: Stable, afebrile. Sinus rhythm. HEENT: Negative. Neck: Supple without any bruit, lymphadenopathy, JVD, or thyromegaly. Chest: Clear to auscultation and percussion. Cardiac: Revealed a regular rhythm and rate. No murmurs, gallops, or rubs. Abdomen: Benign. Extremities: Revealed no clubbing, cyanosis, or edema. Diagnostic Data: As stated earlier. Impression And Plan: 1.Respiratory failure secondary to opiates, amphetamine and benzodiazepine. Improved on Narcan. 2.Possible pneumonitis. 3.Elevated D-dimer, troponin and BNP secondary to hypoxia and hypercapnia and demand ischemia. I think Mr. Ortiz deserves to have a 2D echocardiogram to rule out a cardiomyopathy that is normal. I will sign off his case. Continue present regimen for now. NB/MODL Voice ID: [id number] Report ID: [id number]
== END 2020-08-28 17:52 | disposition home health service (06) | DRG 917 ==
LOC: ER 16:36 → ERHOLD 20:13 → 2ND 20:46
PROVIDERS: ADMIT Family Medicine; ATTEND Family Medicine
DX: T42.4X1A Poisoning by benzodiazepines, accidental (unintentional), initial encounter (principal); J96.02 Acute respiratory failure with hypercapnia; J96.01 Acute respiratory failure with hypoxia; J69.0 Pneumonitis due to inhalation of food and vomit; G92 Toxic encephalopathy; I24.8 Other forms of acute ischemic heart disease; T40.2X1A Poisoning by other opioids, accidental (unintentional), initial encounter; T40.3X1A Poisoning by methadone, accidental (unintentional), initial encounter; Y92.008 Other place in unspecified non-institutional (private) residence as the place of occurrence of the external cause; K57.90 Diverticulosis of intestine, part unspecified, without perforation or abscess without bleeding; Z93.3 Colostomy status; G89.29 Other chronic pain; R73.03 Prediabetes; R73.9 Hyperglycemia, unspecified; E66.9 Obesity, unspecified; Z68.31 Body mass index [BMI] 31.0-31.9, adult; F17.210 Nicotine dependence, cigarettes, uncomplicated; K21.9 Gastro-esophageal reflux disease without esophagitis; F12.90 Cannabis use, unspecified, uncomplicated; Z20.822 Contact with and (suspected) exposure to COVID-19
CPT/HCPCS: 36415; 71045; 71275; 74018; 74177; 80048; 80053; 80061; 80076; 80307; 80320; 80329; 81003; 81015; 82550; 82805; 83690; 83735; 83880; 84132; 84145; 84439; 84443; 84484; 85025; 85379; 85610; 85730; 87040; 87086; 87088; 93005; 93306; 94010; 94660; 94760; 96365; 96374; 96375; 99284; 99291; 99292; J1650; J2310; J2405; J2543; J3480; J7030; Q9967; U0003

== ENCOUNTER 2021-03-27 17:47 | Emergency (ER) | payer OTHER ==
--- OUTSIDE RECORDS SUMMARY | 2021-03-27 17:49 | XMS REPORT | Continuity of Care Document ---
:1965 Author Organization [facility] t Address [address] [place] [address] Care Team Providers Name Role Phone Soraya Primary Care Physician AVERY Attending Clinician Unavailable MD AVERY J. Attending Clinician Unavailable Ledy MOJICA Attending Clinician Unavailable Kandi Zuniga Attending Clinician MD AVERY J. Admitting Clinician Unavailable AVERY Admitting Clinician Unavailable Payers Payer Name Policy Type Policy Number Effective Date Expiration Date Genevieve BASS [place] [id number] 2021 MEDICAID STAR+PLUS 00:00:00 [facility] MEDICAID STAR [id number] 2019 00:00:00 Problems Condition Condition Condition Status Onset Resolution Last Treating Co mments Source Name Details Category Date Date Treatment Clinician Date No known No known Disease [place] active active Health problems problems Allergies, Adverse Reactions, Alerts Allergy Allergy Status Severity Reaction(s) Onset Inactive Treating Comm ents Source Name Type Date Date Clinician NO KNOWN Drug Active Univers ALLERGIE Class ity of S [facility] Social History Social Habit Start Date Stop Date Quantity Comments Source History [facility] Alcohol Std Drinks History [facility] Health Alcohol Binge History [facility] Health Alcohol Comment Exposure to Not sure University of SARS-CoV-2 [facility] Branch Alcohol intake 2020-12-05 2020-12-05 Lifetime [facility] 00:00:00 00:00:00 non-drinker (finding) Tobacco use and 2020-12-04 2020-12-04 Smokeless tobacco [facility] exposure 00:00:00 00:00:00 non-user History SDOH 2020-12-04 2020-12-04 1 [facility] Alcohol Frequency 00:00:00 00:00:00 Sex Ass[birth year] [place] [facility] 00:00:00 00:00:00 Smoking Status Start Date Stop Date Source Smokes tobacco daily 2020-12-04 00:00:00 [facility] Unknown if ever smoked [facility] Branch Medications Ordered Filled Start Stop Current Ordering Indication Dosage Frequency Signature Comments Components Source Medication Medication Date Date Medication? Clinician (SIG) Name Name venkata 2020-02- No [id number] 4000mL Take 4,000 UT e glycol 02-16 11-02 mL by [employer] (Plored) 00:00: 04:59 mouth 1 236 g 00 :00 (one) time solution for 1 dose. Follow physicians instructio ns given in office. Use the day before colonoscop y. gabapentin 2020-02 Yes gabapentin U T (Neurontin) 0-19 400 mg Health 400 MG 14:11: capsule capsule 48 TAKE 1 CAPSULE BY MOUTH FOUR TIMES DAILY gabapentin 2020-02 Yes gabapentin U T (Neurontin) 0-19 400 mg Health 400 MG 14:11: capsule capsule 48 TAKE 1 CAPSULE BY MOUTH FOUR TIMES DAILY HYDROcodone 2020- No 1{tbl} 1 tablet, Univers -acetaminop 08-14 Oral, ONCE i ty of hen (NORCO) 04:45: 03:43 NOW, 1 Grey as 10-325 mg 00 :00 dose, Mon Medic al tablet 1 08/13/20 at [facility] h tablet 2345, Routine cephALEXin Yes 500mg Take 1 Univ ers (KEFLEX) 1-16 capsule by ity o f 500 mg 00:00: mouth 4 [place] capsule 00 (four) Medical times Branch daily. sulfamethox Yes 1{tbl} Take 1 Un britton azole-trime 1-16 tablet by ity of thoprim 00:00: mouth [place] 800-160 mg 00 every 12 Medic al per tablet (twelve) Branc h hours. traMADOL 2017-0 Yes 50mg Take 1 Univers (ULTRAM) 50 1-16 tablet by ity of mg tablet 00:00: mouth [place] 00 every 6 Medical (six) Branch hours as needed for Pain (scale 7-10). Immunizations Ordered Filled Immunization Date Status Comments Sour e Immunization Name Name Td 2016-03-03 Completed [facility] 00:00:00 [facility] Vital Signs Vital Name Observation Time Observation Value Comments Source Systolic blood 2020-12-04 19:11:00 178 mm[Hg] [facility] pressure Diastolic blood 2020-12-04 19:11:00 89 mm[Hg] [facility] pressure Heart rate 2020-12-04 19:11:00 100 /min [facility] Body temperature 2020-12-04 19:11:00 37.17 [facility] Respiratory rate 2020-12-04 19:11:00 16 /min [facility] Body height 2020-12-04 19:11:00 177.8 cm [facility] Body weight 2020-12-04 19:11:00 124.739 kg [facility] BMI 2020-12-04 19:11:00 39.46 [facility] 2020-08-14 03:08:00 121 mm[Hg] Univer sity [facility] Diastolic blood 2020-08-14 03:08:00 86 mm[Hg] [facility] rate 2020-08-14 03:08:00 95 /min [facility] Body temperature 2020-08-14 03:08:00 36.56 Apple [facility] Res[facility] rate 2020-08-14 03:08:00 16 /min [facility] Body height 2020-08-14 03:08:00 177.8 cm [facility] Body weight 2020-08-14 03:08:00 122.018 kg [facility] BMI 2020-08-14 03:08:00 38.60 kg/m2 [facility] Oxygen saturation in 2020-08-14 03:08:00 98 /min [facility] blood by [facility] Pulse oximetry Branch Systolic blood 2020-08-14 03:08:00 121 mm[Hg] Univer sity of pressure [facility] Diastolic blood 2020-08-14 03:08:00 86 mm[Hg] [facility] Heart rate 2020-08-14 03:08:00 95 /min [facility] Body temperature 2020-08-14 03:08:00 36.56 Apple [facility] Respiratory rate 2020-08-14 03:08:00 16 /min [facility] Body height 2020-08-14 03:08:00 177.8 cm [facility] Body weight 2020-08-14 03:08:00 122.018 kg [facility] BMI 2020-08-14 03:08:00 38.60 kg/m2 [facility] Oxygen saturation in 2020-08-14 03:08:00 98 /min [facility] Arterial blood by [facility] Pulse oximetry [place] Procedures Procedure Date / Time Performed Performing Clinician Mariposa e COMP. METABOLIC PANEL 2020-08-14 03:47:00 Ana Roberts [facility] ([id number]) [facility] CBC WITH DIFF 2020-08-14 03:47:00 Ana Roberts Bertha o f [facility] NOTICE OF PRIVACY 2020-08-14 02:53:31 Doctor Unassigned, No [facility] Name [facility] CONSENT/REFUSAL FOR 2020-08-14 02:53:16 Doctor Unassigned, No [facility] DIAGNOSIS AND Name [facility] TREATMENT Encounters Start End Encounter Admission Attending Care Care Encounter Source Date/Time Date/Time Type Type Clinicians Facility Department ID 2021-03-12 Outpatient [facility] [id number] [place] 13:20:04 [facility] 2020-12-04 [facility] [id number] [place] 15:02:25 [facility] 2020-12-25 2020-12-25 [id number] [place] 00:00:00 00:00:00 LUIS [facility] 2020-12-17 2020-12-17 Arina Gomez [id number] [place] 00:00:00 00:00:00 Only Arina Villafana [id number] Health [id number] 2020-12-04 2020-12-04 Office ALVAREZ Varela [id number] [place] 14:07:26 15:10:45 Visit Luis MILLER [id number] He alth [id number] [id number] 2020-08-13 2020-08-14 Emergency [facility] [id number] 22:12:00 00:10:00 Ana Skelton [id number] [place] [id number] [place] [id number] 2020-08-13 2020-08-14 Emergency [facility] [id number] [facility] 22:12:00 00:10:00 Ana Skelton [id number] i ty of [place] 4.2.7.2.686 [facility] [id number] [facility] 084 Branch 2020-08-13 2020-08-13 Emergency X [facility] ERT [id number] Univers 21:52:00 21:52:00 ity [facility] Results Test Description Test Time Test Comments Results Result Comments Source SARS-CoV-2 (COVID-19) RNA [Presence] in Respiratory sp ecimen by 2020-12-25 07:59:39 LILIANA with probe detection Test Item Value Reference Range Interpretation Comme nts SARS-CoV-2 (COVID-19) RNA [Presence] in Respiratory Not detected No t-Detected specimen by LILIANA with probe detection (test code = 87550-8) Whether patient is employed in a healthcare setting (test code = 30487-1) Whether the patient has symptoms related to condition of interest (test code = 71709-9) Patient was hospitalized because of this condition (test code = 94032-1) Whether the patient was admitted to intensive care unit (ICU) for condition of interest (test code = 18040-5) Whether patient resides in a congregate care setting (test code = 57202-7) COMP. METABOLIC PANEL (26316)2020-08-14 04:36:13 Test Item Value Reference Range Interpretation Comments NA (test code = 140 mmol/L 135-145 1970557340) K (test code = 3.8 mmol/L 3.5-5.0 3890488403) CL (test code = 105 mmol/L 98-108 0657390488) CO2 TOTAL (test code = 28 mmol/L 23-31 5998405984) AGAP (test code = 2-16 6945831646) BUN (test code = 9 mg/dL 7-23 1789440473) GLUCOSE (test code = 112 mg/dL 70-110 H 7572765250) CREATININE (test code = 0.76 mg/dL 0.60-1.25 2106764395) TOTAL BILI (test code = 0.7 mg/dL 0.1-1.3 9963857274) CALCIUM (test code = 9.1 mg/dL 8.6-10.6 2446647824) T PROTEIN (test code = 7.5 g/dL 6.3-8.2 0492437047) ALBUMIN (test code = 3.9 g/dL 3.5-5.0 2611087370) ALK PHOS (test code = 85 U/L 34-122 2047681780) ALTv (test code = 9 U/L 5-50 1742-6) AST(SGOT) (test code = 24 U/L 13-40 3016828900) eGFR (test code = mL/min/1.73m2 2094603296) SHAREE (test code = SHAREE) Association of Glomerular Filtration Rate (GFR) and Staging of Kidney Disease* + --+ --+ ------+| GFR (mL/min/1.73 m2) ?| With Kidney Damage ?| ?Without Kidney Damage+ --------+ --------+ +| ?>90 ?| ?Stage one ?| ? Normal ?+ ---+ ---+ -------+| ?60-89 ?| ?Stage two ?| ? Decreased GFR ? + --+ --+ ------+| ?30-59 ?| ?Stage three ?| ? Stage three ? + --+ --+ ------+| ?15-29 ?| ?Stage four ? | ? Stage four ?+ ---+ ---+ -------+| ?<15 (or dialysis) ? ?| ?Stage five ? | ? Stage five ?+ ---+ ---+ -------+ *Each stage assumes the associated GFR level has been in effect for at least three months. ?Stages 1 to 5, with or without kidney disease, indicate chronic kidney disease. Notes: Determination of stages one and two (with eGFR >59mL/min/1.73 m2) requires estimation of kidney damage for at least three months as defined by structural or functional abnormalities of the kidney, manifested by either:Pathological abnormalities or Markers of kidney damage (including abnormalities in the composition of the blood or urine or abnormalities in imaging tests). Lab Interpretation Abnormal (test code = 85376-4) [facility] WITH [id number] 04:12:34 Test Item Value Reference Range Interpretation Comments WBC (test code = See_Comment [Automated 2157-2) message] The sy stem which generated this result transmitted reference range : 4.20 - 10.70 10*3/?L. The reference range was not used to interpret this result as normal/abnormal . RBC (test code = See_Comment [Automated 013-8) message] The sy stem which generated this result transmitted reference range : 4.26 - 5.52 10*6/?L. The reference range was not used to interpret this result as normal/abnormal . HGB (test code = 13.0 g/dL 12.2-16.4 718-7) HCT (test code = 41.2 % 38.4-49.3 4544-3) MCV (test code = 96.7 fL 81.7-95.6 H 787-2) MCH (test code = 30.5 pg 26.1-32.7 785-6) MCHC (test code = 31.6 g/dL 31.2-35.0 786-4) RDW-SD (test code = 47.3 fL 38.5-51.6 98651-5) RDW-CV (test code = 13.2 % 12.1-15.4 788-0) PLT (test code = See_Comment [Automated 960-3) message] The sy stem which generated this result transmitted reference range : 150 - 328 10*3/ ?L. The reference r marleen was not used to interpret this result as normal/abnormal . MPV (test code = 9.9 fL 9.8-13.0 30037-7) NRBC/100 WBC (test See_Comment [Automat ed code = 9468981705) message] The system which generated this result transmitted reference range : 0.0 - 10.0 /100 WBCs. The refer ence range was not u sed to interpret th is result as normal/abnormal . NRBC x10^3 (test code <0.01 See_Comment [Auto mated = 7722018087) message] The s ystem which generated this result transmitted reference range : 10*3/?L. The reference range was not used to interpret this result as normal/abnormal . GRAN MAT (NEUT) % 71.3 % (test code = 770-8) IMM GRAN % (test code 0.40 % = 0044092979) LYMPH % (test code = 17.4 % 736-9) MONO % (test code = 8.3 % 5905-5) EOS % (test code = 2.0 % 713-8) BASO % (test code = 0.6 % 706-2) GRAN MAT x10^3(ANC) 5.94 10*3/uL 1.99-6.95 (test code = 0491114705) IMM GRAN x10^3 (test 0.03 10*3/uL 0.00-0.06 code = 1235311747) LYMPH x10^3 (test code 1.45 10*3/uL 1.09-3.23 = 731-0) MONO x10^3 (test code 0.69 10*3/uL 0.36-1.02 = 742-7) EOS x10^3 (test code = 0.17 10*3/uL 0.06-0.53 711-2) BASO x10^3 (test code 0.05 10*3/uL 0.01-0.09 = 704-7) Lab Interpretation Abnormal (test code = 39208-9) [facility]"
[2021-03-27] MEDS ORDERED: dexAMETHasone 10 MG/ML VIAL ONE (19:20)
[2021-03-27] MEDS ORDERED: KETOROLAC 30 MG/ML INJ ONE (19:20)
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
[2021-03-27 19:57] VITALS: TEMP 97.5; O2SAT 99
[2021-03-27 19:58] VITALS: BP 147/87
== END 2021-03-27 19:41 | disposition home or self-care (01) ==
LOC: ER 17:47
DX: S43.492A Other sprain of left shoulder joint, initial encounter (principal)
CPT/HCPCS: 96372; 99283; J1100

== ENCOUNTER 2021-04-18 18:11 | Emergency (ER) | payer OTHER ==
--- OUTSIDE RECORDS SUMMARY | 2021-04-18 18:14 | XMS REPORT | Continuity of Care Document ---
:1965 Author Organization [facility] t Address [address] [place] [address] Care Team Providers Name Role Phone ALFONZO Primary Care Physician Unavailable AVERY Attending Clinician Unavailable Kellie CARROLL Attending Clinician Unavailable Carly TYSON L Attending Clinician MD AVERY J. Attending Clinician Unavailable Ledy MOJICA Attending Clinician Unavailable Kandi Zuniga Attending Clinician MD AVERY J. Admitting Clinician Unavailable AVERY Admitting Clinician Unavailable Payers Payer Name Policy Type Policy Number Effective Date Expiration Date Genevieve mcdonald [facility] [id number] 2021 MEDICAID STAR+[id number] 00:00:00 [facility] MEDICAID STAR [id number] 2019 00:00:00 [facility] [id number] 2021 MEDICAID 00:00:00 Problems Condition Condition Condition Status Onset Resolution Last Treating Co mments Source Name Details Category Date Date Treatment Clinician Date No known No known Disease [place] active active Health problems problems Allergies, Adverse Reactions, Alerts Allergy Allergy Status Severity Reaction(s) Onset Inactive Treating Comm ents Source Name Type Date Date Clinician NO KNOWN Drug Active Univers ALLERGIE Class ity of S [facility] Social History Social Habit Start Date Stop Date Quantity Comments Source Exposure to Not sure University of SARS-CoV-2 [place] [facility] (event) [facility] History [facility] Alcohol Std Drinks History [facility] Alcohol Binge History [facility] Alcohol Comment Tobacco use and 2021-04-11 2021-04-11 Never used Universit y of exposure 00:00:00 00:00:00 [facility] Alcohol intake 2020-12-05 2020-12-05 Lifetime [facility] 00:00:00 00:00:00 non-drinker (finding) History [facility] 2020-12-04 2020-12-04 1 [facility] Alcohol Frequency 00:00:00 00:00:00 Sex Ass[birth year] At [birth year] [facility] 00:00:00 00:00:00 Smoking Status Start Date Stop Date Source Smoker, current status 2021-04-11 00:00:00 [facility] unknown Branch Smokes tobacco daily 2020-12-04 00:00:00 [facility] th Medications Ordered Filled Start Stop Current Ordering Indication Dosage Frequency Signature Comments Components Source Medication Medication Date Date Medication? Clinician (SIG) Name Name polyethylen 2020-02- No [id number] 4000mL Take 4,000 [place] e glycol 02-16 mL by [employer] ([employer]) 00:00: 04:59 mouth 1 236 g 00 [...] 1 CAPSULE BY MOUTH FOUR TIMES DAILY cephALEXin Yes 500mg Take 1 Univ ers (KEFLEX) 1-16 capsule by ity o f 500 mg 00:00: mouth 4 [place] capsule 00 (four) Medical times Branch daily. sulfamethox Yes 1{tbl} Take 1 Un britton azole-trime 1-16 tablet by ity of thoprim 00:00: mouth [place] 800-160 mg 00 every 12 Medic al per tablet (twelve) Branc h hours. traMADOL Yes 50mg Take 1 Univers (ULTRAM) 50 1-16 tablet by ity of mg tablet 00:00: mouth [place] [id number] every 6 Medical (six) Branch hours as needed for Pain (scale 7-10). Immunizations Ordered Filled Immunization Date Status Comments [facility] e Immunization Name Name Td 2016-03-03 Completed [facility] 00:00:00 [facility] Vital Signs Vital Name Observation Time Observation Value Comments Source Systolic blood 2021-04-11 14:51:00 140 mm[Hg] [facility] Diastolic blood 2021-04-11 14:51:00 90 mm[Hg] Unive rs[facility] Heart rate 2021-04-11 14:51:00 82 /min [facility] Body height 2021-04-11 14:50:00 177.8 cm [facility] Body weight 2021-04-11 14:50:00 123.832 kg [facility] BMI 2021-04-11 14:50:00 39.17 kg/m2 [facility] Oxygen saturation in 2021-04-11 14:50:00 99 /min [facility] blood by [facility] Pulse oximetry Branch Systolic blood 2020-12-04 19:11:00 178 mm[Hg] [facility] pressure Diastolic blood 2020-12-04 19:11:00 89 mm[Hg] [facility]th pressure Heart rate 2020-12-04 19:11:00 100 /min [facility] Body temperature 2020-12-04 19:11:00 37.17 [facility] Respiratory rate 2020-12-04 19:11:00 16 /min [facility] Body height 2020-12-04 19:11:00 177.8 cm [facility] Body weight 2020-12-04 19:11:00 124.739 kg [facility] BMI 2020-12-04 19:11:00 39.46 kg/m2 [facility] Procedures This patient has no known procedures. Encounters Start End Encounter Admission Attending Care Care Encounter Source Date/Time Date/Time Type Type Clinicians Facility Department ID 2021-03-12 Outpatient AVERY [facility] [id number] [place] 13:20:04 [facility] 2020-12-04 Outpatient AVERY [facility] [id number] [place] 15:02:25 [facility] 2021-04-24 2021-04-24 [id number] Univers 13:00:00 13:00:00 [facility]LEJANDRO [id number] [facility] 2021-04-11 2021-04-11 [id number] [facility] 08:55:00 23:59:00 [facility]ANDR[facility] 2021-04-11 2021-04-11 [facility] [id number] [facility] 08:45:00 09:26:32 Visit Alejandro RAQUEL [id number] Brina [id number] Grey as INGRID?BLEA [id number] [address] OFFICE [facility] 2020-12-25 2020-12-25 [facility] [id number] [place] 00:00:00 00:00:00 LUIS [facility] 2020-12-17 2020-12-17 Orders Arina Villafana HOGAN [id number] [place] 00:00:00 00:00:00 Only Arina Villafana [id number] Health [id number] 2020-12-04 2020-12-04 Office ALVAREZ Larkin SAMIRA [id number] [place] 14:07:26 15:10:45 Visit Luis MILLER [id number] He [facility] [id number] 2020-08-13 2020-08-14 Emergency [facility] [id number] 22:12:00 00:10:00 Ana Skelton [id number] Index [id number] [place] [id number] Results Test Description Test Time Test Comments Results Result Comments Source SARS-CoV-2 (COVID-19) RNA [Presence] in Respiratory sp ecimen by 2020-12-25 07:59:39 LILIANA with probe detection Test Item Value Reference Range Interpretation Comme nts SARS-CoV-2 (COVID-19) RNA [Presence] in Respiratory Not detected No t-Detected specimen by LILIANA with probe detection (test code = 06814-3) Whether patient is employed in a healthcare setting (test code = 59361-5) Whether the patient has symptoms related to condition of interest (test code = 19799-8) Patient was hospitalized because of this condition (test code = 73470-4) Whether the patient was admitted to intensive care unit (ICU) for condition of interest (test code = 33147-5) Whether patient resides in a congregate care setting (test code = 15658-0)
[2021-04-18] MEDS ORDERED: KETOROLAC 30 MG/ML INJ ONE (20:52)
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
--- NOTE | 2021-04-18 22:04 | RAD REPORT ---
EXAM DESCRIPTION: RAD - Shoulder Left 2 View - 04/18/2021 9:28 pm CLINICAL HISTORY: PAIN COMPARISON: No comparisons TECHNIQUE: Internal and external rotation views of the left shoulder were obtained. FINDINGS: There is no fracture or dislocation. No spurring or significant degenerative change at the AC joint. Acromial humeral joint space is normal. No abnormal soft tissue calcifications. IMPRESSION: Negative two-view left shoulder examination for acute findings.
[2021-04-18 23:39] VITALS: TEMP 98.8
[2021-04-18 23:41] VITALS: BP 123/99; O2SAT 98
== END 2021-04-18 22:11 | disposition home or self-care (01) ==
LOC: ER 18:11
DX: M25.512 Pain in left shoulder (principal); F17.210 Nicotine dependence, cigarettes, uncomplicated
CPT/HCPCS: 96372; 99283

== ENCOUNTER 2021-08-19 19:40 | Emergency (ER) | payer OTHER ==
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
[2021-08-19] MEDS ORDERED: ONDANSETRON 4 MG (ODT) TAB ONE (20:41)
[2021-08-19] MEDS ORDERED: MORPHINE 4 MG/ML SYR ONE (20:41)
[2021-08-19 21:07] VITALS: BP 131/81; TEMP 98.7; O2SAT 99
== END 2021-08-19 21:00 | disposition home or self-care (01) ==
LOC: ER 19:40
DX: S46.012A Strain of muscle(s) and tendon(s) of the rotator cuff of left shoulder, initial encounter (principal); M25.512 Pain in left shoulder
CPT/HCPCS: 96372; 99283; Q0162

== ENCOUNTER 2022-06-13 15:48 | Emergency (ER) | payer OTHER ==
--- OUTSIDE RECORDS SUMMARY | 2022-06-13 16:01 | XMS REPORT | Continuity of Care Document ---
:1965 Author Organization [facility] t Address [address] [place] [address] Care Team Providers Name Role Phone Soraya Chantel Primary Care Physician LUIS VARELA Attending Clinician Unavailable Laurent Rosas MD Attending Clinician ALEJANDRO CARROLL Attending Clinician Unavailable Alejandro Carroll MD Attending Clinician Doctor Unassigned, [place] Attending Clinician Unavailable MD LUIS VARELA Attending Clinician Unavailable Arina Villafana MA Attending Clinician Unavailable Ana Zuniga Attending Clinician LUIS VARELA Admitting Clinician Unavailable MD AZAR BLAIR Admitting Clinician Unavailable ALEJANDRO CARROLL Admitting Clinician Unavailable MD LUIS VARELA Admitting Clinician Unavailable Payers Payer Name Policy Type Policy Number Effective Date Expiration Date S ource [facility] MEDICAID STAR [id number] 2019 2021 00:00:00 00:00:00 SHE[place]IA [place] [id number] 2021 MEDICAID STAR+PLUS 00:00:00 [employer] [id number] 2021 [place] 00:00:00 Problems Condition Condition Condition Status Onset Resolution Last Treating Co mments Source Name Details Category Date Date Treatment Clinician Date Encounter Encounter Disease Active Met malloryi for for 02-19 attention attention 00:00: Hosp noreen to to 00 l colostomy colostomy No known No known Disease [place] active active Health problems problems Allergies, Adverse Reactions, Alerts Allergy Allergy Status Severity Reaction(s) Onset Inactive Treating Comm ents Source Name Type Date Date Clinician NO KNOWN Drug Active Univers ALLERGIE Class ity of S [facility] Social History Social Habit Start Date Stop Date Quantity Comments Source History of tobacco Cigarette Smoker [facility] use [facility] History SDOH [facility] al History SDLA [facility] Gender identity [facility] Sexual orientation [facility] Exposure to 2022-04-07 2022-04-17 Not sure [facility] SARS-CoV-2 (event) 00:00:00 11:00:00 History of Social 2022-02-24 2022-02-[address] function 00:00:00 00:00:00 Hospital Alcohol intake 2022-02-21 2022-02-21 Ex-drinker [facility] 00:00:00 00:00:00 (finding) Hospital Tobacco use and 2022-02-19 2022-02-19 Smokeless [facility] exposure 00:00:00 00:00:00 tobacco non-user Hospital Cigarettes smoked 2022-02-19 2022-02-[address] current (pack per 00:00:00 00:00:00 Hospita l day) - Reported Cigarette 2022-02-19 2022-02-19 [facility] pack-years 00:00:00 00:00:00 Hospital Alcohol Comment 2022-02-19 2022-02-19 social [facility] 00:00:00 00:00:00 Hospital Tobacco Comment 2022-02-14 2022-02-[address] 00:00:00 00:00:00 Hospital History SDOH 2020-12-25 2020-12-25 1 [facility] Alcohol Frequency 00:00:00 00:00:00 Hospita l Sex Assigned At [birth year] [facility] 00:00:00 00:00:00 Hospital Smoking Status Start Date Stop Date Source Smoker, current status 2021-04-11 00:00:00 [facility] Smokes tobacco daily 2020-12-04 00:00:00 [facility] Medications Ordered Filled Start Stop Current Ordering Indication Dosage Frequency Signature Comments Components Source Medication Medication Date Date Medication? Clinician (SIG) Name Name multivitami Yes 1{tbl} QD Take 1 Me thodi n tablet 1-[address] 12:10: mouth Hospita 02 daily. l multivitami Yes 1{tbl} QD Take 1 Me thodi n tablet 1-[address] 12:10: mouth Hospita 02 daily. l nicotine 2022- No 1{patch QD Place 1 Me thodi (NICODERM 02-24 } patch on st CQ) 7 mg/24 00:00: 05:59 the skin H ospita hr 00 :00 daily for l 30 days. nicotine 2022- No 1{patch QD Place 1 Me thodi (NICODERM 02-24 } patch on st CQ) 7 mg/24 00:00: 05:59 the skin H ospita hr 00 :00 daily for l 30 days. acetaminoph 2022- No 650mg Q6H Take 2 Me thodi en 02-[address] (TYLENOL) 00:00: 05:59 (650 mg Hosp noreen 325 MG 00 :00 total) by l tablet mouth every 6 (six) hours for 7 days. gabapentin 2022- No 300mg Q.[id number] Take 1 Methodi (NEURONTIN) 02-[id number] 300 mg 00:00: 05:59 3D (300 mg Hospita capsule 00 :00 total) by l mouth every 8 (eight) hours for 7 days. methocarbam 2022- No 750mg Q.[id number] Take 1 Methodi oL 02-[id number] (ROBAXIN) 00:00: 05:59 3D (750 mg Hosp noreen 750 MG 00 :00 total) by l tablet mouth every 8 (eight) hours for 7 days. sulfamethox 2022-2022- No 1{tbl} Q.5D Take 1 M ethodi azole-trime 02-[address] thoprim 00:00: 05:59 mouth 2 Hospit a (Bactrim 00 :00 (two) l DS) 800-160 times a mg per day for 7 tablet days. acetaminoph 2022- No 650mg Q6H Take 2 Me thodi en 02-[address] (TYLENOL) 00:00: 05:59 (650 mg Hosp noreen 325 MG 00 :00 total) by l tablet mouth every 6 (six) hours for 7 days. gabapentin 2022- No 300mg Q.[id number] Take 1 Methodi (NEURONTIN) 02-[id number] 300 mg 00:00: 05:59 3D (300 mg Hospita capsule 00 :00 total) by l mouth every 8 (eight) hours for 7 days. methocarbam 2022- No 750mg Q.[id number] Take 1 Methodi oL 02-[id number] (ROBAXIN) 00:00: 05:59 3D (750 mg Hosp noreen 750 MG 00 :00 total) by l tablet mouth every 8 (eight) hours for 7 days. sulfamethox 2022-2022- No 1{tbl} Q.5D Take 1 M ethodi azole-trime 02-[address] thoprim 00:00: 05:59 mouth 2 Hospit a (Bactrim 00 :00 (two) l DS) 800-160 times a mg per day for 7 tablet days. traMADoL 2022- [place] [id number] 50mg Q6H Take 1 Metho di (ULTRAM) 50 02-24 tablet (50 s t mg tablet 00:00: 05:59 mg total) Ho spita 00 :00 by mouth l every 6 (six) hours as needed for severe pain for up to 5 [place] [id number] 50mg Q6H Take 1 Metho di (ULTRAM) 50 02-24 tablet (50 s t mg tablet 00:00: 05:59 mg total) Ho spita 00 :00 by mouth l every 6 (six) hours as needed for severe pain for up to 5 days .acute pain. polyethylen 2022- No peg Metho di e glycol 02-19 3350-elect st (FORVM) 06:21: 00:00 rolytes Hos sariah 236-22.74-6 56 :00 236 l .74 -5.86 gram-22.74 gram gram-6.74 solution gram-5.86 gram solution polyethylen 2022- No peg Metho di e glycol 02-19 3350-elect st (FORVM) 06:21: 00:00 [facility]tes Hos sariah 236-22.74-6 56 :00 236 l .74 -5.86 gram-22.74 gram gram-6.74 solution gram-5.86 gram solution gabapentin 2022- No NOT Method i (NEURONTIN) 02-[address] 400 mg 06:21: 00:00 TAKING Hospita capsule 50 :00 l gabapentin 2022- No NOT Method i (NEURONTIN) 02-[address] 400 mg 06:21: 00:00 TAKING Hospita capsule 50 :00 l LORazepam 2021- No [id number] 1mg 1 mg, Un britton (ATIVAN) 04-24 Oral, ity of tablet 1 mg 20:30: 18:06 [place]CE[place] dose, On Medical Thu04/24/21 Branch at 1430, Routine polyethylen 2020-02- No [id number] 4000mL Take 4,000 UT e glycol 02-16-02 mL by [facility] ([employer]) 00:00: 04:59 mouth 1 236 g 00 [...] 1 CAPSULE BY MOUTH FOUR TIMES DAILY traMADOL 2016-0 Yes 50mg Take 1 Univers (ULTRAM) 50 1-16 tablet by ity of mg tablet 00:00: mouth [place] 00 every 6 Medical (six) Branch hours as needed for Pain (scale 7-10). cephALEXin 2017-0 Yes 500mg Take 1 Univ ers (KEFLEX) 1-16 capsule by ity o f 500 mg 00:00: mouth 4 [place] capsule 00 (four) Medical times Branch daily. sulfamethox 2017-0 Yes 1{tbl} Take 1 Un britton azole-trime 1-16 tablet by ity of thoprim 00:00: mouth [place] 800-160 mg 00 every 12 Medic al per tablet (twelve) Branc h hours. traMADOL 2017-0 Yes 50mg Take 1 Univers (ULTRAM) 50 1-16 tablet by ity of mg tablet 00:00: mouth [place] 00 every 6 Medical (six) Branch hours as needed for Pain (scale 7-10). cephALEXin 2017-0 Yes 500mg Take 1 Univ ers (KEFLEX) 1-16 capsule by ity o f 500 mg 00:00: mouth 4 [place] capsule 00 (four) Medical times Branch daily. sulfamethox 2017-0 Yes 1{tbl} Take 1 Un britton azole-trime 1-16 tablet by ity of thoprim 00:00: mouth [place] 800-160 mg 00 every 12 Medic al per tablet (twelve) Branc h hours. Immunizations Ordered Filled Immunization Date Status Comments [facility] e Immunization Name Name Td 2016-03-03 Completed [facility] 00:00:00 [facility] Td 2016-03-03 Completed [facility] 00:00:00 [facility] Vital Signs Vital Name Observation Time Observation Value Comments Source Systolic blood 2021-04-11 14:51:00 140 mm[Hg] Univer sity of pressure [facility] Diastolic blood 2021-04-11 14:51:00 90 mm[Hg] Unive rsity of pressure [facility] Heart rate 2021-04-11 14:51:00 82 /min Universi [facility] Body height 2021-04-11 14:50:00 177.8 cm [facility] Body weight 2021-04-11 14:50:00 [facility]832 [facility] 2021-04-11 14:50:00 39.17 kg/m2 [facility] Oxygen saturation in 2021-04-11 14:50:00 99 /min University Arterial blood by [facility] Pulse oximetry Maramec Systolic blood 2020-12-04 19:11:00 178 mm[Hg] [facility] pressure Diastolic blood 2020-12-04 19:11:00 89 mm[Hg] [facility] pressure Heart rate 2020-12-04 19:11:00 100 /min [facility] temperature 2020-12-04 19:11:00 37.17 Apple [facility] Respiratory rate 2020-12-04 19:11:00 16 /min [facility] Body height 2020-12-04 19:11:00 177.8 cm [facility] Body weight 2020-12-04 19:11:00 124.739 [facility] BMI 2020-12-04 19:11:00 39.46 kg/m2 [facility] Sy[facility]olic blood 2022-02-24 17:05:40 119 mm[Hg] [facility] Di[facility] blood 2022-02-24 17:05:40 65 mm[Hg] [facility] pressure Heart rate 2022-02-24 17:05:40 76 /min [facility] Body temperature 2022-02-24 17:05:40 35.78 Apple [facility] Respiratory rate 2022-02-24 17:05:40 18 /min [facility] Oxygen saturation in 2022-02-24 17:05:40 97 /min Arterial blood by Pulse oximetry Body height 2022-02-19 12:16:00 177.8 cm [facility] Body weight 2022-02-19 12:16:00 125.601 kg [facility] BMI 2022-02-19 12:16:00 39.73 kg/m2 [facility] Procedures Procedure Date / Time Performing Clinician Source Performed PHOSPHORUS LEVEL 2022-02-23 11:12:00 [facility] BASIC METABOLIC PANEL 2022-02-23 11:12:00 [facility] ESTIMATED GFR 2022-02-23 11:12:00 [facility] WITH PLATELET AND 2022-02-22 12:13:00 [facility] DIFFERENTIAL BASIC METABOLIC PANEL 2022-02-22 12:13:00 [facility] MAGNESIUM LEVEL 2022-02-22 12:13:00 [facility] PHOSPHORUS LEVEL 2022-02-22 12:13:00 [facility] ESTIMATED GFR 2022-02-22 12:13:00 [facility] CBC WITH PLATELET AND 2022-02-21 14:14:00 [facility] DIFFERENTIAL BASIC METABOLIC PANEL 2022-02-21 14:14:00 [facility] MAGNESIUM LEVEL 2022-02-21 14:14:00 [facility] ESTIMATED GFR 2022-02-21 14:14:00 [facility] PHOSPHORUS LEVEL 2022-02-21 14:14:00 [facility] WITH PLATELET AND 2022-02-20 11:33:00 [facility] DIFFERENTIAL BASIC METABOLIC PANEL 2022-02-20 11:33:00 [facility] MAGNESIUM LEVEL 2022-02-20 11:33:00 [facility] PHOSPHORUS LEVEL 2022-02-20 11:33:00 [facility] ESTIMATED GFR 2022-02-20 11:33:00 [facility]OLOGY 2022-02-19 20:51:00 Luis Varela [facility] REQUEST HC NERVE BLOCK QUADRATUS 2022-02-19 19:18:07 Laurent Rosas [facility] LUMBORUM NM AN ELECTIVE 2022-02-19 14:07:00 Zeanida Nicole ENDOTRACHEAL AIRWAY CLOSURE, COLOSTOMY 2022-02-19 13:57:00 [facility] ABO AND RH CONFIRMATION 2022-02-19 12:45:00 VarelaLuis [facility] BY PROTOCOL COVID-19 QUALITATIVE 2022-02-14 18:15:00 [facility] PRE/POST OP 2022-02-14 18:04:42 [facility] CBC WITH PLATELET AND 2022-02-14 18:03:00 [facility] DIFFERENTIAL COMPREHENSIVE METABOLIC 2022-02-14 18:03:00 [facility] PANEL HEMOGLOBIN A1C 2022-02-14 18:03:00 [facility] TYPE AND SCREEN 2022-02-14 18:03:00 [facility] ESTIMATED GFR 2022-02-14 18:03:00 [facility] MR SHOULDER LEFT WO 2021-04-24 19:38:04 Alejandro Carroll [facility] Plan of Care Planned Activity Planned Date Details Comments Source Future Scheduled 2022-05-19 Pneumococcal Vaccine: [facility] Test 22:11:05 Pediatrics (0 to 5 Years) and At-Risk Patients (6 to 64 Years) (1 - PCV) [code = Pneumococcal Vaccine: Pediatrics (0 to 5 Years) and At-Risk Patients (6 to 64 Years) (1 - PCV)] Future Scheduled 2022-05-19 Hepatitis C screening [facility] Test 22:11:05 (procedure) [code = 521102162] Future Scheduled 2022-05-19 COLONOSCOPY SCREENING [facility] Test 22:11:05 [code = COLONOSCOPY SCREENING] Future Scheduled 2022-05-19 SHINGLES VACCINES ([facility] Test 22:11:05 of 2) [code = SHINGLES VACCINES (1 of 2)] Future Scheduled 2022-05-19 COVID-19 VACCINE (3 - [facility] Test 22:11:05 Booster for Moderna series) [code = COVID-19 VACCINE (3 - Booster for Moderna series)] Future Scheduled 2022-05-19 INFLUENZA VACCINE [facility] Test 22:11:05 [code = INFLUENZA VACCINE] Future Scheduled 2022-04-22 Pneumococcal Vaccine: [facility] Test 13:08:08 Pediatrics (0 to 5 Years) and At-Risk Patients (6 to 64 Years) (1 - PCV) [code = Pneumococcal Vaccine: Pediatrics (0 to 5 Years) and At-Risk Patients (6 to 64 Years) (1 - PCV)] Future Scheduled 2022-04-22 Hepatitis C screening [facility] Test 13:08:08 (procedure) [code = [id number]] Future Scheduled 2022-04-22 COLONOSCOPY SCREENING [facility] Test 13:08:08 [code = COLONOSCOPY SCREENING] Future Scheduled 2022-04-22 SHINGLES VACCINES (1 Met [facility] Test 13:08:08 of 2) [code = SHINGLES VACCINES (1 of 2)] Future Scheduled 2022-04-22 COVID-19 VACCINE (3 - [facility] Test 13:08:08 Booster for Moderna series) [code = COVID-19 VACCINE (3 - Booster for Moderna series)] Future Scheduled 2022-04-22 INFLUENZA VACCINE Method [facility] Test 13:08:08 [code = INFLUENZA VACCINE] Encounters Start End Encounter Admission Attending Care Care Encounter Source Date/Time Date/Time Type Type Clinicians Facility Department ID 2022-02-14 Outpatient [facility] [id number] [place] 15:26:09 [id number] [facility] 2022-01-13 Outpatient [facility] [id number] [place] 16:22:41 [id number] [facility] 2022-01-06 Outpatient [facility] [id number] [place] 11:17:32 [id number] [facility] 2021-03-12 Outpatient [facility] [id number] [place] 13:20:04 [facility] 2020-12-04 [facility] [id number] [place] 15:02:25 [facility] 2022-04-17 2022-04-17 Office ALVAREZ Varela [id number] [place] 11:00:00 12:03:35 Visit Luis MILLER 350.1.13.58 He alth 9.2.7.2.686 [id number] 3 2022-04-03 2022-04-03 Office ALVAREZ Varela [id number] [place] 11:00:00 11:28:53 Visit Luis MILLER 350.1.13.58 He alth 9.2.7.2.686 [id number] 3 2022-03-06 2022-03-06 Office ALVAREZ Varela [id number] [place] 11:15:00 11:55:53 Visit Luis MILLER 350.1.13.58 He alth 9.2.7.2.686 [id number] 3 2022-02-19 2022-02-24 [facility], 1.2.840.1 [id number] Methodi 05:44:00 12:10:00 Encounter Luis Slater 12231.1.[address] 3.430.2.7 Hospit a .3.005463 l .8 2022-02-19 2022-02-24 [facility], 1.2.840.1 [id number] Methodi 05:44:00 12:10:00 Encounter Luis Slater 45299.1.[address] 3.430.2.7 Hospit a .3.722868 l .8 2022-02-19 2022-02-19 Anesthesia [facility], 1.2.840.1 [id number] Methodi 07:57:00 12:37:00 Event Laurent 57534.1.[address] [place] 3.430.2.7 Hospit a .3.696396 l .8 2022-02-19 2022-02-19 Anesthesia Rosas, 1.2.840.1 [id number] Methodi 07:57:00 12:37:00 Event Laurent 52973.1.[address] [place] 3.430.2.7 Hospit a .3.189824 l .8 2022-02-19 2022-02-19 Surgery Varela, 1.2.840.1 [id number] Methodi 08:00:00 11:30:00 Luis Slater 85511.1.1 860 s t 3.430.2.7 Hospit a .3.957682 l .8 2022-02-19 2022-02-19 Surgery Varela, 1.2.840.1 [id number] Methodi 08:00:00 11:30:00 Luis Slater 43256.1.1 860 s t 3.430.2.7 Hospit a .3.247249 l .8 2022-02-19 2022-02-19 Outpatient VARELA, [facility] [id number] [place] 08:00:00 08:00:00 [facility] 2022-02-14 2022-02-14 Pre-Admiss Varela, 1.2.840.1 [id number] Methodi 11:10:00 12:10:00 ion Luis Slater 64010.1.1 228 s t Testing 3.430.2.7 Hospit a .3.859964 l .8 2022-02-14 2022-02-14 Pre-Admiss Varela, 1.2.840.1 [id number] [id number] Methodi 11:10:00 12:10:00 ion Luis Slater 64259.1.1 228 s t Testing 3.430.2.7 Hospit a .3.749167 l .8 2022-02-14 2022-02-14 Travel 1.2.840.1 [id number] [id number] Methodi 00:00:00 00:00:[address] 3.430.2.7 0.2.7.3.698 Ho spita .3.804269 084.8 l .8 2022-02-14 2022-02-14 Travel 1.2.840.1 1.2.686.545 [id number] Methodi 00:00:00 00:00:[address] 3.430.2.7 0.2.7.3.698 Ho spita .3.988382 084.8 l .8 2022-01-13 2022-01-13 Outpatient AVERY [facility] [id number] [place] 16:30:00 17:00:13 [facility] 2021-05-13 2021-05-13 [facility] [id number] Univers 14:45:00 15:15:47 [facility] 2021-04-24 2021-04-24 [facility] [id number] Univers 13:00:00 23:59:00 ALEJANDRO [facility] 2021-04-24 2021-04-24 [facility] 1.2.840.114 [id number] Univers 11:55:52 23:59:00 Encounter Alejandro [facility] 350.1.13.10 ity of [place] [id number] [address] ([facility]) 2021-04-11 2021-04-11 [facility] [id number] Univers 08:55:00 23:59:00 ALEJANDRO tristin [facility] 2021-04-11 2021-04-11 Outpatient [facility] [id number] Univers 08:45:00 09:26:32 ALEJANDRO [facility] 2021-04-11 2021-04-11 Office [facility] [id number] Univers 08:45:00 09:26:32 Visit Alejandro [facility] 350.1.13.10 it y of [place] 4.2.7.2.686 Grey as INGRID?BLEA [id number] [address] MEDICAL OFFICE BUILDING 2021-04-11 2021-04-11 Orders Doctor GARRIDO 1.2.840.114 [id number] Univers 00:00:00 00:00:00 Only Unassigned, KIMBERLEE 350.1.13.10 ity of [place] [facility] 4.2.7.2.686 Grey as [id number] [facility] 009 Branch 2021-04-04 2021-04-04 Outpatient Kandi CARROLL [facility] [id number] [facility] 08:45:00 08:45:00 ALEJANDRO ittristin [facility] 2021-03-26 2021-03-26 Orders Doctor GARRIDO 1.2.840.[id number] [place] [address] 00:00:00 00:00:00 Only Unassigned, KIMBERLEE 350.1.13.10 ity of [place] [facility] 4.2.7.2.686 Grey as [id number] [facility] 009 Branch 2020-12-25 2020-12-25 [id number] [place] 00:00:00 00:00:[address] 2020-12-17 2020-12-17 Orders Arina Villafana ALVAREZ HOGAN 1.2.840. 114 [id number] [place] 00:00:00 00:00:00 Only Arina Villafana 350.1.13.58 Health 9.2.7.2.686 [id number] 3 2020-12-04 2020-12-04 Office ALVAREZ Varela SAMIRA 1.2.812.338 [id number] [place] 14:07:26 15:10:45 Visit Luis MILLER 350.1.13.58 He alth 9.2.7.2.686 [id number] 3 2020-08-13 2020-08-14 Emergency [facility] 1.2.786.411 [id number] 22:12:00 00:10:00 Ana Skelton 350.1.13.10 [place] 4.2.7.2.686 [place] [id number] 084 2020-08-13 2020-08-14 Emergency [facility] 1.2.240.[id number] [facility] 22:12:00 00:10:00 Ana Skelton 350.1.13.10 i ty of [place] 4.2.7.2.686 [facility] [id number] [place] [id number] Branch 2020-08-13 2020-08-13 Emergency X [facility] ERT [id number] Univers 21:52:00 21:52:00 ity [facility] Results Test Description Test Time Test Comments Results Result Comments Source Surgical pathology request 2022-02-24 22:41:19 Test Item Value Reference Range Interpretation Comme nts Case number (test code = 1609035) [id number] Surgical pathology report (test code = See link below for PDF Lab R eport 2255) Result status (test code = 0904210) This is Final Report for [id number] [facility] [id number] 22:41:19 Test Item Value Reference Range Interpretation Comments Case number (test code = [id number]) Surgical pathology See link below for report (test code = PDF Lab Report 2255) Result status (test code This is Final Report = [id number]) for [id number] Pre/Post [id number] 23:55:58 Test Item Value Reference Range Interpretation Comments Ventricular rate (test 62 code = 253) Atrial rate (test code 62 = 255) NM interval (test code 160 = 266) QRSD interval (test 118 code = 260) QT interval (test code 422 = 264) QTC interval (test code 428 = 265) P axis 1 (test code = 32 267) QRS axis 1 (test code = -45 268) T wave axis (test code 9 = 270) EKG impression (test Normal sinus code = 273) rhythm-Pulmonary disease pattern-Left anterior fascicular block-Cannot rule out Inferior infarct , age undetermined-Abnormal ECG-No previous ECGs available-Electronical ly Signed By Pedro Luis TYSON, [facility] ([id number]) on 02/14/2022 5:55:55 PM EC Pre/Post [id number] 23:55:58 Test Item Value Reference Range Interpretation Comments Ventricular rate (test 62 code = 253) Atrial rate (test code 62 = 255) NM interval (test code 160 = 266) QRSD interval (test 118 code = 260) QT interval (test code 422 = 264) QTC interval (test code 428 = 265) P axis 1 (test code = 32 267) QRS axis 1 (test code = -45 268) T wave axis (test code 9 = 270) EKG impression (test Normal sinus code = 273) rhythm-Pulmonary disease pattern-Left anterior fascicular block-Cannot rule out Inferior infarct , age undetermined-Abnormal ECG-No previous ECGs available-Electronical ly Signed By Awilda Cloud MD ([id number]) on 02/14/2022 5:55:55 PM Daniel Ambrose-CoV-2 (COVID-19) RNA [Presence] in Respiratory specimen by LILIANA with probe [id number] 17:26:07 Test Item Value Reference Range Interpretation Comments SARS-CoV-2 (COVID-19) RNA Not detected [Presence] in Respiratory specimen by LILIANA with probe detection (test code = 46815-2) Whether patient is employed in a Unknown healthcare setting (test code = 92607-6) Whether the patient has symptoms Unknown related to condition of interest (test code = 61985-1) Whether the patient was Unknown hospitalized for condition of interest (test code = 59751-1) Whether the patient was admitted Unknown to intensive care unit (ICU) for condition of interest (test code = 10131-2) Whether patient resides in a Unknown congregate care setting (test code = 73304-4) status (test code = Unknown 70099-8) Date and time of symptom onset Unknown (test code = 95392-7) JOLYNN BENOIT-CoV-2 (COVID-19) RNA [Presence] in Respiratory specimen by LILIANA with probe [id number] 07:59:39 Test Item Value Reference Range Interpretation Comments SARS-CoV-2 (COVID-19) RNA Not detected Not-Detected [Presence] in Respiratory specimen by LILIANA with probe detection (test code = 30822-8) Whether patient is employed in a healthcare setting (test code = 23815-2) Whether the patient has symptoms related to condition of interest (test code = 09992-4) Patient was hospitalized because of this condition (test code = 79212-2) Whether the patient was admitted to intensive care unit (ICU) for condition of interest (test code = 06929-1) Whether patient resides in a congregate care setting (test code = 57906-7) JOLYNN ADAN
--- NOTE | 2022-06-13 16:23 | RAD REPORT ---
EXAM DESCRIPTION: CT - Head Brain Wo Cont - 06/13/2022 4:13 pm CLINICAL HISTORY: Headache status post fall with head injury COMPARISON: none TECHNIQUE: Computed axial tomography of the head was obtained. IV contrast was not requested. All CT scans are performed using dose optimization technique as appropriate and may include automated exposure control or mA/KV adjustment according to patient size. FINDINGS: An intracranial bleed is not seen The ventricles are normal in caliber No significant hypodense areas within the brain visualized No extra-axial fluid collection is noted. Fluid within the sinuses/ mastoids is not seen IMPRESSION: No acute intracranial abnormality is seen If patient's symptoms persist MRI of the brain would be recommended
--- NOTE | 2022-06-13 16:30 | RAD REPORT ---
EXAM DESCRIPTION: CT - Thorax Wo Con - 06/13/2022 4:14 pm CLINICAL HISTORY: Rib pain/chest pain COMPARISON: none TECHNIQUE: Computed axial tomography of the chest was obtained. Contrast was not requested. All CT scans are performed using dose optimization technique as appropriate and may include automated exposure control or mA/KV adjustment according to patient size. FINDINGS: The evaluation of mediastinum, xiao and vessels is limited secondary to lack of IV contras t administration. [id number] bilateral upper lobe opacities with peribronchial thickening. Calcified mediastinal lymph node. No hilar lymphadenopathy no pericardial effusion Rib fracture not seen A pleural effusion is not present. Most inferior slices demonstrate a ventral hernia containing fat IMPRESSION: Mild to moderate bilateral upper lobe opacities with peribronchial thickening have more of a chronic than acute appearance
--- NOTE | 2022-06-13 16:38 | EDPHYS ---
Physician Documentation [facility] Name: Issac Ortiz Age: 57 yrs Sex: Male : 1965 Arrival Date: 06/13/2022 Time: 15:48 Bed IW1 Private MD: ED Physician Cooper Balderas HPI: 06/13 16:36 This 57 yrs old Male presents to ER via Ambulatory with complaints of FELL OFF kb A TRAILER. 16:36 Details of fall: The patient fell from an upright position, while walking. Onset: The kb symptoms/episode began/occurred 2 day(s) ago. Associated injuries: The patient sustained injury to the head, pain, injury to the chest, specifically the right anterior lower ribs, pain with movement, tenderness. Severity of symptoms: At their worst the symptoms were moderate, in the emergency department the symptoms are unchanged. The patient has not experienced similar symptoms in the past. The patient has not recently seen a physician. Pt states his boot got caught in the trailer where the holes for the ramp is and he fell into the trailer 2 days ago. reports continued headache, irritability and right anterior lower rib pain from the fall. . Historical: - Allergies: 16:06 No Known Allergies; cm9 - PMHx: 16:06 ACCIDENT - FELL THRU ROOF; Chronic pain; Diverticulitis; cm9 - PSHx: 16:06 Colostomy; abd sx; cm9 - Immunization history:: Client reports receiving the 2nd dose of the Covid vaccine. - Social history:: Smoking status: Patient reports the use of cigarette tobacco products, smokes one pack cigarettes per day. Patient/guardian denies using alcohol. ROS: 16:11 Constitutional: Negative for fever, chills, and weight loss. kb 16:11 Cardiovascular: Positive for chest pain, with movement, of the right anterior lower ribs. 16:11 MS/extremity: Positive for pain, of the left knee. 16:11 Neuro: Positive for altered mental status, headache. 16:11 All other systems are negative. Exam: 16:34 Constitutional: This is a well developed, well nourished patient who is awake, alert, kb and in no acute distress. Head/Face: Normocephalic, atraumatic. Eyes: Pupils equal round and reactive to light, extra-ocular motions intact. Lids and lashes normal. Conjunctiva and sclera are non-icteric and not injected. Cornea within normal limits. Periorbital areas with no swelling, redness, or edema. ENT: Moist Mucous membranes Cardiovascular: Regular rate and rhythm with a normal S1 and S2. No gallops, murmurs, or rubs. No pulse deficits. Respiratory: Respirations even and unlabored. No increased work of breathing. Talking in full sentences Skin: Warm, dry with normal turgor. Normal color. MS/ Extremity: Pulses equal, no cyanosis. Neurovascular intact. Full, normal range of motion. Neuro: Awake and alert, GCS 15, oriented to person, place, time, and situation. Moves all extremities. Normal gait. 16:34 Chest/axilla: Inspection: normal, Palpation: tenderness, that is moderate, of the right anterior lower ribs, that totally reproduces the patient's complaints. 16:34 Abdomen/GI: Inspection: scar(s), Bowel sounds: normal, Palpation: abdomen is soft and non-tender, in all quadrants. Vital Signs: 16:03 BP 126 / 75; Pulse 96; Resp 20; Temp 98; Pulse Ox 98% on R/A; Weight 104.33 kg; Height cm9 5 ft. 9 in. ; Pain 10/10; 16:03 Body Mass Index 33.96 (104.33 kg, 175.26 cm) cm9 16:03 Pain Scale: Adult cm9 MDM: 15:52 Patient medically screened. kb 16:35 Data reviewed: vital signs, nurses notes. kb 16:36 Differential diagnosis: closed head injury, contusion, fracture, multiple trauma. kb Counseling: I had a detailed discussion with the patient and/or guardian regarding: the historical points, exam findings, and any diagnostic results supporting the discharge/admit diagnosis, radiology results, the need for outpatient follow up, a family practitioner, to return to the emergency department if symptoms worsen or persist or if there are any questions or concerns that arise at home. 06/13 15:58 Order name: CT Head Brain wo Cont; Complete Time: 16:28 kb 06/13 15:58 Order name: CT Chest Wo Con; Complete Time: 16:33 kb Administered Medications: No medications were administered Disposition: 19:34 Co-signature as Attending Physician, Cooper Balderas DO I was immediately available on-site ms3 in the Emergency Department for consultation in the care of the patient. Disposition Summary: 06/13/22 16:38 Discharge Ordered Location: Home kb Condition: Stable kb Diagnosis - Unspecified injury of head, initial encounter kb - Contusion of right front wall of thorax kb Followup: kb - With: Emergency Department - When: As needed - Reason: Worsening of condition Followup: kb - With: Private Physician - When: 2 - 3 days - Reason: Recheck today's complaints, Continuance of care, Re-evaluation by your physician Discharge Instructions: - Discharge Summary Sheet kb - Rib Contusion kb - Head Injury, Adult, [id number] kb Forms: - Medication Reconciliation Form kb - Thank You Letter kb - Antibiotic Education kb - Prescription Opioid Use kb Prescriptions: - Diclofenac Sodium 75 mg Oral tablet,delayed release (DR/EC) - take 1 tablet by ORAL route 2 times per day As needed; 30 tablet; Refills: 0, kb Product Selection Permitted Signatures: Dispatcher [employer] EDMS Linh Castro, LEONELA-C [employer] WEIGHER-Cooper Drummond DO DO ms3 Naa Torrez, RN RN cm9 Corrections: (The following items were deleted from the chart) 16:07 16:06 PMHx: neuropathy; cm9 cm9
--- NOTE | 2022-06-13 16:38 | ER ---
Nurse's Notes [facility] Name: Issac Ortiz Age: 57 yrs Sex: Male : 1965 Arrival Date: 06/13/2022 Time: 15:48 Bed IW1 Private MD: Diagnosis: Unspecified injury of head, initial encounter;Contusion of right front wall of thorax Presentation: 06/13 16:03 Chief complaint: Patient states: Pt reports two days ago had a mechanical fall while cm9 ambulating on a trailer; pt. "does not remember" if he had any LOC, denies blood thinners; pt verbalized experiencing right lower rib pain and left knee pain since the fall. Coronavirus screen: Vaccine status: Patient reports receiving the 2nd dose of the covid vaccine. At this time, the client does not indicate any symptoms associated with coronavirus-19. Ebola Screen: No symptoms or risks identified at this time. Initial Sepsis Screen: Does the patient meet any 2 criteria? No. Patient's initial sepsis screen is negative. Does the patient have a suspected source of infection? No. Patient's initial sepsis screen is negative. Risk Assessment: Do you want to hurt yourself or someone else? Patient reports no desire to harm self or others. Onset of symptoms was June 13, 2022. 16:03 Method Of Arrival: Ambulatory 9 16:03 Acuity: RAGHAV 2 cm9 Triage Assessment: 16:06 General: Appears in no apparent distress. Behavior is calm, cooperative. Pain: cm9 Complains of pain in abdomen diffusely Pain currently is 10 out of 10 on a pain scale. Quality of pain is described as aching, sharp, Pain began 2-3 days ago. 16:06 Neuro: Level of Consciousness is awake, alert, obeys commands, Oriented to person, cm9 place, time, situation. Cardiovascular: Capillary refill < 3 seconds Patient's skin is warm and dry. Respiratory: Airway is patent Respiratory effort is even, unlabored. Musculoskeletal: Reports pain in abdomen and left leg. Historical: - Allergies: 16:06 No Known Allergies; cm9 - PMHx: 16:06 ACCIDENT - FELL THRU ROOF; Chronic pain; Diverticulitis; cm9 - PSHx: 16:06 Colostomy; abd sx; cm9 - Immunization history:: Client reports receiving the 2nd dose of the Covid vaccine. - Social history:: Smoking status: Patient reports the use of cigarette tobacco products, smokes one pack cigarettes per day. Patient/guardian denies using alcohol. Screenin:[facility] ED Fall Risk Assessment (Adult) History of falling in the last 3 months, ph including since admission Yes- single mechanical fall (1 pt) Confusion or Disorientation No (0 pts) Intoxicated or Sedated No (0 pts) Impaired Gait No (0 pts) Mobility Assist Device Used No (0 pt) Altered Elimination No (0 pt) Score/Fall Risk Level 0 - 2 = Low Risk Oriented to surroundings, Maintained a safe environment. Abuse screen: Denies threats or abuse. Denies injuries from another. Nutritional screening: No deficits noted. Tuberculosis screening: No symptoms or risk factors identified. Assessment: 16:50 General: Appears in no apparent distress. Behavior is calm, cooperative. Pain: ph Complains of pain in right lateral anterior chest. Neuro: Escobar Agitation-Sedation Scale (RASS): 0 - Alert and Calm Level of Consciousness is awake, alert, obeys commands, Oriented to person, place, time, situation. Cardiovascular: Capillary refill < 3 seconds in bilateral fingers Patient's skin is warm and dry. Respiratory: Airway is patent Respiratory effort is even, unlabored. Derm: Skin is pink, warm \\T\\ dry. Vital Signs: 16:03 BP 126 / 75; Pulse 96; Resp 20; Temp 98; Pulse Ox 98% on R/A; Weight 104.33 kg; Height cm9 5 ft. 9 in. ; Pain 10/10; 16:03 Body Mass Index 33.96 (104.33 kg, 175.26 cm) cm9 16:03 Pain Scale: Adult cm9 ED Course: 15:51 Patient arrived in ED. ts1 15:52 Linh Castro FNP-C [facility] kb 15:52 Cooper Balderas DO is Attending Physician. kb 16:06 Triage completed. cm9 16:06 Arm band placed on left wrist. cm9 16:15 CT Head Brain wo Cont In Process Unspecified. EDMS 16:15 CT Chest Wo Con In Process Unspecified. EDMS 16:50 Patient has correct armband on for positive identification. ph 16:50 No provider procedures requiring assistance completed. Patient did not have IV access ph during this emergency room visit. Administered Medications: No medications were administered Medication: 16:50 VIS not applicable for this client. ph Outcome: 16:38 Discharge ordered by . michael 16:51 Discharged to home ambulatory. ph 16:51 Condition: good 16:51 Discharge instructions given to patient, Instructed on discharge instructions, follow up and referral plans. medication usage, Demonstrated understanding of instructions, follow-up care, medications, Prescriptions given X 1. 16:52 Patient left the ED. ph Signatures: Dispatcher [employer] EDNJ Linh Castro, SPLICER MACHINE OPERATOR-C SPLICER MACHINE OPERATOR-Reema Barrera, RN RN ph Naa Torrez, RN RN cm9 Nidhi Pan, PAS PAS ts1 Corrections: (The following items were deleted from the chart) 16:07 16:06 PMHx: neuropathy; cm9 cm9
[2022-06-13 17:31] VITALS: BP 126/75; TEMP 98; O2SAT 98
== END 2022-06-13 16:52 | disposition home or self-care (01) ==
LOC: ER 15:48
DX: S09.90XA Unspecified injury of head, initial encounter (principal); S20.211A Contusion of right front wall of thorax, initial encounter
CPT/HCPCS: 70450; 71250

== ENCOUNTER 2022-08-26 16:58 | Inpatient (IN) | payer OTHER ==
--- OUTSIDE RECORDS SUMMARY | 2022-08-26 17:03 | XMS REPORT | Continuity of Care Document ---
:1965 Author Organization [facility] t Address [address] [place] [address] Care Team Providers Name Role Phone DEREK MEJÍA Primary Care Physician Unavailable LUIS VARELA Attending Clinician Unavailable Laurent Rosas MD Attending Clinician ALEJANDRO CARROLL Attending Clinician Unavailable Alejandro Carroll MD Attending Clinician Doctor Unassigned, Robinson Attending Clinician Unavailable MD LUIS VARELA Attending Clinician Unavailable Arina Villafana MA Attending Clinician Unavailable Ana Zuniga Attending Clinician LUIS VARELA Admitting Clinician Unavailable MD AZAR BLAIR Admitting Clinician Unavailable ALEJANDRO CARROLL Admitting Clinician Unavailable MD LUIS VARELA Admitting Clinician Unavailable Payers Payer Name Policy Type Policy Number Effective Date Expiration Date [facility] MEDICAID STAR [id number] 2019 2021 00:00:00 00:00:00 [place] [id number] 2021 MEDICAID STAR+PLUS 00:00:00 [employer] [id number] 2021 [place] 00:00:00 Problems Condition Condition Condition Status Onset Resolution Last Treating Co mments Source Name Details Category Date Date Treatment Clinician Date Encounter Encounter Disease Active Met hodi for for 02-19 st attention attention 00:00: Hosp noreen to to 00 l colostomy colostomy No known No known Disease [place] active active Health problems problems Allergies, Adverse Reactions, Alerts Allergy Allergy Status Severity Reaction(s) Onset Inactive Treating Comm ents Source Name Type Date Date Clinician NO KNOWN Drug Active Univers ALLERGIE Class ity of [facility] Social History Social Habit Start Date Stop Date Quantity Comments Source History of tobacco Cigarette Smoker [facility] use Hospital History SDOH [facility] Alcohol Std Drinks Hospit al History SDOH [facility] Alcohol Binge Hospital Gender identity [facility] Sexual orientation [facility] Exposure to 2022-04-07 2022-04-17 Not sure [facility] SARS-CoV-2 (event) 00:00:00 11:00:00 History of Social 2022-02-24 2022-02-[address] function 00:00:00 00:00:00 Hospital Alcohol intake 2022-02-21 2022-02-21 Ex-drinker [facility] 00:00:00 00:00:00 (finding) Hospital Tobacco use and 2022-02-19 2022-02-19 Smokeless [facility] exposure 00:00:00 00:00:00 tobacco non-user Hospital Cigarettes smoked 2022-02-19 2022-02-[address] current (pack per 00:00:00 00:00:00 Hospita l day) - Reported Cigarette 2022-02-19 2022-02-19 [facility] pack-years 00:00:00 00:00:00 Hospital Alcohol Comment 2022-02-19 2022-02-19 social [facility] 00:00:00 00:00:00 Hospital Tobacco Comment 2022-02-14 2022-02-[address] 00:00:00 00:00:00 Hospital History SDOH 2020-12-25 2020-12-25 1 [facility] Alcohol Frequency 00:00:00 00:00:00 Hospita l Sex Assigned At [birth year] [facility] 00:00:00 00:00:00 Hospital Smoking Status Start Date Stop Date Source Smoker, current status 2021-04-11 00:00:00 [facility] Smokes tobacco daily 2020-12-04 00:00:00 [facility] Medications Ordered Filled Start Stop Current [...] for 7 days. gabapentin 2022- No 300mg Q.[id number] Take 1 Methodi (NEURONTIN) 02-[id number] 300 mg 00:00: 05:59 3D (300 mg Hospita capsule 00 :00 total) by l mouth every 8 (eight) hours for 7 days. methocarbam 2022-0 3- No 750mg Q.70116416 Take 1 Methodi oL 02-[id number] (ROBAXIN) 00:00: 05:59 3D (750 mg Hosp noreen 750 MG 00 :00 total) by l tablet mouth every 8 (eight) hours for 7 days. sulfamethox 2022-0 2023- No 1{tbl} Q.5D Take 1 M ethodi azole-trime 02-[address] thoprim 00:00: 05:59 mouth 2 Hospit a (Bactrim 00 :00 (two) l DS) 800-160 times a mg per day for 7 tablet days. acetaminoph 2022-0 2022- No 650mg Q6H Take 2 Me thodi en 02-[address] (TYLENOL) 00:00: 05:59 (650 mg Hosp noreen 325 MG 00 :00 total) by l tablet mouth every 6 (six) hours for 7 days. gabapentin 2022-0 3- No 300mg Q.56907601 Take 1 Methodi (NEURONTIN) 02-[id number] 300 mg 00:00: 05:59 3D (300 mg Hospita capsule 00 :00 total) by l mouth every 8 (eight) hours for 7 days. methocarbam 2022-0 3- No 750mg Q.56216836 Take 1 Methodi oL 02-[id number] (ROBAXIN) 00:00: 05:59 3D (750 mg Hosp noreen 750 MG 00 :00 total) by l tablet mouth every 8 (eight) hours for 7 days. sulfamethox 2023-0 3- No 1{tbl} Q.5D Take 1 M ethodi [...] 6 (six) hours for 7 days. gabapentin 2022-2022- No 300mg Q.53254103 Take 1 Methodi (NEURONTIN) 02-[id number] 300 mg 00:00: 05:59 3D (300 mg Hospita capsule 00 :00 total) by l mouth every 8 (eight) hours for 7 days. methocarbam 2022- No 750mg Q.71886628 Take 1 Methodi oL 02-[id number] (ROBAXIN) 00:00: 05:59 3D (750 mg Hosp noreen 750 MG 00 :00 total) by l tablet mouth every 8 (eight) hours for 7 days. sulfamethox 2022- No 1{tbl} Q.5D Take 1 M ethodi azole-trime 02-[address] thoprim 00:00: 05:59 mouth 2 Hospit a (Bactrim 00 :00 (two) l DS) 800-160 times a mg per day for 7 tablet days. [place] 2022- [place] 00[address] 50mg Q6H Take 1 Metho di (ULTRAM) 50 02-24 tablet (50 s t mg tablet 00:00: 05:59 mg total) Ho spita 00 :00 by mouth l every 6 (six) hours as needed for severe pain for up to 5 days .acute pain. traMADoL 2022-0 2022- [place] [id number] 50mg Q6H Take 1 Metho di (ULTRAM) 50 02-24 tablet (50 s t mg tablet 00:00: 05:59 mg total) Ho spita 00 :00 by mouth l every 6 (six) hours as needed for severe pain for up to 5 days .acute pain. traMADoL 2022- [place] 74[address] 50mg Q6H Take 1 Metho di (ULTRAM) 50 02-24 tablet (50 s t mg tablet 00:00: 05:59 mg total) Ho spita 00 :00 by mouth l every 6 (six) hours as needed for severe pain for up to 5 days .acute pain. polyethylen No peg Metho di e glycol 02-19 3350-elect st (GoLYTELY) 06:21: 00:00 [facility] 236-22.74-6 56 :00 236 l .74 -5.86 gram-22.74 gram gram-6.74 solution gram-5.86 gram solution polyethylen No peg Metho di e glycol 02-19 3350-elect st (GoLYTELY) 06:21: 00:00 [facility] 236-22.74-6 56 :00 236 l .74 -5.86 gram-22.74 gram gram-6.74 solution gram-5.86 gram solution polyethylen 2022- No peg Metho di e glycol 02-19 3350-elect st (GoLYTELY) 06:21: 00:00 [facility] 236-22.74-6 56 [...] capsule 50 :00 l LORazepam 2021- No [id number] 1mg 1 mg, Un britton (ATIVAN) 04-24 Oral, ity of tablet 1 mg 20:30: 18:06 [place] dose, On Medical Thu04/24/21 Branch at 1430, Routine polyethylen 2020-02- No [id number] 4000mL Take 4,000 UT e glycol 02-16 mL by TY[employer] ([employer])) 00:00: 04:59 mouth 1 236 g 00 [...] CAPSULE BY MOUTH FOUR TIMES DAILY cephALEXin 2017-0 Yes 500mg Take 1 Univ [...] by ity of mg tablet 00:00: mouth [place] [address] every 6 Medical (six) Branch hours as needed for Pain (scale 7-10). Immunizations Ordered Filled Immunization Date Status Comments Sourc e Immunization Name Name Td 2016-03-03 Completed [facility] 00:00[facility]00 [facility] Td 2016-03-03 Completed [facility] 00:00:00 [facility] Vital Signs Vital Name Observation Time Observation Value Comments Source Systolic blood 2021-04-11 14:51:00 140 mm[Hg] [facility] Diastolic blood 2021-04-11 14:51:00 90 mm[Hg] [facility] Heart rate 2021-04-11 14:51:00 82 /min [facility] Body height 2021-04-11 14:50:00 177.8 cm [facility] Body weight 2021-04-11 14:50:00 123.832 kg [facility] BMI 2021-04-11 14:50:00 39.17 kg/m2 [facility] Oxygen saturation in 2021-04-11 14:50:00 99 /min [facility] Arterial blood by [facility] Pulse oximetry Branch Systolic blood 2020-12-04 19:11:00 [...] 2020-12-04 19:11:00 39.46 kg/m2 [facility] Systolic blood 2022-02-24 17:05:40 119 mm[Hg] [facility] pressure Diastolic blood 2022-02-24 17:05:40 65 mm[Hg] [facility] Hospital pressure Heart rate 2022-02-24 17:05:40 76 /min [facility] Body temperature 2022-02-24 17:05:40 35.78 Apple [facility] Respiratory rate 2022-02-24 17:05:40 18 /min [facility] Oxygen saturation in 2022-02-24 17:05:40 97 /min [facility] Arterial blood by Pulse oximetry Body height 2022-02-19 12:16:00 177.8 cm [facility] Body weight 2022-02-19 12:16:00 125.601 kg [facility] BMI 2022-02-19 12:16:00 39.73 kg/m2 [facility] Procedures Procedure Date / Time Performing Clinician Source Performed PHOSPHORUS LEVEL 2022-02-23 11:12:00 [facility] BASIC METABOLIC PANEL 2022-02-23 11:12:00 [facility] ESTIMATED GFR 2022-02-23 11:12[facility] AND 2022-02-22 12:13:00 [facility] DIFFERENTIAL BASIC METABOLIC PANEL 2022-02-22 12:13:00 [facility] MAGNESIUM LEVEL 2022-02-22 12:13:00 [facility] PHOSPHORUS LEVEL 2022-02-22 12:13:00 [facility] ESTIMATED GFR 2022-02-22 12:13:00 Luis Varela [facility] CBC WITH PLATELET AND 2022-02-21 14:14:00 [facility] DIFFERENTIAL BASIC METABOLIC PANEL 2022-02-21 14:14:00 [facility] MAGNESIUM LEVEL 2022-02-21 14:14:00 [facility] ESTIMATED GFR 2022-02-21 14:14:00 Luis Varela [facility] PHOSPHORUS LEVEL 2022-02-21 14:14:00 [facility] WITH [facility]LET AND 2022-02-20 11:33:00 [facility] DIFFERENTIAL BASIC METABOLIC PANEL 2022-02-20 11:33:00 [facility] MAGNESIUM LEVEL 2022-02-20 11:33:00 [facility] PHOSPHORUS LEVEL 2022-02-20 11:33:00 [facility] ESTIMATED GFR 2022-02-20 11:33:00 [facility] SURGICAL PATHOLOGY 2022-02-19 20:51:00 [facility] REQUEST HC NERVE BLOCK QUADRATUS 2022-02-19 19:18:[address] [facility] 2022-02-19 14:07:00 Zenaida Nicole [facility] ENDOTRACHEAL AIRWAY CLOSURE, COLOSTOMY 2022-02-19 13:57:00 [facility] ABO AND RH CONFIRMATION 2022-02-19 12:45:00 [facility] BY PROTOCOL COVID-19 QUALITATIVE 2022-02-14 18:15:00 [facility] RT-PCR ECG PRE/POST OP 2022-02-14 18:04:42 [facility] CBC WITH PLATELET AND 2022-02-14 18:03:00 [facility] DIFFERENTIAL COMPREHENSIVE METABOLIC 2022-02-14 18:03:00 [facility] PANEL HEMOGLOBIN A1C 2022-02-14 18:03:00 [facility] TYPE AND SCREEN 2022-02-14 18:03:00 [facility] ESTIMATED GFR 2022-02-14 18:03:00 [facility] MR SHOULDER LEFT WO 2021-04-24 19:38:04 [facility] Plan of Care Planned Activity Planned Date Details Comments Source Future Scheduled 2022-08-17 Screening for [facility] Test 20:23:31 malignant neoplasm of colon (procedure) [code = 151922176] Future Scheduled 2022-08-17 Screening for [facility] Test 20:23:31 malignant neoplasm of colon (procedure) [code = 496499254] Future Scheduled 2022-08-17 Pneumococcal Vaccine: [facility] Test 20:23:31 Pediatrics (0 to 5 Years) and At-Risk Patients (6 to 64 Years) (1 - PCV) [code = Pneumococcal Vaccine: Pediatrics (0 to 5 Years) and At-Risk Patients (6 to 64 Years) (1 - PCV)] Future Scheduled 2022-08-17 Hepatitis C screening [facility] Test 20:23:31 (procedure) [code = 167438656] Future Scheduled 2022-08-17 Screening for [facility] Test 20:23:31 malignant neoplasm of colon (procedure) [code = 409256668] Future Scheduled 2022-08-17 SHINGLES VACCINES (1 Met [facility] Test 20:23:31 of 2) [code = SHINGLES VACCINES (1 of 2)] Future Scheduled 2022-08-17 COVID-19 VACCINE (3 - [facility] Test 20:23:31 Moderna series) [code = COVID-19 VACCINE (3 - Moderna series)] Future Scheduled 2022-08-17 Screening for [facility] Test 20:23:31 malignant neoplasm of colon (procedure) [code = 629772107] Future Scheduled 2022-08-17 Screening for [facility] Test 20:23:31 malignant neoplasm of colon (procedure) [code = 315274856] Future Scheduled 2022-08-17 INFLUENZA VACCINE Method [facility] Test 20:23:31 [code = INFLUENZA VACCINE] Future Scheduled 2022-05-19 Pneumococcal Vaccine: [facility] Test 22:11:05 Pediatrics (0 to 5 Years) and At-Risk Patients (6 to 64 Years) (1 - PCV) [code = Pneumococcal Vaccine: Pediatrics (0 to 5 Years) and At-Risk Patients (6 to 64 Years) (1 - PCV)] Future Scheduled 2022-05-19 Hepatitis C screening [facility] Test 22:11:05 (procedure) [code = 000331796] Future Scheduled 2022-05-19 COLONOSCOPY SCREENING [facility] Test 22:11:05 [code = COLONOSCOPY SCREENING] Future Scheduled 2022-05-19 SHINGLES VACCINES (1 Met [facility] Test 22:11:05 of 2) [code = SHINGLES VACCINES (1 of 2)] Future Scheduled 2022-05-19 COVID-19 VACCINE (3 - [facility] Test 22:11:05 Booster for Moderna series) [code = COVID-19 VACCINE (3 - Booster for Moderna series)] Future Scheduled 2022-05-19 INFLUENZA VACCINE Method [facility] Test 22:11:05 [code = INFLUENZA VACCINE] Future Scheduled 2022-04-22 Pneumococcal Vaccine: [facility] Test 13:08:08 Pediatrics (0 to 5 Years) and At-Risk Patients (6 to 64 Years) (1 - PCV) [code = Pneumococcal Vaccine: Pediatrics (0 to 5 Years) and At-Risk Patients (6 to 64 Years) (1 - PCV)] Future Scheduled 2022-04-22 Hepatitis C screening [facility] Test 13:08:08 (procedure) [code = 830529491] Future Scheduled 2022-04-22 COLONOSCOPY SCREENING [facility] Test 13:08:08 [code = COLONOSCOPY SCREENING] Future Scheduled 2022-04-22 SHINGLES VACCINES (1 Met [facility] Test 13:08:08 of 2) [code = SHINGLES VACCINES (1 of 2)] Future Scheduled 2022-04-22 COVID-19 VACCINE (3 - [facility] Test 13:08:08 Booster for Moderna series) [code = COVID-19 VACCINE (3 - Booster for Moderna series)] Future Scheduled 2022-04-22 INFLUENZA VACCINE Method [facility] Test 13:08:08 [code = INFLUENZA VACCINE] Encounters Start End Encounter Admission Attending Care Care Encounter Source Date/Time Date/Time Type Type Clinicians Facility Department ID 2022-02-14 Outpatient [facility] [id number] [place] 15:26:[id number] [facility] 2022-01-13 Outpatient [facility] [id number] [place] 16:22:[id number] [facility] 2022-01-06 Outpatient [facility] [id number] [place] 11:17:[id number] [facility] 2021-03-12 Outpatient [facility] [id number] [place] 13:20:04 [facility] 2020-12-04 [facility] [id number] [place] 15:02:25 [facility] 2022-04-17 2022-04-17 Office ALVAREZ Varela [id number] [place] 11:00:00 12:03:35 Visit Luis MILLER 350.1.13.58 He alth 9.2.7.2.686 [id number] 3 2022-04-03 2022-04-03 Office ALVAREZ Varela 1.2.519.915 [id number] [place] 11:00:00 11:28:53 Visit Luis MILLER 350.1.13.58 He alth 9.2.7.2.686 [id number] 3 2022-03-06 2022-03-06 Office ALVAREZ Varela 1.2.632.557 [id number] [place] 11:15:00 11:55:53 Visit Luis MILLER 350.1.13.58 He alth 9.2.7.2.686 [id number] 3 2022-02-19 2022-02-24 [facility], 1.2.840.1 [id number] Methodi 05:44:00 12:10:00 Encounter Luis Slater 88548.1.[address] 3.430.2.7 Hospit a .3.786898 l .8 2022-02-19 2022-02-24 [facility], 1.2.840.1 [id number] Methodi 05:44:00 12:10:00 Encounter Luis Slater 37686.1.[address] 3.430.2.7 Hospit a .3.495466 l .8 2022-02-19 2022-02-19 Anesthesia [facility], 1.2.840.1 [id number] Methodi 07:57:00 12:37:00 Event Laurent 78139.1.[address] [place] 3.430.2.7 Hospit a .3.597265 l .8 2022-02-19 2022-02-19 Anesthesia [facility], 1.2.840.1 [id number] Methodi 07:57:00 12:37:00 Event Laurent 41917.1.[address] [place] 3.430.2.7 Hospit a .3.929568 l .8 2022-02-19 2022-02-19 Surgery Varela, 1.2.840.1 [id number] Methodi 08:00:00 11:30:00 Romero. 83332.1.1 860 s t 3.430.2.7 Hospit a .3.124553 l .8 2022-02-19 2022-02-19 Surgery Varela, 1.2.840.1 [id number] Methodi 08:00:00 11:30:00 Romero. 28698.1.1 860 s t 3.430.2.7 Hospit a .3.776305 l .8 2022-02-19 2022-02-19 Outpatient VARELA, [facility] [id number] [place] 08:00:00 08:00:00 [facility] 2022-02-14 2022-02-14 Pre-Admiss Varela, 1.2.840.1 [id number] Methodi 11:10:00 12:10:00 ion Luis Slater 90516.1.1 228 s t Testing 3.430.2.7 Hospit a .3.199958 l .8 2022-02-14 2022-02-14 Pre-Admiss Varela, 1.2.840.1 [id number] Methodi 11:10:00 12:10:00 loco Luis Slater 26334.1.1 228 s t Testing 3.430.2.7 Hospit a .3.632532 l .8 2022-02-14 2022-02-14 Travel 1.2.840.1 1.2.854.607 [id number] Methodi 00:00:00 00:00:[address] 3.430.2.7 0.2.7.3.698 Ho spita .3.584322 084.8 l .8 2022-02-14 2022-02-14 Travel 1.2.840.1 1.2.111.774 [id number] Methodi 00:00:00 00:00:[address] 3.430.2.7 0.2.7.3.698 Ho spita .3.814291 084.8 l .8 2022-01-13 2022-01-13 Outpatient AVERY [facility] [id number] [place] 16:30:00 17:00:13 [facility] 2021-05-13 2021-05-13 [facility] [id number] Univers 14:45:00 15:15:47 ALEJANDRODANIELLA walls [facility] 2021-04-24 2021-04-24 [facility] [id number] Univers 13:00:00 23:59:00 ALEJANDRODANIELLA walls [facility] 2021-04-24 2021-04-24 [facility] 1.2.840.114 [id number] Univers 11:55:52 23:59:00 Encounter Alejandro [facility] 350.1.13.10 it[place] [id number] [address] ([facility]) 2021-04-11 2021-04-11 Outpatient [facility] [id number] Univers 08:55:00 23:59:00 ALEJANDRO walls [facility] 2021-04-11 2021-04-11 Out[facility] [id number] Univers 08:45:00 09:26:32 ALEJANDRO walls [facility] 2021-04-11 2021-04-11 Office [facility] 1.2.867.319 [id number] Univers 08:45:00 09:26:32 Visit Alejandro [facility] 350.1.13.10 it y of [place] 4.2.7.2.686 Grey as INGRID?BLEA [id number] [address] MEDICAL OFFICE BUILDING 2021-04-11 2021-04-11 Orders Doctor HEMA 1.2.840.114 [id number] Univers 00:00:00 00:00:00 Only Unassigned, KIMBERLEE 350.1.13.10 ity of [place] [facility] 4.2.7.2.686 Grey as [id number] [facility] 009 Branch 2021-04-04 2021-04-04 Outpatient Kandi [facility] [id number] [facility] 08:45:00 08:45:00 ALEJANDRO ity of [facility] 2021-03-26 2021-03-26 Orders Doctor GARRIDO 1.2.840.[id number] [place] [address] 00:00:00 00:00:00 Only UnassignedKIMBERLEE 350.1.13.10 ity [place] [facility] 4.2.7.2.686 Grey as [id number] [facility] 009 Branch 2020-12-25 2020-12-25 [facility] [id number] [place] 00:00:00 00:00:00 LUIS Adalberto Jennifer i st 2020-12-17 2020-12-17 Orders Arina Villafana ALVAREZ HOGAN 1.2.840. 114 [id number] [place] 00:00:00 00:00:00 Only Arina Villafana 350.1.13.[address] [facility] 9.2.7.2.686 [id number] 3 2020-12-04 2020-12-04 Office Avery ALVAREZ HOGAN 1.2.136.353 [id number] [place] 14:07:26 15:10:45 Visit Luis MILLER 350.1.13.58 [facility] 9.2.7.2.686 [id number] 3 2020-08-13 2020-08-14 Emergency [facility] 1.2.669.253 [id number] [facility] 22:12:00 00:10:00 Ana Skelton 350.1.13.10 i ty of [place] [id number] [facility] 084 Branch 2020-08-13 2020-08-14 Emergency [facility] 1.2.776.590 [id number] 22:12:00 00:10:00 Ana Chau [place] 350.1.13.10 [place] 4.2.7.2.686 [place] [id number] 2020-08-13 2020-08-13 Emergency X [facility] ERT [id number] [facility] 21:52:00 21:52:00 [facility] Results Test Description Test Time Test Comments Results Result Comments Source Surgical pathology request 2022-02-24 22:41:19 Test Item Value Reference Range Interpretation Comme nts Case number (test code = 7159415) [id number] Surgical pathology report (test code = See link below for PDF Lab R eport 2255) Result status (test code = 4727533) This is Final Report for [id number] [facility] [id number] 22:41:19 Test Item Value Reference Range Interpretation Comments Case number (test code = [id number]) Surgical pathology See link below for report (test code = PDF Lab Report 2255) Result status (test code This is Final Report = [id number]) for [id number] [facility] [id number] 22:41:19 Test Item Value Reference Range Interpretation Comments Case number (test code = [id number]) Surgical pathology See link below for report (test code = PDF Lab Report 2255) Result status (test code This is Final Report = [id number]) for [id number] [facility] Pre/Post [id number] 23:55:58 Test Item Value Reference Range Interpretation Comments Ventricular rate (test 62 code = 253) Atrial rate (test code 62 = 255) [place] interval (test code 160 = 266) QRSD [...] available-Electronical ly Signed By Awilda Cloud MD ([id number]) on 02/14/2022 5:55:55 PM [facility] Pre/Post [id number] 23:55:58 Test Item Value Reference Range Interpretation Comments Ventricular rate (test 62 code = 253) Atrial rate (test code 62 = 255) [place] interval (test code 160 = 266) QRSD [...] available-Electronical ly Signed By Awilda Cloud MD ([id number]) on 02/14/2022 5:55:55 [facility] [id number] 23:55:58 Test Item Value Reference Range Interpretation Comments Ventricular rate (test 62 code = 253) Atrial rate (test code 62 = 255) [place] interval (test code 160 = 266) QRSD [...] available-Electronical ly Signed By Awilda Cloud MD ([id number]) on 02/14/2022 5:55:55 PM [facility] (COVID-19) RNA [Presence] in Respiratory specimen by LILIANA with probe [id number] 17:26:07 Test Item Value Reference Range Interpretation Comments SARS-CoV-2 (COVID-19) RNA Not detected [Presence] in Respiratory specimen by LILIANA with probe detection (test code = 39427-5) Whether patient is employed in a Unknown healthcare setting (test code = 03565-9) Whether the patient has symptoms Unknown related to condition of interest (test code = 37392-3) Whether the patient was Unknown hospitalized for condition of interest (test code = 41028-3) Whether the patient was admitted Unknown to intensive care unit (ICU) for condition of interest (test code = 24856-3) Whether patient resides in a Unknown congregate care setting (test code = 31887-1) status (test code = Unknown 80736-3) Date and time of symptom onset Unknown (test code = 21332-1) JOLYNN NAMRS-CoV-2 (COVID-19) RNA [Presence] in Respiratory specimen by LILIANA with probe [id number] 07:59:39 Test Item Value Reference Range Interpretation Comments SARS-CoV-2 (COVID-19) RNA Not detected Not-Detected [Presence] in Respiratory specimen by LILIANA with probe detection (test code = 99093-7) Whether patient is employed in a healthcare setting (test code = 65025-9) Whether the patient has symptoms related to condition of interest (test code = 09590-9) Patient was hospitalized because of this condition (test code = 46538-1) Whether the patient was admitted to intensive care unit (ICU) for condition of interest (test code = 92318-7) Whether patient resides in a congregate care setting (test code = 12485-6) JOLYNN ADAN
[2022-08-26 17:38] LABS: Potassium 3.3 mEq/L (3.5-5.1); Troponin High Sensitivity 5.6 pg/mL (<58.9)
[2022-08-26 17:41] LABS: Absolute Lymphocytes (CBC) 2.5 K/uL (0.7-4.9); Hematocrit 48.3 % (39.6-49.0); Lymphocytes % 24.6 % (15.3-44.8); MCV 95.1 fL (80-100); MPV 8.5 fL (7.6-11.3); RBC Red Blood Cell Count 5.08 M/uL (4.33-5.43)
[2022-08-26 17:57] LABS: Protime INR 1.05
--- NOTE | 2022-08-26 18:07 | RAD REPORT ---
EXAM DESCRIPTION: Aishat Single View08/26/2022 5:35 pm CLINICAL HISTORY: CHEST PAIN COMPARISON: Chest Single View dated 08/28/2020; Abdomen 1 View (KUB) dated 08/26/2020; Chest Single Vi ew dated 08/26/2020; Chest Single View dated 08/12/2020 TECHNIQUE: Portable AP view of the chest. FINDINGS: Improving right basilar patchy airspace opacification. Central and left more than right pe rihilar interstitial prominence, stable, may relate to central congestion or perihilar airspace disea se. No pneumothorax or effusion. The cardiomediastinal contours are unremarkable. IMPRESSION: Improving right basilar patchy airspace opacities. Otherwise stable findings as above.
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
--- NOTE | 2022-08-26 18:43 | RAD REPORT ---
EXAM DESCRIPTION: CT - CTHCSPWOC - 08/26/2022 6:09 pm CLINICAL HISTORY: left arm numbness, pain COMPARISON: [id number] dated 09/09/2008; [id number] dated 06/25/2007 TECHNIQUE: Axial thin cut noncontrast CT images of the head were obtained. Axial thin cut noncontrast CT images of the cervical spine were obtained. Multiplanar reformatted images were generated and reviewed. All CT scans are performed using dose optimization technique as appropriate and may include automated exposure control or mA/KV adjustment according to patient size. FINDINGS: CT HEAD WITHOUT CONTRAST: No acute hemorrhage, hydrocephalus or extra-axial collection is identified.No areas of brain edema or midline shift. The paranasal sinuses and mastoids are clear.The calvarium is intact. CT CERVICAL SPINE WITHOUT CONTRAST: No fracture or subluxation. Reversal of cervical lordosis, which may be positional or secondary muscl e spasm. No prevertebral soft tissues swelling is identified. IMPRESSION: No acute traumatic intracranial or cervical spine findings.
[2022-08-26] MEDS ORDERED: DIPHENHYDRAMINE 50 MG/ML VIAL ONE (18:45)
[2022-08-26] MEDS ORDERED: FAMOTIDINE 20 MG/2 ML VIAL IV ONE (18:46)
[2022-08-26] MEDS ORDERED: dexAMETHasone 10 MG/ML VIAL ONE (18:46)
[2022-08-26] MEDS ORDERED: ONDANSETRON 4 MG/2 ML VIAL ONE (19:03)
[2022-08-26] MEDS ORDERED: MORPHINE 4 MG/ML SYR ONE (19:03)
--- NOTE | 2022-08-26 19:17 | RAD REPORT ---
EXAM DESCRIPTION: CT - Chest For Pe Angio - 08/26/2022 6:29 pm CLINICAL HISTORY: CHEST PAIN COMPARISON: Thorax Wo Con dated 06/13/2022; Chest For Pe Angio dated 08/26/2020 TECHNIQUE: Thin axial CT images of the chest were obtained following administration of 100 mL Isovue 370 IV contrast. Multiplanar reconstructions, and maximum intensity projection reconstructions were generated and reviewed. Exam utilizes a protocol for optimal evaluation of pulmonary arterial tree. All CT scans are performed using dose optimization technique as appropriate and may include automated exposure control or mA/KV adjustment according to patient size. FINDINGS: Pulmonary arteries are normal. No emboli or other suspicious finding. No acute or signific ant aorta findings. No mass or infiltrate in the lung parenchyma. Stable reticular and ground-glass opacities, upper lobe predominant, and extending peripherally since the prior exam. No pleural thickening or pleural effus ion. No pneumothorax. No abnormal mediastinal or hilar masses or lymphadenopathy seen. No chest wall mass or abnormal axill iary lymphadenopathy. Partially visualized supraumbilical midline fat containing hernia IMPRESSION: No evidence of acute central pulmonary emboli. Stable reticular and ground-glass opacities, for the upper lobe and peripheral predominance, suggesti ng scarring or sequelae of nonspecific interstitial pneumonitis.
[2022-08-26] MEDS ORDERED: ALPRAZOLAM 0.25 MG TABLET PO PRN (20:17)
[2022-08-26] MEDS ORDERED: ACETAMINOPHEN 500 MG TAB PO PRN (20:17)
--- NOTE | 2022-08-26 20:17 | EKG ---
Test Date: 2022-08-26 Test Time: 17:09:37 Fur Weigher: RACHID MEASUREMENT RESULTS: Intervals: Rate: 102 WI: 150 QRSD: 102 QT: 362 QTc: 471 [place]: P: 28 WI: 150 QRS: -72 T: 27 INTERPRETIVE STATEMENTS: Sinus tachycardia Left anterior fascicular block Cannot rule out Inferior infarct (masked by fascicular block?), age undetermined Abnormal ECG Compared to ECG 08/26/2020 16:48:12 Left anterior fascicular block now present Myocardial infarct finding now present Sinus rhythm no longer present Fusion complex(es) no longer present Left-axis deviation no longer present Incomplete right bundle-branch block no longer present Electronically Signed On 08-26-22 20:17:16 CDT by Wenceslao Baez
--- NOTE | 2022-08-26 20:27 | P.HP ---
Certification for Inpatient Patient admitted to: Observation With expected LOS: <2 Midnights Patient will require the following post-hospital care: None Practitioner: I am a practitioner with admitting privileges, knowledge of patient current condition, hospital course, and medical plan of care. Services: Services provided to patient in accordance with Admission requirements found in Title 42 Section 412.3 of the Code of Federal Regulations Patient History Date of Service: 08/26/22 Reason for admission: Chest pain rule out AZ History of Present Illness: 57-year-old male with a past medical history of obesity, tobacco use presents to the emergency room with chest pain. He reports chest pain started while mowing the yard today, radiates to the left chest, chest pain is constant 8 out of 10. He reports strong family history of heart disease with parents and grandparents, he denies history of hypertension, hyperlipidemia, history of AZ or CVA. He denies shortness of breath, diaphoresis, nausea vomiting, edema, dizziness. Laboratory evaluation Potassium 3.3, sodium normal, blood glucose 116, troponin normal at 5.6, BNP normal at 41, CBC unremarkable Chest x-ray IMPRESSION: Improving right basilar patchy airspace opacities. Otherwise stable findings as above CTA of the chest IMPRESSION: No evidence of acute central pulmonary emboli CT of the cervical spineIMPRESSION: No acute traumatic intracranial or cervical spine findings Allergies No Known Allergies Allergy (Verified 07/16/20 22:24) Home Medications: Albuterol Inhaler [Ventolin Inhaler*] 2 puff IH TID PRN #1 [email or web address] 08/28/20 Amoxicillin/Potassium Clav [Augmentin 500-125 Tablet] 1 each PO BID #14 tablet 08/28/20 Folic Acid 1 mg PO DAILY #90 tablet 08/28/20 Nicotine [Nicoderm] 21 mg TD DAILY #30 patch.td24 08/28/20 Pantoprazole [Protonix Tab*] 40 mg PO DAILYAC #30 tab 08/28/20 Thiamine HCl 100 mg PO DAILY #90 tablet 08/28/20 - Past Medical/Surgical History Diabetic: No -: Chronic Knee Pain -: Diverticulitis -: Opioid/benzo abuse -: Knee Surgery -: Ankle Surgery -: colostomy -: Abdominal surgery requiring wound VAC Psychosocial/ Personal History: Patient lives at home with his , has home health/hospital bed - Family History Mother -: Heart disease Father -: Heart disease - Social History Alcohol use: No CD- Drugs: Yes Caffeine use: No Review of Systems 10-point ROS is otherwise unremarkable Physical Examination - Physical Exam General: Alert, In no apparent distress HEENT: Atraumatic, Normocephalic, PERRLA Neck: Supple, 2+ carotid pulse no bruit, JVD not distended Respiratory: Clear to auscultation bilaterally, Normal air movement Cardiovascular: No edema, Normal pulses, Regular rate/rhythm Capillary refill: <2 Seconds Gastrointestinal: Normal bowel sounds, Non-distended (Abdominal obesity) Musculoskeletal: No clubbing, No swelling Neurological: Normal speech, Normal strength at 5/5 x4 extr - Studies Laboratory Data (last 24 hrs) 08/26/22 17:10: PT 12.4, INR 1.05 08/26/22 17:10: WBC 10.10, Hgb 16.0, Hct 48.3, Plt Count 265 08/26/22 17:10: Sodium 139, Potassium 3.3 L, BUN 8, Creatinine 1.14, Glucose 116 H, Magnesium 2.0 Assessment and Plan - Plan Assessment plan Chest pain rule out AZ Mild hypokalemia Morbid obesity Tobacco use DVT prophylaxis Assessment plan Chest pain rule out AZ-telemetry, cardiology consult, trend troponins, trend BMP, aspirin, antilipid, beta-george, as needed nitro, as needed analgesics, antiemetics Hypokalemia-trend electrolytes replace as needed Morbid obesity-ADA diet Tobacco use-educate on tobacco cessation DVT prophylaxis-Lovenox Diet n.p.o. after midnight Full code DVT Lovenox Discharge Plan: Home Plan to discharge in: 24 Hours - Advance Directives Does patient have a Living Will: No Does patient have a Durable POA for Healthcare: No - Code Status/Comfort Care Code Status: Full Code Physician Review: Patient Assessed, Agree with Above Assessment and Plan Time Spent Managing Pts Care (In Minutes): 55
[2022-08-26] MEDS ORDERED: POTASSIUM 25 MEQ EFFERV TAB PO ONE (21:19)
[2022-08-26] MEDS ORDERED: NITROGLYCERIN 0.4 MG/TAB SL PRN (21:27)
[2022-08-26 21:29] VITALS: BMI 42.8
[2022-08-26 22:14] LABS: Urine Bacteria <20 /HPF (<20); Urine Bilirubin NEGATIVE (Negative); Urine Blood 2+ (Negative); Urine Clarity Clear (Clear); Urine Color Light-Yellow (Yellow); Urine Glucose NEGATIVE (Negative); Urine Mucus Slight /HPF (None Seen); Urine Protein TRACE (Negative); Urine RBC <5 /HPF (None Seen); Urine Urobilinogen Normal (Normal); Urine pH 5.5 (5.0-7.0)
[2022-08-26 22:22] LABS: Specific Gravity > 1.020 (1.005-1.030)
[2022-08-26] MEDS: NICOTINE 21 MG/PAT TD SCH (22:30)
[2022-08-27] MEDS: MORPHINE 2 MG/ML SYR IV PRN ×4 (00:30→18:41)
[2022-08-27 03:49] LABS: Absolute Lymphocytes (CBC) 0.7 K/uL (0.7-4.9); Hematocrit 45.9 % (39.6-49.0); Lymphocytes % 11.6 % (15.3-44.8); MCV 95.6 fL (80-100); MPV 8.8 fL (7.6-11.3)
[2022-08-27 04:08] LABS: Potassium 4.4 mEq/L (3.5-5.1)
[2022-08-27 04:41] LABS: Phosphorus 0.8 mg/dL (2.5-4.9)
[2022-08-27 05:20] LABS: Blood Morphology Comment NOT SEEN (NOT SEEN); Platelet Estimate ADEQ
[2022-08-27] MEDS ORDERED: SODIUM PHOSPHATE 30 MM in NA CHLORIDE 0.9% 500 ML IV ONE (08:00)
[2022-08-27] MEDS: ENOXAPARIN 40 MG/0.4 ML SQ SCH (08:13)
[2022-08-27] MEDS: ASPIRIN 81 MG CHEWABLE TABLET PO SCH (08:55)
[2022-08-27] MEDS: ONDANSETRON 4 MG/2 ML VIAL IV PRN ×2 (13:03→18:41)
[2022-08-27] MEDS ORDERED: HYOSCYAMINE SULF 0.125 MG TAB PO ONE (15:09)
[2022-08-27] MEDS ORDERED: NA CHLORIDE 0.9% 250 ML IV ONE (15:09)
--- NOTE | 2022-08-27 17:02 | EKG ---
Test Date: 2022-08-27 Test Time: 06:13:04 Compliance Professional: YANDEL MEASUREMENT RESULTS: Intervals: Rate: 75 WA: 152 QRSD: 110 QT: 408 QTc: 455 [place]: P: 21 WA: 152 QRS: -56 T: 18 INTERPRETIVE STATEMENTS: Normal sinus rhythm Left anterior fascicular block Abnormal ECG Compared to ECG 08/26/2022 17:09:37 Sinus tachycardia no longer present Myocardial infarct finding no longer present Electronically Signed On 08-27-22 17:02:16 CDT by Bhavesh Antonio
[2022-08-27 17:38] LABS: Albumin 3.8 g/dL (3.4-5.0); Bilirubin Total 0.4 mg/dL (0.2-1.0); Magnesium 2.2 mg/dL (1.6-2.4); Phosphorus 3.2 mg/dL (2.5-4.9); Protein, Total 8.4 g/dL (6.4-8.2)
[2022-08-27] MEDS: MAGNESIUM CITRATE 300 ML BOT PO SCH ×2 (18:00→18:40)
--- NOTE | 2022-08-27 18:30 | RAD REPORT ---
EXAM DESCRIPTION: RAD - Abdomen 1 View (KUB) - 08/27/2022 6:19 pm CLINICAL HISTORY: abd pain COMPARISON: Abdomen 1 View (KUB) dated 08/26/2020; Abdomen Pelvis W Contrast dated 08/24/2020 FINDINGS: Mildly dilated small bowel present centrally. Moderate stool in the colon. No acute osseou s abnormality.Visualized lungs are unremarkable.No abnormal calcifications. IMPRESSION: Mildly dilated central loops of small bowel could reflect a bowel obstruction or ileus.
[2022-08-27] MEDS: ATORVASTATIN 40 MG TAB PO SCH (21:00)
[2022-08-27] MEDS: NICOTINE 21 MG/PAT TD SCH (21:13)
[2022-08-27] MEDS ORDERED: MINERAL OIL 30 ML UCUP PO ONE (21:46)
--- NOTE | 2022-08-27 21:50 | CON ---
Date of Consultation: 08/27/2022 Reason For Consultation: Chest pain. History Of Present Illness: A 57-year-old male, active smoker, no significant medical history, prese nted with chest pain while he was mowing the yard yesterday. It radiates to the left shoulder and la sted for few minutes and resolved. Patient denies having any further chest pain since he was admitte d. No previous history of coronary artery disease and no shortness of breath on exertion. Past Medical History: None. Medications: Refer to reconciliation sheet for detailed list. Allergies: IODINE. Family History: No premature coronary artery disease or cancer. Social History: Does not smoke or drink. Review of Systems: All systems reviewed and are negative except as mentioned in HPI. Physical Examination: Vital signs: Reviewed. Head and Neck: Pupils are equal, reactive to light. Intact eye movements. No JVD. No cervical lym phadenopathy. Neck: Supple. Thyroid is not enlarged. Lungs: Clear to auscultation bilaterally. No rhonchi, wheezing, or crackles. No accessory muscle u se. Heart: Regular rate and rhythm. No extra sounds. Abdomen: Soft, nontender. Bowel sounds positive. No organomegaly. No masses or hernia. No rigidi ty or rebound. Extremities: No edema, clubbing, or cyanosis. Intact pulses. Skin: No rashes. Neurologic: Alert, awake, oriented x3. No focal deficits appreciated. Investigations: Troponins x3 are negative. NT-proBNP is negative. BUN is 8, creatinine 1.1, and he moglobin is 15.2. Assessment/recommendations: 1.Chest pain. Cardiac enzymes are negative. Ruled out myocardial infarction. Patient has been [facility] pain free. Patient can be released from cardiovascular standpoint and I will arrange for him to [facility] outpatient stress test and echocardiogram. 2.Dyslipidemia. Continue statin that was initiated during this hospital stay. SR/MODL Voice ID: [id number] Report ID: [id number]
[2022-08-27] MEDS: HYDROMORPHONE HCL 0.5 MG/0.5 ML INJ IV PRN (22:05)
[2022-08-27] MEDS: NA CHLORIDE 0.9% 1,000 ML IV SCH (22:15)
[2022-08-27] MEDS ORDERED: DIPHENHYDRAMINE 50 MG/ML VIAL IV ONE (22:39)
[2022-08-28] MEDS: HYDROMORPHONE HCL 0.5 MG/0.5 ML INJ IV PRN ×5 (01:58→20:44)
[2022-08-28] MEDS: ONDANSETRON 4 MG/2 ML VIAL IV PRN (01:58)
--- NOTE | 2022-08-28 08:44 | RAD REPORT ---
EXAM DESCRIPTION: CT - Abdomen Pelvis W Contrast - 08/28/2022 2:55 am CLINICAL HISTORY: abd pain; COMPARISON: Abdomen Pelvis W Contrast dated 08/24/2020; Abdomen Pelvis W Contrast dated 08/12/2020; Abdomen Pelvis W Contrast dated 07/16/2020; Abdomen Pelvis W Contrast dated 07/13/2020; Abdomen 1 View (KUB) dated 08/27/2022 TECHNIQUE: Thin cut axial CT imaging of the abdomen and pelvis was performed following intravenous a dministration of Isovue 300. Multiplanar reformats were generated and reviewed. All CT scans are performed using dose optimization technique as appropriate and may include automated exposure control or mA/KV adjustment according to patient size. FINDINGS: No suspicious findings in the lung bases. The liver, spleen, and pancreas show no suspicious findings. Gallbladder and biliary tree are also wi thout suspicious finding. Symmetric renal function is seen with no hydronephrosis or suspicious renal mass. Moderately dilated proximal small bowel loops, with moderate fluid distention of the stomach. Focal t ransition to nondistended small bowel in the abdominal midline anteriorly, approximately at the level of the umbilicus, see series 3 of 3 image 75, and series 302, image 42 among others. Short segment o f bowel wall thickening distal to the transition point. . No free air, localize collections, or infla mmatory stranding. Mild free situs, most notably along the distal dilated small bowel loops. Diastasi s recti with a wide necked supraumbilical ventral hernia, with some of the dilated small bowel presen t within the hernia, however it does not appear to be the cause of the obstruction. The appendix is u nremarkable. Sequelae of prior distal colectomy with anastomosis at the level of the sigmoid. No susp icious mass or bulky lymphadenopathy. The urinary bladder is suboptimally distended, limiting evaluat ion, with nonspecific hyperdense material within, could relate to some excreted contrast. Moderate pr ostatomegaly. No suspicious bony findings. IMPRESSION: Findings suggestive of small bowel obstruction, with a focal transition point in the abd ominal midline anteriorly, approximately at the level of the umbilicus. Short segment of bowel wall t hickening distal to the transition point, suggest segmental enteritis. Mild free air situs. Other findings as above. Nonspecific hyperdense material within the urinary bladder, could relate to some excreted contrast. P lease correlate for presence of hematuria.
[2022-08-28] MEDS: NA CHLORIDE 0.9% 1,000 ML IV SCH ×2 (09:11→17:53)
[2022-08-28] MEDS: ASPIRIN 81 MG CHEWABLE TABLET PO SCH (09:12)
[2022-08-28] MEDS: ENOXAPARIN 40 MG/0.4 ML SQ SCH (09:13)
[2022-08-28] MEDS ORDERED: MINERAL OIL 30 ML UCUP PO ONE (14:14)
--- NOTE | 2022-08-28 17:55 | PN ---
Date of Progress Note: 08/28/2022 Subjective: Seen by bedside. Doing well. No further chest pain. Apparently, he was found to have a hernia that is producing his pain in the abdomen that radiates to the chest. Cardiac enzymes are ne gative. No exertional chest pain and he is usually active without difficulties that limits his exerc ise capacity. Review of Systems: No chest pain, shortness of breath, orthopnea, or cough. No nausea, has abdominal discomfort. No hi story of urinary urgency. All other systems reviewed are negative. Physical Examination: Vital Signs: Reviewed. Head and Neck: Pupils are equal, reactive to light. Intact eye movements. No JVD. No cervical lym phadenopathy. Neck: Supple. Thyroid is not enlarged. Lungs: Clear to auscultation bilaterally. No rhonchi, wheezing, or crackles. No accessory muscle u se. Heart: Regular rate and rhythm. No extra sounds. Abdomen: Soft, nontender. Bowel sounds positive. No organomegaly. No masses or hernia. No rigidi ty or rebound. Extremities: No clubbing or cyanosis. Intact pulses. Skin: No rash. Neurologic: Alert, awake. No acute focal deficits appreciated. Investigations: Labs reviewed. Assessment/recommendation: 1.Chest pain. He claimed that his pain starts in the belly that radiates to the chest. Cardiac enz ymes are negative and he is usually very active without symptoms. As outpatient, if he needs hernia surgery to proceed at low cardiac risk for this surgery. 2.Cardiac preoperative risk assessment. The patient is active, can do more than 4 METS without symptoms and I believe he will surgery very well to proceed if indicated. /GREY Voice ID: [id number] Report ID: [id number]
[2022-08-28] MEDS: ATORVASTATIN 40 MG TAB PO SCH (20:45)
[2022-08-28] MEDS: NICOTINE 21 MG/PAT TD SCH (20:46)
[2022-08-29] MEDS: HYDROMORPHONE HCL 0.5 MG/0.5 ML INJ IV PRN ×2 (00:15→06:03)
[2022-08-29 02:23] VITALS: O2SAT 96
[2022-08-29] MEDS: NA CHLORIDE 0.9% 1,000 ML IV SCH (03:34)
[2022-08-29 07:51] LABS: Magnesium 2.2 mg/dL (1.6-2.4); Phosphorus 2.8 mg/dL (2.5-4.9)
[2022-08-29] MEDS: ASPIRIN 81 MG CHEWABLE TABLET PO SCH (08:29)
[2022-08-29] MEDS: ENOXAPARIN 40 MG/0.4 ML SQ SCH (08:30)
[2022-08-29 11:51] VITALS: BP 122/85; TEMP 96.8
== END 2022-08-29 12:33 | disposition home or self-care (01) | DRG 394 ==
LOC: ER 16:58 → ERHOLD 20:11 → 2ND 21:16 → OBSVTOIN 08-27 21:48
PROVIDERS: ADMIT Hospitalist; ATTEND Hospitalist
DX: K46.9 Unspecified abdominal hernia without obstruction or gangrene (principal); Z68.41 Body mass index [BMI] 40.0-44.9, adult; E66.01 Morbid (severe) obesity due to excess calories; G89.29 Other chronic pain; E87.6 Hypokalemia; E78.5 Hyperlipidemia, unspecified; F17.210 Nicotine dependence, cigarettes, uncomplicated; Z93.3 Colostomy status; Z79.899 Other long term (current) drug therapy; Z20.822 Contact with and (suspected) exposure to COVID-19
CPT/HCPCS: 36415; 70450; 71045; 71275; 72125; 74018; 74177; 80048; 80053; 80061; 81001; 83735; 83880; 84100; 84484; 85025; 85610; 87635; 93005; 96374; 96375; 99285; J1100; J1170; J1200; J1650; J2270; J2405; J7030; J7040; J7050; Q9967

== ENCOUNTER 2023-05-24 19:15 | Inpatient (IN) | payer OTHER ==
[2023-05-24] MEDS: GABAPENTIN 300 MG CAP PO SCH (09:00)
[2023-05-24] MEDS ORDERED: FENTANYL CITR 100 MCG/2 ML ONE (19:59)
[2023-05-24 20:21] LABS: Absolute Basophils 0.1 K/uL (0-0.5); Absolute Eosinophils 0.2 K/uL (0-0.5); Absolute Lymphocytes (CBC) 2.4 K/uL (0.7-4.9); Absolute Monocytes 0.7 K/uL (0.1-1.3); Absolute Neutrophil 9.6 K/uL (1.8-8.0); Basophils % 0.4 % (0-1.3); Eosinophils % 1.9 % (0-4.4); Hematocrit 40.5 % (39.6-49.0); Hemoglobin 13.3 g/dL (13.6-17.9); Lymphocytes % 18.5 % (15.3-44.8); MCH 31.3 pg (27.0-35.0); MCHC 32.8 g/dL (32.0-36.0); MCV 95.3 fL (80-100); Monocytes % 5.2 % (3.3-12.3); Nucleated Red Blood Cells % 0.1 % (0-0); RBC Red Blood Cell Count 4.25 M/uL (4.33-5.43); Red Cell Distribution Width 13.7 % (12.1-15.2)
[2023-05-24] MEDS ORDERED: FAMOTIDINE 20 MG/2 ML VIAL IV ONE (20:29)
[2023-05-24] MEDS ORDERED: DIPHENHYDRAMINE 50 MG/ML VIAL ONE (20:29)
[2023-05-24 20:46] LABS: Blood Morphology Comment NOT SEEN (NOT SEEN); MPV 8.7 fL (7.6-11.3); Platelet Estimate ADEQ; Platelets 297 thou/uL (152-406); White Blood Cell Scan OK (OK)
[2023-05-24 20:49] LABS: Albumin 3.1 g/dL (3.4-5.0); Albumin/Globulin Ratio 0.8 (1.1-1.8); Anion Gap 7.3 mEq/L (5.0-15.0); Bilirubin Direct 0.1 mg/dL (0-0.2); Bilirubin Indirect, Calculated 0.2 mg/dL (0.2-0.8); Bilirubin Total 0.3 mg/dL (0.2-1.0); Globulin 3.7 g/dL (2.3-3.5); Magnesium 1.5 mg/dL (1.6-2.4); Potassium 3.3 mEq/L (3.5-5.1); Protein, Total 6.8 g/dL (6.4-8.2); Troponin High Sensitivity 7.3 pg/mL (<58.9)
[2023-05-24 21:44] LABS: PTT, Activated Partial Thromb 39.5 SECONDS (24.3-36.9); Protime INR 1.19
--- NOTE | 2023-05-24 21:48 | RAD REPORT ---
EXAM DESCRIPTION: CT - Chest For Pe Angio - 05/24/2023 9:35 pm CLINICAL HISTORY: CHEST PAIN COMPARISON: Chest For Pe Angio dated 08/26/2022; Thorax Wo Con dated 06/13/2022; Chest For Pe Angio da jhonny 08/26/2020 TECHNIQUE: Dynamically enhanced axial 3 mm thick images of the chest were obtained during administra tion of <100> mL Isovue 370 IV contrast. Coronal and oblique reconstruction images were generated and reviewed. Exam utilizes a protocol for optimal evaluation of pulmonary arterial tree. Maximum intensity projections 3D imaging was utilized All CT scans are performed using dose optimization technique as appropriate and may include automated exposure control or mA/KV adjustment according to patient size. FINDINGS: Chest Wall: No suspicious thyroid nodules or pathologic lymphadenopathy. Lungs: Mild paraseptal emphysema. Reticulation and cylindrical bronchiectasis in the upper lobes bila terally. Pleura: No significant effusions or pneumothorax. Mediastinum/xiao: Reactive size hilar lymph nodes. Pulmonary arteries/Aorta: Suboptimal contrast opacification. Limited evaluation of the subsegmental p ulmonary arteries. No filling defect identified. No aortic aneurysm. Heart: No significant pericardial effusion. Cardiomegaly. Upper abdomen: No acute abnormality.Fat containing ventral hernia. Bones: No acute abnormality. IMPRESSION: Negative for clinically significant pulmonary embolism. Evaluation of the subsegmental p ulmonary arteries limited by poor contrast opacification. 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 No superimposed acute process.
[2023-05-24 21:57] LABS: Albumin 3.2 g/dL (3.4-5.0); Albumin/Globulin Ratio 0.8 (1.1-1.8); Anion Gap 7.5 mEq/L (5.0-15.0); Bilirubin Total 0.3 mg/dL (0.2-1.0); Potassium 3.5 mEq/L (3.5-5.1); Protein, Total 7.2 g/dL (6.4-8.2)
[2023-05-24] MEDS ORDERED: NA CHLORIDE 0.9% 100 ML ONE (22:35)
[2023-05-24] MEDS ORDERED: CEFTRIAXONE 2000 MG/VIAL ONE (22:35)
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
--- NOTE | 2023-05-24 22:35 | ER ---
Nurse's Notes [facility] Name: Issac Ortiz Age: 58 yrs Sex: Male : 1965 Arrival Date: 05/24/2023 Time: 19:15 Bed 2 Private MD: Diagnosis: Chest pain;Dyspnea;Fever;Leukocytosis Presentation: 05/23 19:25 Chief complaint: Patient states: chest pain radiating down left arm, with SOB for 3 km8 days; pt also reports cough and congestion for 3 days. Coronavirus screen: Client denies travel out of the [place] in the last 14 days. Ebola Screen: No symptoms or risks identified at this time. Initial Sepsis Screen: Does the patient meet any 2 criteria? RR > 20 per min. HR > 90 bpm. Yes Does the patient have a suspected source of infection? No. Patient's initial sepsis screen is negative. Risk Assessment: Do you want to hurt yourself or someone else? Patient reports no desire to harm self or others. Onset of symptoms was May 21, 2023. 19:25 Method Of Arrival: Wheelchair km8 19:25 Acuity: RAGHAV 2 km8 Triage Assessment: 19:27 General: Appears uncomfortable, Behavior is cooperative, appropriate for age. Pain: km8 Complains of pain in anterior aspect of left upper chest Pain radiates to left arm Pain currently is 6 out of 10 on a pain scale. Quality of pain is described as pressure, Pain began 2-3 days ago. Is intermittent. EENT: Reports nasal congestion. Neuro: Level of Consciousness is awake, alert, obeys commands, Oriented to person, place, time, situation. Cardiovascular: Reports chest pain, shortness of breath, Patient's skin is warm and dry. Chest pain is described as mild, quality is pressure, is located in left anterior radiates to left arm(s) began 3 days [employer] episodes are intermittent. Respiratory: Reports shortness of breath cough that is productive, Airway is patent Respiratory effort is even, labored, Respiratory pattern is symmetrical. GI: No signs and/or symptoms were reported involving the gastrointestinal system. : No signs and/or symptoms were reported regarding the genitourinary system. Derm: No signs and/or symptoms reported regarding the dermatologic system. Skin is intact, Skin is dry, Skin is pink, warm \T\ dry. normal, Skin temperature is warm. Musculoskeletal: No signs and/or symptoms reported regarding the musculoskeletal system. Range of motion: intact in all extremities. Historical: - Allergies: : No Known Allergies; - Home Meds: 19: Metformin Oral [Active]; other unknown medications [Active]; - PMHx: 19:27 ACCIDENT - FELL THRU ROOF; Chronic pain; Diverticulitis; Diabetes mellitus; Hypothyroidism; Hypercholesterolemia; - PSHx: 19: abd sx; Colostomy; 8 - Immunization history:: Adult Immunizations up to date. - Infectious Disease History:: Denies. - Social history:: Smoking status: Patient reports the use of cigarette tobacco products, smokes one-half pack cigarettes per day, Patient/guardian denies using alcohol, street drugs, the patient reports quitting approximately 5 years ago. - Family history:: not pertinent. Screenin:32 [facility] ED Fall Risk Assessment (Adult) History of falling in the last 3 months, tm6 including since admission No falls in past 3 months (0 pts) Confusion or Disorientation No (0 pts) Intoxicated or Sedated No (0 pts) Impaired Gait No (0 pts) Mobility Assist Device Used No (0 pt) Altered Elimination No (0 pt) Score/Fall Risk Level 0 - 2 = Low Risk Oriented to surroundings, Maintained a safe environment. Abuse screen: Denies threats or abuse. Denies injuries from another. Nutritional screening: No deficits noted. Tuberculosis screening: No symptoms or risk factors identified. Assessment: 19:30 General: Appears uncomfortable, Behavior is calm, cooperative. Pain: Complains of pain tm6 in left clavicle, anterior aspect of left upper chest and left breast Pain radiates to left arm Quality of pain is described as pressure. Neuro: Level of Consciousness is awake, alert, obeys commands, Oriented to person, place, time, situation. Cardiovascular: Reports chest pain, shortness of breath, Patient's skin is warm and dry. Rhythm is sinus rhythm. Respiratory: Reports shortness of breath at rest on exertion Airway is patent Respiratory effort is labored, Respiratory pattern is symmetrical. GI: No signs and/or symptoms were reported involving the gastrointestinal system. Abdomen is distended, obese. : No signs and/or symptoms were reported regarding the genitourinary system. EENT: No signs and/or symptoms were reported regarding the EENT system. Derm: No signs and/or symptoms reported regarding the dermatologic system. Musculoskeletal: No signs and/or symptoms reported regarding the musculoskeletal system. 19:31 Pain: Pain began 2-3 days ago. tm6 20:39 Reassessment: No changes from previously documented assessment. Patient and/or family vc1 updated on plan of care and expected duration. Pain level reassessed. Patient is alert, oriented x 3, equal unlabored respirations, skin warm/dry/pink. 21:50 Reassessment: Patient appears in no apparent distress at this time. Patient and/or vc1 family updated on plan of care and expected duration. Pain level reassessed. Patient is alert, oriented x 3, equal unlabored respirations, skin warm/dry/pink. Patient states feeling better. Patient states symptoms have improved. 23:00 Reassessment: No changes from previously documented assessment. Patient and/or family vc1 updated on plan of care and expected duration. Pain level reassessed. Patient is alert, oriented x 3, equal unlabored respirations, skin warm/dry/pink. 05/24 00:00 Reassessment: No changes from previously documented assessment. Patient and/or family vc1 updated on plan of care and expected duration. Pain level reassessed. Patient is alert, oriented x 3, equal unlabored respirations, skin warm/dry/pink. 00:53 Reassessment: No changes from previously documented assessment. Patient and/or family tm6 updated on plan of care and expected duration. Pain level reassessed. Patient is alert, oriented x 3, equal unlabored respirations, skin warm/dry/pink. Vital Signs: 05/23 19:25 BP 132 / 82; Pulse 102; Resp 22; Temp 100.8(O); Pulse Ox 97% on R/A; Weight 151.95 kg km8 (M); Height 5 ft. 10 in. (R); Pain 6/10; 19:30 BP 116 / 57; Pulse 100; Resp 19; Pulse Ox 95% on R/A; vc1 20:38 BP 111 / 60; Pulse 91; Resp 19; Pulse Ox 94% ; vc1 21:49 BP 100 / 61; Pulse 80; Resp 18; Pulse Ox 96% ; vc1 21:51 Temp 98.8(O); vc1 23:00 BP 103 / 59; Pulse 72; Resp 16; Pulse Ox 94% ; vc1 05/24 00:00 BP 133 / 73; Pulse 68; Resp 14; Pulse Ox 99% on R/A; vc1 00:52 BP 133 / 73; Pulse 70; Resp 17; Pulse Ox 94% on 2 lpm NC; Pain 0/10; tm6 05/23 19:25 Body Mass Index 48.07 (151.95 kg, 177.8 cm) km8 05/23 19:25 Pain Scale: Adult km8 00:52 Pain Scale: Adult tm6 ED Course: 05/23 19:20 Patient arrived in ED. gm2 19:22 Aristeo Gilliland MD is Attending Physician. rt 19:27 Triage completed. km8 19:27 Arm band placed on right wrist. km8 19:29 Di Zuleta, RN is Primary Nurse. tm6 19:29 EKG done, by ED staff, reviewed by Aristeo Gilliland MD. tm6 19:32 O2 via room air. tm6 19:32 Patient has correct armband on for positive identification. Placed in gown. Bed in low tm6 position. Call light in reach. Side rails up X 1. Provided Education on: plan of care. Client placed on continuous cardiac and pulse oximetry monitoring. NIBP monitoring applied. shelter monitor on. Pulse ox on. NIBP on. Door closed. Noise minimized. 19:57 Inserted saline lock: 22 gauge in right antecubital area, using aseptic technique. vc1 21:17 Inserted saline lock: 22 gauge in left hand, using aseptic technique. Blood collected. oe 21:36 CT Chest For PE Angio In Process Unspecified. EDMS 22:33 Jose Daniel Neal MD is Hospitalizing Provider. rt 05/24 00:27 No provider procedures requiring assistance completed. Patient admitted, IV remains in vc1 place. Administered Medications: 05/23 20:04 Drug: fentaNYL (PF) IVP 50 mcg IVP once Route: IVP; Site: right antecubital; vc1 05/24 00:30 Follow up: Response: No adverse reaction; Marked relief of symptoms; Pain is decreased vc1 05/23 20:35 Drug: MethylPrednisoLONE IVP 125 mg IVP once Route: IVP; Site: right antecubital; vc1 05/24 00:30 Follow up: Response: No adverse reaction; Marked relief of symptoms vc1 05/23 20:35 Drug: Famotidine IVP 20 mg IVP once; dilute with 10 mL 0.9% NaCl; give over 2 minutes vc1 Route: IVP; Site: right antecubital; 05/24 00:30 Follow up: Response: No adverse reaction vc1 05/23 20:35 Drug: diphenhydrAMINE IVP 50 mg IVP once Route: IVP; Site: right antecubital; vc1 05/24 00:30 Follow up: Response: No adverse reaction vc1 05/23 22:43 Drug: Rocephin - Rocephin (cefTRIAXone) IVPB 2 grams IVPB once over 30 mins; (mix in tm6 100 mL NS) Route: IVPB; Infused Over: 30 mins; Site: left wrist; 23:15 Follow up: IV Status: Completed infusion; IV Intake: 100ml vc1 Medication: 19:32 VIS not applicable for this client. tm6 Intake: 23:15 IV: 100ml; Total: 100ml. vc1 Outcome: 22:34 Decision to Hospitalize by Provider. rt 05/24 00:28 Condition: stable vc1 Instructed on the need for admit, 00:51 Admitted to Med/surg accompanied by tech, via stretcher, room 410, Report called to 6 report faxed to 4th floor 00:52 Patient left the ED. 6 Signatures: Dispatcher [employer] EDMS Valeriy Mead Vanessa RN RN vc1 Aristeo Gilliland MD MD rt Nay Curry 2 Fatimah Olvera RN RN km8 Di Zuleta RN RN tm6 Corrections: (The following items were deleted from the chart) 05/23 19:29 19:27 Home Meds: Unable to obtain; km8 km8
--- NOTE | 2023-05-24 22:46 | P.HP ---
Certification for Inpatient Patient admitted to: Observation With expected LOS: <2 Midnights Practitioner: I am a practitioner with admitting privileges, knowledge of patient current condition, hospital course, and medical plan of care. Services: Services provided to patient in accordance with Admission requirements found in Title 42 Section 412.3 of the Code of Federal Regulations Patient History Date of Service: 05/24/23 Reason for admission: fever/ CP History of Present Illness: 58 yrs old Male with past medical history of Chronic pain; Diverticulitis; Diabetes mellitus, Hypothyroidism; Hypercholesterolemia , came to ER with chest pain and shortness of breath which has been going on for the last 3 days and has been progressively worsening. Associated with chest discomfort. No nausea vomiting or diarrhea. Complains of fever. He also complains of bilateral lower extremity swelling. Denies any nausea vomiting or diarrhea. Patient was assessed in the ER and was admitted for further management Allergies Iodinated Contrast Media Allergy (Verified 08/26/22 21:46) Itching/Hives/Rash Home medications list reviewed: Yes Home Medications: Gabapentin 300 mg PO BIDP PRN 08/26/22 Mv-Min/Folic/K1/Lycopen/Lutein [Men 50 Plus Multivitamin Tab] 1 each PO DAILY 08/26/22 Aspirin Chewable [Aspirin Chewable*] 324 mg PO DAILY #60 tab.chew 08/27/22 Atorvastatin Calcium [Lipitor] 40 mg PO BEDTIME #30 tab 08/27/22 Azithromycin Tab [Zithromax*] 250 mg PO ZPAK #1 carl 08/27/22 Naph,Mb-Db/K pH,Mbdb [Neutra-Phos Packet] 1 each PO DAILY #15 packet 08/27/22 Temazepam [Restoril] 15 mg PO BEDTIME PRN #30 cap 08/27/22 predniSONE [Deltasone] 20 mg PO DAILY #5 tab 08/27/22 Docusate [Colace Cap] 100 mg PO BID #60 cap 08/29/22 Hydrocodone 10/APAP 325 [[place] 10/325] 1 tab PO Q12H PRN #30 tab 08/29/22 - Past Medical/Surgical History Diabetic: No Past Medical History: Reviewed- Non-Contributory -: Chronic Pain -: Diverticulitis -: Opioid/benzo abuse -: Hernia Past Surgical History: Reviewed- Non-Contributory -: Knee Surgery x 2 Right, x1 on left-Trauma from falling throug roof -: Right Ankle Surgery -: Bowel resection with colostomy-Later reversed -: Abdominal surgery requiring wound VAC Psychosocial/ Personal History: Patient lives at home with his , has home health/hospital bed - Family History Family History: Reviewed- Non-Contributory - Family History Mother -: Heart disease, Hypertension, Diabetes Father -: Heart disease Brother -: Hypertension, Diabetes - Social History Smoking Status: Never smoker Alcohol use: No CD- Drugs: Yes Caffeine use: Yes Review of Systems 10-point ROS is otherwise unremarkable Physical Examination - Vital Signs Temperature: 98.8 F Blood Pressure: 136/78 Pulse: 78 Respirations: 18 Pulse Ox (%): 96 - Physical Exam General: Alert, In no apparent distress, Cooperative, Obese HEENT: Atraumatic, Normocephalic Neck: Supple, JVD not distended Respiratory: Clear to auscultation bilaterally, Normal air movement, Crackles/rales Cardiovascular: Regular rate/rhythm, Normal S1 S2, No rubs Capillary refill: <2 Seconds Gastrointestinal: Soft and benign, W/out hepatosplenomegaly, No tenderness Musculoskeletal: No clubbing, No swelling, No contractures Integumentary: No rashes, No breakdown Neurological: Normal speech, Normal tone, Cranial nerves 3-12 intact, Normal affect Lymphatics: No axilla or inguinal lymphadenopathy - Studies Laboratory Data (last 24 hrs) 05/24/23 05/24/23 05/24/23 21:05 21:05 20:18 WBC Hgb Hct Plt Count PT 13.0 H INR 1.19 APTT 39.5 H Sodium 138 139 Potassium 3.5 3.3 L BUN 16 15 Creatinine 0.96 0.97 Glucose 123 H 170 H Magnesium 1.5 L Total Bilirubin 0.3 0.3 AST 18 18 ALT 20 19 Alkaline Phosphatase 81 79 05/24/23 19:50 WBC 13.00 H Hgb 13.3 L Hct 40.5 Plt Count 297 PT INR APTT Sodium Potassium BUN Creatinine Glucose Magnesium Total Bilirubin AST ALT Alkaline Phosphatase Imagings Data: l CT scans are performed using dose optimization technique as appropriate and may include automated exposure control or mA/KV adjustment according to patient size. FINDINGS: Chest Wall: No suspicious thyroid nodules or pathologic lymphadenopathy. Lungs: Mild paraseptal emphysema. Reticulation and cylindrical bronchiectasis in the upper lobes bilaterally. Pleura: No significant effusions or pneumothorax. Mediastinum/xiao: Reactive size hilar lymph nodes. Pulmonary arteries/Aorta: Suboptimal contrast opacification. Limited evaluation of the subsegmental pulmonary arteries. No filling defect identified. No aortic aneurysm. Heart: No significant pericardial effusion. Cardiomegaly. Upper abdomen: No acute abnormality.Fat containing ventral hernia. Bones: No acute abnormality. IMPRESSION: Negative for clinically significant pulmonary embolism. Evaluation of the subsegmental pulmonary arteries limited by poor contrast opacification. Mild emphysema and fibrotic lung changes suggesting combined pulmonary fibrosis emphysema (CPFE). No superimposed acute process. Assessment and Plan - Problems (Diagnosis) (1) Chest pain Current Visit: Yes Status: Acute Plan: Will trend cardiac enzymes Will monitor telemetry Started on aspirin and statin EKG did not show any acute changes sinus ST-T suggestive of ischemia Patient denies any chest pain Will get an echocardiogram Cardiology consult (2) Febrile illness, acute Current Visit: Yes Status: Acute Plan: Obtain cultures Started on empirical antibiotics change antibiotic as per sensitivity (3) Leukocytosis Current Visit: No Status: Acute Plan: Monitor CBC daily Lactic acid normal (4) Diabetes Current Visit: Yes Status: Chronic Plan: Insulin Sliding scale Accucheck qAC and HS - Advance Directives Does patient have a Living Will: No Does patient have a Durable POA for Healthcare: No - Code Status/Comfort Care Code Status: Full Code Time Spent Managing Pts Care (In Minutes): 58
[2023-05-24] MEDS ORDERED: IPRATROPIUM BROM 0.5MG/2.5ML NEB PRN (23:25)
[2023-05-24] MEDS ORDERED: ACETAMINOPHEN 500 MG TAB PO PRN (23:25)
[2023-05-24] MEDS ORDERED: ONDANSETRON 4 MG/2 ML VIAL IV PRN (23:25)
[2023-05-24] MEDS ORDERED: ALBUTEROL 2.5 MG/3 ML NEB SOL NEB PRN (23:25)
[2023-05-24] MEDS ORDERED: TEMAZEPAM 15 MG CAP PO PRN (23:38)
[2023-05-24] MEDS ORDERED: HYDROCODONE/APAP 10/325 TAB PO PRN (23:38)
[2023-05-25 00:44] LABS: Troponin High Sensitivity 8.7 pg/mL (<58.9)
[2023-05-25 00:45] LABS: Thyroid Stimulating Hormone 17.5 uIU/mL (0.358-3.740)
[2023-05-25 01:17] VITALS: BMI 48.2
[2023-05-25 05:30] LABS: Sqamous Epithelial None Seen /HPF (None Seen); Urine Bacteria None Seen /HPF (<20); Urine Bilirubin NEGATIVE (Negative); Urine Blood 1+ (Negative); Urine Clarity Clear (Clear); Urine Color Light-Yellow (Yellow); Urine Culture Reflex Order NOT NEEDED; Urine Glucose NEGATIVE (Negative); Urine Ketones NEGATIVE (Negative); Urine Microscopic Reflex YN ORDER UMIC; Urine Mucus Slight /HPF (None Seen); Urine Nitrite NEGATIVE (Negative); Urine Protein NEGATIVE (Negative); Urine RBC <5 /HPF (None Seen); Urine Urobilinogen Normal (Normal); Urine WBC <5 /HPF (<5); Urine pH 5.5 (5.0-7.0)
[2023-05-25 05:31] LABS: Specific Gravity > 1.030 (1.005-1.030)
[2023-05-25] MEDS: LEVOTHYROXINE SOD 0.05 MG TABLET PO SCH (06:09)
[2023-05-25 06:45] LABS: Absolute Basophils 0.1 K/uL (0-0.5); Absolute Eosinophils 0.3 K/uL (0-0.5); Absolute Lymphocytes (CBC) 2.3 K/uL (0.7-4.9); Absolute Monocytes 0.7 K/uL (0.1-1.3); Absolute Neutrophil 5.6 K/uL (1.8-8.0); Basophils % 0.7 % (0-1.3); Eosinophils % 3.2 % (0-4.4); Lymphocytes % 25.3 % (15.3-44.8); MCH 31.8 pg (27.0-35.0); MCHC 33.3 g/dL (32.0-36.0); MCV 95.6 fL (80-100); MPV 7.7 fL (7.6-11.3); Monocytes % 8.3 % (3.3-12.3); Neutrophils % 62.5 % (41.7-73.7); Platelets 263 thou/uL (152-406); RBC Red Blood Cell Count 4.08 M/uL (4.33-5.43); Red Cell Distribution Width 13.6 % (12.1-15.2)
[2023-05-25 07:05] LABS: Albumin 3.1 g/dL (3.4-5.0); Albumin/Globulin Ratio 0.8 (1.1-1.8); Anion Gap 4.8 mEq/L (5.0-15.0); Bilirubin Total 0.4 mg/dL (0.2-1.0); Globulin 3.8 g/dL (2.3-3.5); Potassium 3.8 mEq/L (3.5-5.1); Protein, Total 6.9 g/dL (6.4-8.2)
[2023-05-25] MEDS ORDERED: LEVOTHYROXINE SOD 0.025 MG TAB PO SCH (07:30)
[2023-05-25] MEDS: INSULIN REGULAR (HUMAN) 100 UNIT/ML SQ SCH (07:30)
[2023-05-25] MEDS ORDERED: INFLUENZA VACCINE (for 6+ mo) 0.5 ML DOSE IMVAC ONE (08:00)
[2023-05-25] MEDS ORDERED: CEFEPIME 1 GM in NA CHLORIDE 0.9% 100 ML IV SCH (08:00)
[2023-05-25] MEDS: ASPIRIN 81 MG CHEWABLE TABLET PO SCH (08:44)
[2023-05-25] MEDS: POTASSIUM CL SA 10 MEQ TAB PO ONE (08:45)
[2023-05-25] MEDS: METFORMIN HCL 500 MG TAB PO SCH (08:46)
[2023-05-25] MEDS: DOCUSATE NA 100 MG CAP PO SCH (08:46)
[2023-05-25] MEDS: AZITHROMYCIN IV 500 MG in NA CHLORIDE 0.9% 250 ML IVPB SCH (08:47)
[2023-05-25] MEDS: ENOXAPARIN 40 MG/0.4 ML SQ SCH (08:47)
[2023-05-25] MEDS: CEFEPIME 2 GM in NA CHLORIDE 0.9% 100 ML IV SCH (08:47)
[2023-05-25] MEDS: TESTOSTERONE CYPIONATE 200 MG/ML VIAL IM SCH (08:47)
[2023-05-25] MEDS ORDERED: [UNRECOGNIZED DRUG - OTHER] IM SCH (09:00)
[2023-05-25 09:19] VITALS: O2SAT 94
--- NOTE | 2023-05-25 12:41 | EKG ---
Test Date: 2023-05-24 Test Time: 19:25:07 Stained Glass Painter: NEAL MEASUREMENT RESULTS: Intervals: Rate: 98 KS: 154 QRSD: 110 QT: 366 QTc: 467 Crystal: P: 33 KS: 154 QRS: -64 T: 60 INTERPRETIVE STATEMENTS: Normal sinus rhythm Left anterior fascicular block Abnormal ECG Compared to ECG 08/27/2022 06:13:04 No significant changes Electronically Signed On 05-25-23 12:40:15 CDT by Bhavesh Antonio
[2023-05-25 13:43] VITALS: BP 133/73; TEMP 98.8
--- NOTE | 2023-05-25 14:59 | P.DS ---
Admission Date: 05/24/23 Discharge Date: 05/25/23 Disposition: ROUTINE DISCHARGE Discharge Condition: FAIR Reason for Admission: fever/ CP - Problems (1) Fever Current Visit: Yes Status: Acute (2) Dental infection Current Visit: Yes Status: Acute (3) Combined pulmonary fibrosis and emphysema (CPFE) Current Visit: Yes Status: Acute Brief History of Present Illness: 58 yrs old Male with past medical history of Chronic pain; Diverticulitis; Diabetes mellitus, Hypothyroidism; Hypercholesterolemia , came to ER with chest pain and shortness of breath which has been going on for 3 days and has been progressively worsening. Patient denies any nausea vomiting or diarrhea. Patient was found to have low-grade fever with temperature up to 100.9 in the ED. He also complained of bilateral lower extremity swelling. Patient was assessed in the ER, CTA thorax did not show any pulm embolism, demonstrated emphysema plus fibrotic lung changes. Patient was admitted for further management. Hospital Course: Troponin monitored was negative. Patient was seen and evaluated by cardiology, ACS ruled out, outpatient follow-up was recommended. Patient had a single episode of fever in the ER. He also had mild leukocytosis which resolved. He attributes the fever to new painful swelling on the right mandible with suspected dental infection. Otherwise patient has been asymptomatic does not look septic, he is currently chest pain-free. He is discharged with oral Augmentin for possible dental infection. Vital Signs/Physical Exam: Temp Pulse Resp BP Pulse Ox 98.8 F 70 17 133/73 95 05/25/23 13:20 05/25/23 13:25 05/25/23 13:25 05/25/23 13:25 05/25/23 12:00 General: Alert, In no apparent distress, Oriented x3 HEENT: Other (Mildly tender nodule palpated along the right mandibular line.), Sclerae nonicteric Neck: JVD not distended Respiratory: Clear to auscultation bilaterally, Normal air movement Cardiovascular: No edema, Regular rate/rhythm, Normal S1 S2 Gastrointestinal: Normal bowel sounds, Soft and benign, Non-distended, No tenderness Musculoskeletal: No swelling Integumentary: No rashes, No cyanosis Neurological: Normal strength at 5/5 x4 extr Laboratory Data at Discharge: WBC 8.90 thou/uL (4.3-10.9) 05/25/23 06:06 Hgb 13.0 g/dL (13.6-17.9) L 05/25/23 06:06 Hct 39.0 % (39.6-49.0) L 05/25/23 06:06 Plt Count 263 thou/uL (152-406) 05/25/23 06:06 PT 13.0 SECONDS (9.5-12.5) H 05/24/23 21:05 INR 1.19 05/24/23 21:05 APTT 39.5 SECONDS (24.3-36.9) H 05/24/23 21:05 Sodium 139 mEq/L (136-145) 05/25/23 06:06 Potassium 3.8 mEq/L (3.5-5.1) 05/25/23 06:06 BUN 16 mg/dL (7-18) 05/25/23 06:06 Creatinine 0.95 mg/dL (0.70-1.30) 05/25/23 06:06 Glucose 119 mg/dL (74-106) H 05/25/23 06:06 Magnesium 1.5 mg/dL (1.6-2.4) L 05/24/23 20:18 Total Bilirubin 0.4 mg/dL (0.2-1.0) 05/25/23 06:06 AST 17 U/L (15-37) 05/25/23 06:06 ALT 18 U/L (16-61) 05/25/23 06:06 Alkaline Phosphatase 75 U/L (45-117) 05/25/23 06:06 Home Medications: Amox/Clavulanate [Augmentin 875-125 Tab] 1 each PO BID #20 tab 05/25/23 Aspirin [Aspirin EC] 81 mg PO DAILY #30 tab 05/25/23 Atorvastatin Calcium [Lipitor] 40 mg PO BEDTIME #30 tab 05/25/23 Gabapentin 400 mg PO BEDTIME 05/25/23 Levothyroxine [Synthroid*] 0.05 mg PO DAILYAC #30 tab 05/25/23 Metformin HCl 500 mg PO DAILY 05/25/23 [place]-3 Fatty Acids [[place]-3] 1,000 mg PO BID #60 cap 05/25/23 Testosterone Cypionate [Testone Cik] 200 mg IM SEECOM 05/25/23 New Medications: Aspirin [Aspirin EC] 81 mg PO DAILY #30 tab Amox/Clavulanate [Augmentin 875-125 Tab] 1 each PO BID #20 tab Atorvastatin Calcium [Lipitor] 40 mg PO BEDTIME #30 tab [place]-3 Fatty Acids [[place]-3] 1,000 mg PO BID #60 cap Levothyroxine [Synthroid*] 0.05 mg PO DAILYAC #30 tab Diet: ADA Activity: Ad iris Followup: Bhavesh Antonio MD [ACTIVE - CAN ADMIT] - 1-2 Weeks Alexandria Carrasco NP [Primary Care Provider] - 1 Week Time spent managing pt's care (in minutes): 33
--- NOTE | 2023-05-25 16:59 | CON ---
Date of Consultation: 05/25/2023 Reason For Consultation: Chest pain. History Of Present Illness: 58-year-old male, history of diabetes, hypothyroidism, dyslipidemia, pre sented with shortness of breath and chest pain. Chest pain is left-sided, had 1 episode yesterday an d resolved. Denies having nausea, vomiting, or diaphoresis. No exertional symptoms. Past Medical History: As outlined above in the HPI. Medications: Refer to reconciliation sheet for detailed list. Allergies: IODINE. Family History: No premature coronary artery disease or cancer. Social History: Does not smoke or drink. Does not use any drugs. Review of Systems: All systems reviewed and they were negative except as mentioned in the HPI. Physical Examination: Vital Signs: Reviewed. Head and Neck: Pupils are equal, reactive to light. Intact eye movements. No JVD. No cervical lym phadenopathy. Neck is supple. Thyroid is not enlarged. Lungs: Clear to auscultation bilaterally. No rhonchi, wheezing, or crackles. No accessory muscle u se. Heart: Regular rate and rhythm. No extra sounds. Abdomen: Soft, nontender. Bowel sounds positive. No organomegaly. No masses or hernia. No rigidi ty or rebound. Extremities: No edema, clubbing, or cyanosis. Intact pulses. Skin: No rash or nodules. Neurologic: Alert, awake, oriented x3. No acute focal deficits appreciated. Investigations: Cardiac enzymes x3 are negative. BUN 16, creatinine 0.95, hemoglobin 13. Assessment And Recommendations: 1.Chest pain. It is atypical with negative cardiac enzymes. From Cardiology standpoint, patient ca n be released and recommend to do outpatient exercise nuclear stress test. 2.Dyslipidemia. Continue statin. 3.Hypertension. Blood pressure is controlled. Continue current therapy. SR/MODL Voice ID: [id number] Report ID: [id number]
[2023-05-25] MEDS ORDERED: ATORVASTATIN 40 MG TAB PO SCH (21:00)
[2023-05-25] MEDS ORDERED: GABAPENTIN 400 MG CAP PO SCH (21:00)
== END 2023-05-25 16:14 | disposition home or self-care (01) | DRG 158 ==
LOC: ER 19:15 → ERHOLD 23:25 → 4TH 05-25 00:37
PROVIDERS: ADMIT Family Medicine; ATTEND Internal Medicine
DX: K04.7 Periapical abscess without sinus (principal); Z68.42 Body mass index [BMI] 45.0-49.9, adult; E66.9 Obesity, unspecified; E11.9 Type 2 diabetes mellitus without complications; E03.9 Hypothyroidism, unspecified; J84.10 Pulmonary fibrosis, unspecified; J43.9 Emphysema, unspecified; E78.00 Pure hypercholesterolemia, unspecified; D72.829 Elevated white blood cell count, unspecified; Z93.3 Colostomy status; Z79.84 Long term (current) use of oral hypoglycemic drugs; Z79.52 Long term (current) use of systemic steroids; Z79.82 Long term (current) use of aspirin; Z79.899 Other long term (current) drug therapy; Z87.891 Personal history of nicotine dependence
CPT/HCPCS: 36415; 71275; 80048; 80053; 80076; 81001; 82947; 83605; 83735; 83880; 84439; 84443; 84484; 85025; 85610; 85730; 87040; 93005; 94760; J0692; J0696; J1200; J1650; J3010; J7050; Q9967

== ENCOUNTER 2024-05-17 18:47 | Emergency (ER) | payer MEDICAID, OTHER ==
--- NOTE | 2024-05-17 22:09 | RAD REPORT ---
EXAM: Chest Single View HISTORY: 59 years Male CHEST PAIN COMPARISON: 05/09/2024 FINDINGS: LUNGS/PLEURA: Diffuse prominence of the pulmonary interstitium. This is increased. CARDIAC/MEDIASTINUM: Cardiomegaly. UPPER ABDOMEN: No significant abnormality. BONES: No acute abnormality. LINES/TUBES/OTHER: N/A IMPRESSION: Increased pulmonary edema compared with 05/09/2024.
[2024-05-17] MEDS ORDERED: DIPHENHYDRAMINE 25 MG TAB/CAP ONE (22:14)
[2024-05-17 22:34] LABS: Absolute Basophils 0.1 K/uL (0-0.5); Absolute Eosinophils 0.2 K/uL (0-0.5); Absolute Lymphocytes (CBC) 1.2 K/uL (0.7-4.9); Absolute Monocytes 0.5 K/uL (0.1-1.3); Absolute Neutrophil 6.8 K/uL (1.8-8.0); Basophils % 0.6 % (0-1.3); Eosinophils % 2.4 % (0-4.4); Hematocrit 46.3 % (39.6-49.0); Hemoglobin 15.8 g/dL (13.6-17.9); Lymphocytes % 13.7 % (15.3-44.8); MCH 30.7 pg (27.0-35.0); MCHC 34.2 g/dL (32.0-36.0); MCV 89.9 fL (80-100); MPV 8.1 fL (7.6-11.3); Monocytes % 5.9 % (3.3-12.3); Neutrophils % 77.4 % (41.7-73.7); Platelets 245 thou/uL (152-406); RBC Red Blood Cell Count 5.16 M/uL (4.33-5.43); Red Cell Distribution Width 13.9 % (12.1-15.2)
[2024-05-17 22:59] LABS: Albumin 3.9 g/dL (3.4-5.0); Albumin/Globulin Ratio 0.9 (1.1-1.8); Anion Gap 6.3 mEq/L (5.0-15.0); Bilirubin Direct 0.2 mg/dL (0-0.2); Bilirubin Indirect, Calculated 0.4 mg/dL (0.2-0.8); Bilirubin Total 0.6 mg/dL (0.2-1.0); Globulin 4.4 g/dL (2.3-3.5); Potassium 3.3 mEq/L (3.5-5.1); Protein, Total 8.3 g/dL (6.4-8.2); Troponin High Sensitivity 15.6 pg/mL (<58.9)
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
[2024-05-17 23:55] VITALS: TEMP 98.8
[2024-05-17 23:57] VITALS: BP 101/71; O2SAT 99
--- NOTE | 2024-05-18 12:33 | EKG ---
Test Date: 2024-05-17 Test Time: 19:32:28 Photographer Motion Picture: BETO MEASUREMENT RESULTS: Intervals: Rate: 80 MD: 160 QRSD: 112 QT: 384 QTc: 442 Converse: P: 12 MD: 160 QRS: -58 T: 35 INTERPRETIVE STATEMENTS: Normal sinus rhythm Left anterior fascicular block Abnormal ECG Compared to ECG 08/28/2023 21:03:57 Left anterior fascicular block now present Electronically Signed On 05-18-24 12:32:02 CDT by Navneet Mitchell
== END 2024-05-17 23:38 | disposition home or self-care (01) ==
LOC: ER 18:47
DX: J81.1 Chronic pulmonary edema (principal); G89.29 Other chronic pain
CPT/HCPCS: 36415; 71045; 80048; 80076; 84484; 85025; 93005; 99285

== ENCOUNTER 2024-06-27 01:36 | Emergency (ER) | payer MEDICAID ==
[2024-06-27] MEDS ORDERED: ASPIRIN 81 MG CHEWABLE TABLET ONE (02:20)
[2024-06-27] MEDS ORDERED: KETOROLAC 30 MG/ML INJ ONE (02:20)
[2024-06-27 02:34] LABS: Absolute Basophils 0.1 K/uL (0-0.5); Absolute Eosinophils 0.2 K/uL (0-0.5); Absolute Lymphocytes (CBC) 1.5 K/uL (0.7-4.9); Absolute Monocytes 0.4 K/uL (0.1-1.3); Absolute Neutrophil 5.8 K/uL (1.8-8.0); Basophils % 0.6 % (0-1.3); Eosinophils % 2.7 % (0-4.4); Hemoglobin 15.1 g/dL (13.6-17.9); Lymphocytes % 19.1 % (15.3-44.8); MCH 29.8 pg (27.0-35.0); MCHC 33.5 g/dL (32.0-36.0); MCV 88.9 fL (80-100); Monocytes % 4.6 % (3.3-12.3); Nucleated Red Blood Cells % 0.1 % (0-0); Platelets 263 thou/uL (152-406); RBC Red Blood Cell Count 5.07 M/uL (4.33-5.43); Red Cell Distribution Width 14.4 % (12.1-15.2)
[2024-06-27 02:41] LABS: PT Prothrombin Time 12.2 SECONDS (10-13.0); Protime INR 1.07
[2024-06-27 02:53] LABS: Albumin 3.3 g/dL (3.4-5.0); Albumin/Globulin Ratio 0.8 (1.1-1.8); Anion Gap 7.6 mEq/L (5.0-15.0); Bilirubin Direct 0.2 mg/dL (0-0.2); Bilirubin Indirect, Calculated 0.3 mg/dL (0.2-0.8); Bilirubin Total 0.5 mg/dL (0.2-1.0); Globulin 3.9 g/dL (2.3-3.5); Potassium 3.6 mEq/L (3.5-5.1); Protein, Total 7.2 g/dL (6.4-8.2); Troponin High Sensitivity 6.1 pg/mL (<58.9)
[2024-06-27] MEDS ORDERED: methocarbamoL 750 MG TAB ONE (05:38)
--- NOTE | 2024-06-27 05:48 | RAD REPORT ---
CLINICAL HISTORY: Chest pain. COMPARISON: None. TECHNIQUE: XR CHEST 1 VIEW 06/27/2024 1:47 AM CDT FINDINGS: The heart is enlarged. There is mild diffuse interstitial prominence. There is no pleural effusion. T here is no pneumothorax. There are no acute osseous findings. IMPRESSION: Possible mild pulmonary edema. Electronically signed by: Rudy Rachel MD 06/27/2024 03:19 AM CDT RP Due to temporary technical issues with the PACS/Boardvote reporting system, reports are being magi d by the in-house radiologist without review as a courtesy to ensure prompt reporting the interpreting radiologist is fully responsible for the content of the report. Transcribed Date/Time: 06/27/2024 5:47 AM
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
--- NOTE | 2024-06-27 06:12 | RAD REPORT ---
CLINICAL HISTORY: Left shoulder pain. COMPARISON: None. TECHNIQUE: XR SHOULDER 2 OR MORE VIEWS LEFT 06/27/2024 5:31 AM CDT FINDINGS: There is no fracture. There is mild narrowing of the left acromioclavicular joint. Soft tissues are u nremarkable. IMPRESSION: No acute osseous findings. Electronically signed by: Rudy Rachel MD 06/27/2024 06:09 AM CDT RP Due to temporary technical issues with the PACS/[employer] reporting system, reports are being magi d by the in-house radiologist without review as a courtesy to ensure prompt reporting the interpreting radiologist is fully responsible for the content of the report. Transcribed Date/Time: 06/27/2024 6:12 AM
[2024-06-27 06:30] VITALS: TEMP 98.2
[2024-06-27 06:45] VITALS: BP 119/71; O2SAT 97
--- NOTE | 2024-06-27 11:56 | EKG ---
Test Date: 2024-06-27 Test Time: 01:50:51 Flight Operations Manager: ALLEGRA MEASUREMENT RESULTS: Intervals: Rate: 83 WI: 168 QRSD: 114 QT: 396 QTc: 465 [place]: P: 32 WI: 168 QRS: -68 T: 32 INTERPRETIVE STATEMENTS: Normal sinus rhythm Low voltage QRS Left anterior fascicular block Possible Lateral infarct, age undetermined Abnormal ECG Compared to ECG 05/17/2024 19:32:28 Low QRS voltage now present Myocardial infarct finding now present Electronically Signed On 06-27-24 11:55:50 CDT by Navneet Mitchell
== END 2024-06-27 06:16 | disposition home or self-care (01) ==
LOC: ER 01:36
DX: M19.012 Primary osteoarthritis, left shoulder (principal); R07.89 Other chest pain; G89.29 Other chronic pain; E11.9 Type 2 diabetes mellitus without complications
CPT/HCPCS: 36415; 71045; 80048; 80076; 83735; 83880; 84484; 85025; 85610; 93005; 96374; 99285